=== PATIENT | female | born 1935 | race Caucasian/White ===

== ENCOUNTER 2016-06-10 17:25 | Inpatient (IN) | payer MEDICARE ==
[2016-06-10] MEDS ORDERED: ONDANSETRON 4 MG TAB.RAPDIS PO ONE (17:34)
[2016-06-10] MEDS ORDERED: NORMAL SALINE 1000 ML 1,000 ML IV ONE ×2 (17:34→19:35)
[2016-06-10] MEDS ORDERED: MORPHINE SULFATE 10 MG/ML INJ IM ONE (17:34)
--- NOTE | 2016-06-10 17:34 | ER Document Report ---
ED Medical Screen (RME) - General Stated Complaint: ABDOMINAL PAIN Notes: Patient is an 81-year-old female presents emergency or abdominal pain. Daughter states that her symptoms started about 20 minutes ago. Admits to generalized abdominal pain. Admits to nausea with vomiting with dark emesis x2. Admits to a bowel movement today which was soft but thin. Had a colonoscopy 2 weeks ago with polyps. I have greeted and performed a rapid initial assessment of this patient. A comprehensive ED assessment and evaluation of the patient, analysis of test results and completion of the medical decision making process will be conducted by additional ED providers. TRAVEL OUTSIDE OF THE [place] IN LAST 30 DAYS: No - Related Data Allergies/Adverse Reactions: No Known Allergies Allergy (Verified 03/11/16 11:08) Past Medical History GI Medical History: Reports: Hx Gastroesophageal Reflux Disease Musculoskeltal Medical History: Reports Hx Arthritis Past Surgical History: Reports: Hx Abdominal Surgery - hernia, polyps removed, Hx Herniorrhaphy, Hx Hysterectomy, Hx Orthopedic Surgery - Right Carpal tunnel surgery, Other - Ex lap with lysis of adhesions, July 2015. Colonoscopy about 12 years ago. - Immunizations Hx Diphtheria, Pertussis, Tetanus Vaccination: Yes Physical Exam - Vital signs Vitals: Temp Pulse Resp BP Pulse Ox 97.5 F 85 32 H 83/59 L 99 06/10/16 17:30 06/10/16 17:30 06/10/16 17:30 06/10/16 17:30 06/10/16 17:30 Course - Vital Signs Vital signs: Temp Pulse Resp BP Pulse Ox 97.5 F 85 32 H 83/59 L 99 06/10/16 17:30 06/10/16 17:30 06/10/16 17:30 06/10/16 17:30 06/10/16 17:30
[2016-06-10] MEDS ORDERED: ONDANSETRON HCL INJ/PF 4 MG/2 ML SDV ONE (18:02)
[2016-06-10 18:22] LABS: ABSOLUTE BASOPHILS # (AUTO) 0.1 10^3/uL (0.0-0.2); ABSOLUTE EOSINOPHILS # (AUTO) 0.1 10^3/uL (0.0-0.6); ABSOLUTE LYMPHOCYTES (AUTO) 3.1 10^3/uL (0.5-4.7); ABSOLUTE MONOCYTES (AUTO) 0.6 10^3/uL (0.1-1.4); ABSOLUTE NEUT (AUTO) 9.6 10^3/uL (1.7-8.2); BASOPHILS % (AUTO) 0.6 % (0-2); HEMATOCRIT 43.5 % (36.0-47.0); HEMOGLOBIN 14.2 g/dL (12.0-15.5); HGB HCT DIFFERENCE -0.9; LYMPHOCYTES % (AUTO) 22.8 % (13-45); MEAN CORPUSCULAR HEMOGLOBIN 30.1 pg (27.0-33.4); MEAN CORPUSCULAR HGB CONC 32.5 g/dL (32.0-36.0); MEAN CORPUSCULAR VOLUME 93 fl (80-97); MONOCYTES % (AUTO) 4.8 % (3-13); RED CELL DISTRIBUTION WIDTH 14.4 % (11.5-14.0); SEGMENTED NEUTROPHILS % (AUTO) 70.8 % (42-78); WHITE BLOOD COUNT 13.6 10^3/uL (4.0-10.5)
[2016-06-10 18:41] LABS: ALANINE AMINOTRANSFERASE 28 U/L (9-52); ALBUMIN 4.3 g/dL (3.5-5.0); ALKALINE PHOSPHATASE 121 U/L (38-126); ANION GAP 16 (5-19); ASPARTATE AMINO TRANSFERASE 22 U/L (14-36); BILIRUBIN,TOTAL 0.7 mg/dL (0.2-1.3); BLOOD UREA NITROGEN 20 mg/dL (7-20); CALCIUM 11.4 mg/dL (8.4-10.2); CARBON DIOXIDE 26 mmol/L (22-30); CHLORIDE 100 mmol/L (98-107); CREATINE KINASE 28 U/L (30-135); CREATININE RESULT 0.61 mg/dL (0.52-1.25); GLUCOSE 148 mg/dL (75-110); LIPASE 121.2 U/L (23-300); MAGNESIUM 1.8 mg/dL (1.6-2.3); POTASSIUM 4.6 mmol/L (3.6-5.0); SODIUM 141.9 mmol/L (137-145); TOTAL PROTEIN 7.5 g/dL (6.3-8.2)
[2016-06-10] MEDS ORDERED: MORPHINE SULFATE 10 MG/ML INJ IV ONE ×2 (18:46→20:21)
[2016-06-10 18:52] LABS: CREATINE KINASE MB 0.43 ng/mL (<4.55)
[2016-06-10 18:53] LABS: TROPONIN I < 0.012 ng/mL
--- NOTE | 2016-06-10 18:58 | ER Document Report ---
ED GI/ - General Chief Complaint: Abdominal Pain Stated Complaint: ABDOMINAL PAIN Time seen by provider: 18:00 Mode of Arrival: Ambulatory Information source: Patient, Relative, [facility] Records Notes: This 81-year-old female patient comes in complaining of abdominal pain with nausea and vomiting. She reports the pain started about 4 PM and was quickly proceeded by nausea with vomiting twice. She reports this pain is similar to her prior small bowel obstructions. She was admitted on 08/03/2015 with exploratory laparotomy and lysis of adhesions on 08/04/2015. She was admitted again on 03/11/2016 and treated conservatively with NG suction. She reports she was feeling well until the last several hours. TRAVEL OUTSIDE OF THE [place] IN LAST 30 DAYS: No - Related Data Allergies/Adverse Reactions: No Known Allergies Allergy (Verified 06/10/16 17:31) Past Medical History - General Information source: Patient, [facility] Records - Social History Smoking Status: Former Smoker Cigarette use (# per day): No Chew tobacco use (# tins/day): No Smoking Education Provided: No Frequency of alcohol use: None Drug Abuse: None Occupation: retired Lives with: Alone Family History: CAD, CVA, DM, Malignancy Patient has suicidal ideation: No Patient has homicidal ideation: No - Past Medical History Cardiac Medical History: Reports: None Pulmonary Medical History: Reports: None EENT Medical History: Reports: None Neurological Medical History: Reports: None Endocrine Medical History: Reports: None Renal/ Medical History: Reports: None GI Medical History: Reports: Hx Gastroesophageal Reflux Disease Musculoskeltal Medical History: Reports Hx Arthritis Psychiatric Medical History: Reports: None Past Surgical History: Reports: Hx Abdominal Surgery - Exploratory laparotomy with lysis of adhesions and detorsion of a volvulus., Hx Herniorrhaphy - Inguinal hernia repair, Hx Hysterectomy, Hx Orthopedic Surgery - Right Carpal tunnel surgery, Other - Patient reports having a colonoscopy 2 weeks ago at which time several poly - Immunizations Hx Diphtheria, Pertussis, Tetanus Vaccination: Yes Hx Pneumococcal Vaccination: 01/10/16 Review of Systems - Review of Systems Constitutional: No symptoms reported EENT: No symptoms reported Cardiovascular: No symptoms reported Respiratory: No symptoms reported Gastrointestinal: See HPI Genitourinary: No symptoms reported Female Genitourinary: Post menopausal Musculoskeletal: No symptoms reported Skin: No symptoms reported Hematologic/Lymphatic: No symptoms reported Neurological/Psychological: No symptoms reported Physical Exam - Vital signs Vitals: Temp Pulse Resp BP Pulse Ox 97.5 F 85 32 H 83/59 L 99 06/10/16 17:30 06/10/16 17:30 06/10/16 17:30 06/10/16 17:30 06/10/16 17:30 Interpretation: Hypotensive - General General appearance: Alert, Anxious In distress: Mild - HEENT Head: Normocephalic, Atraumatic Eyes: Normal Pupils: PERRL Neck: Normal - Respiratory Respiratory status: No respiratory distress Breath sounds: Normal - Cardiovascular Rhythm: Regular Heart sounds: Normal auscultation Murmur: No - Abdominal Distension: Distended, Tympanitic Bowel sounds: Hyperactive Tenderness: Tender - Back Back: Normal - Extremities General upper extremity: Normal inspection General lower extremity: Normal inspection - Neurological Neuro grossly intact: Yes - Psychological Associated symptoms: Normal affect, Normal mood - Skin Skin Temperature: Warm Skin Moisture: Dry Skin Color: Normal Course - Vital Signs Vital signs: Temp Pulse Resp BP Pulse Ox 97.5 F 85 32 H 83/59 L 97 06/10/16 17:30 06/10/16 17:30 06/10/16 17:30 06/10/16 17:30 06/10/16 17:45 - Laboratory Result Diagrams: 06/10/16 18:00 06/10/16 18:00 Laboratory results interpreted by me: 06/10/16 06/10/16 18:00 18:00 WBC 13.6 H RDW 14.4 H Absolute Neutrophils 9.6 H Glucose 148 H Calcium 11.4 H Creatine Kinase 28 L - Diagnostic Test Radiology reviewed: Image reviewed, Reports reviewed - Developing small bowel obstruction - EKG Interpretation by Me EKG shows normal: Sinus rhythm, Huffman, Intervals, QRS Complexes, ST-T Waves Rate: Normal - 58 Rhythm: NSR - Consults Dr. Hart Time consulted: 19:30 Consulted provider: will come to ER Discharge - Discharge Clinical Impression: Small bowel obstruction Condition: Stable Disposition: ADMITTED INPATIENT Admitting Provider: Surgicalist Unit Admitted: Telemetry Referrals: CHEN CHOU MD [Primary Care Provider] - Follow up as needed
--- NOTE | 2016-06-10 20:29 | PDOC H&P ---
History of Present Illness Admission Date/PCP: 06/10/16 20:08 CHEN CHOU MD Patient complains of: Abdominal pain nausea and vomiting History of Present Illness: NARENDRA PAPPAS is a 81 year old female presents to the emergency department by ground rescue complaining of acute onset abdominal pain, nausea and vomiting 2 this afternoon. Symptoms were similar to episodes associated with small bowel obstruction last year, is requiring exploratory laparotomy, lysis of adhesions, and in February, requiring nasogastric decompression only. She was seen emerging from reports she is found to have abdominal pain and distention. Acute abdominal series suggested small bowel obstruction. He was consulted she was advised admission. Of note the patient is 2 weeks status post colonoscopy with polypectomy 16 Dr. jay. Patient states she did well after that procedure. Past Medical History Cardiac Medical History: Reports: None Pulmonary Medical History: Reports: None EENT Medical History: Reports: None Neurological Medical History: Reports: None Endocrine Medical History: Reports: None Renal/ Medical History: Reports: None GI Medical History: Reports: Gastroesophageal Reflux Disease Musculoskeltal Medical History: Reports: Arthritis Psychiatric Medical History: Reports: None Past Surgical History Past Surgical History: Reports: Herniorrhaphy - Inguinal hernia repair, Hysterectomy, Orthopedic Surgery - Right Carpal tunnel surgery, Other - Patient reports having a colonoscopy 2 weeks ago with polypectomy 16; Social History Lives with: Alone Smoking Status: Former Smoker Frequency of Alcohol Use: None Hx Recreational Drug Use: No Drugs: None Hx Prescription Drug Abuse: No Family History Family History: CAD, CVA, DM, Malignancy Parental Family History Reviewed: Yes Children Family History Reviewed: Yes Sibling(s) Family History Reviewed.: Yes Medication/Allergy Home Medications: Celecoxib [Celecoxib] 200 mg PO DAILYP PRN 08/03/15 Omeprazole [Omeprazole] 20 mg PO DAILY 08/03/15 Allergies/Adverse Reactions: No Known Allergies Allergy (Verified 06/10/16 17:31) Review of Systems Constitutional: ABSENT: chills, fever(s), headache(s), weight gain, weight loss Eyes: ABSENT: visual disturbances Ears: ABSENT: hearing changes Cardiovascular: ABSENT: chest pain, dyspnea on exertion, edema, orthropnea, palpitations Gastrointestinal: PRESENT: other - Patient is status post post lysis of adhesions, laparotomy, 2016 [facility] Physical Exam Vital Signs: Temp Pulse Resp BP Pulse Ox 97.5 F 85 32 H 83/59 L 97 06/10/16 17:30 06/10/16 17:30 06/10/16 17:30 06/10/16 17:30 06/10/16 17:45 General appearance: PRESENT: mild distress Head exam: PRESENT: normocephalic Eye exam: PRESENT: EOMI Ear exam: PRESENT: normal external ear exam Mouth exam: PRESENT: dry mucosa Neck exam: PRESENT: full ROM Respiratory exam: PRESENT: clear to auscultation tonya Cardiovascular exam: PRESENT: RRR Pulses: PRESENT: normal carotid pulses GI/Abdominal exam: PRESENT: diminished bowel sounds, other - Mildly distended abdomen with diffuse tenderness although no guarding. Rectal exam: PRESENT: deferred Musculoskeletal exam: PRESENT: full ROM Neurological exam: PRESENT: oriented to person, oriented to place, oriented to time, oriented to situation Psychiatric exam: PRESENT: agitated Skin exam: PRESENT: other - Multiple skin lesions consistent with sun damaged skin Results Impressions: Acute Abdomen Series 06/10/16 17:34 IMPRESSION: There is gaseous distention of multiple small bowel loops most consistent with an ileus pattern. The possibility of a developing small bowel obstruction cannot be completely excluded however. Clinical correlation and followup is recommended. Status: Image reviewed by me - Acute abdominal series reviewed; multiple dilated loops of small bowel with air-fluid levels; no free air; some scattered pockets of air in the colon Assessment & Plan - Diagnosis (1) Small bowel obstruction Is this a current diagnosis for this admission?: YesPlan: 1. Admission, IV fluids, nasogastric decompression, peptic ulcer prophylaxis. 2. If patient no better in the morning, we'll obtain contrast study through the nasogastric tube; explained the plan to the patient and her family. I believe they understand and agree to proceed. - Time Time Spent: 50 to 70 Minutes Critical Time spent with patient: 15-24 minutes Anticipated discharge: Home - Inpatient Certification Based on my medical assessment, after consideration of the patient's comorbidities, presenting symptoms, or acuity I expect that the services needed warrant INPATIENT care.: Yes I certify that my determination is in accordance with my understanding of Medicare's requirements for reasonable and necessary INPATIENT services [42 CFR 412.3e].: Yes Medical Necessity: Need For IV Fluids, Need for Pain Control
--- NOTE | 2016-06-10 20:32 | EKG REPORT ---
SEVERITY:- NORMAL ECG - SINUS RHYTHM : Confirmed by: Minerva Montez MD 10-Jun-2016 20:31:53
[2016-06-10] MEDS ORDERED: LIDOCAINE 2% JELLY 5 ML TUBE TOP ONE (20:55)
[2016-06-10] MEDS: RINGERS SOLUTION,LACTATED 1,000 ML IV PRN (21:00)
[2016-06-10] MEDS ORDERED: FAMOTIDINE INJ/PF 20 MG/2 ML SDV IV ONE (22:00)
[2016-06-11] MEDS ORDERED: MORPHINE SULFATE 10 MG/ML INJ IV PRN (00:11)
[2016-06-11] MEDS ORDERED: PROMETHAZINE HCL INJ 25 MG/1 ML VIAL IV PRN (00:20)
[2016-06-11 00:23] LABS: APPEARANCE,URINE SLIGHTLY-CLOUDY; BILIRUBIN,URINE NEGATIVE (NEGATIVE); GLUCOSE, URINE NEGATIVE (NEGATIVE); KETONES,URINE 20 mg/dL (NEGATIVE); LEUKOCYTE ESTERASE,URINE NEGATIVE (NEGATIVE); NITRITE,URINE NEGATIVE (NEGATIVE); PROTEIN,URINE NEGATIVE (NEGATIVE); URINE SPECIFIC GRAVITY 1.016; UROBILINOGEN,URINE NEGATIVE mg/dL (<2.0)
[2016-06-11 09:52] LABS: ABSOLUTE LYMPHOCYTES (AUTO) 0.9 10^3/uL (0.5-4.7); ABSOLUTE NEUT (AUTO) 13.9 10^3/uL (1.7-8.2); BASOPHILS % (AUTO) 0.1 % (0-2); HEMATOCRIT 46.9 % (36.0-47.0); HEMOGLOBIN 15.3 g/dL (12.0-15.5); LYMPHOCYTES % (AUTO) 5.8 % (13-45); MEAN CORPUSCULAR HEMOGLOBIN 30.6 pg (27.0-33.4); MEAN CORPUSCULAR HGB CONC 32.6 g/dL (32.0-36.0); MEAN CORPUSCULAR VOLUME 94 fl (80-97); MONOCYTES % (AUTO) 6.4 % (3-13); RED CELL DISTRIBUTION WIDTH 14.8 % (11.5-14.0); SEGMENTED NEUTROPHILS % (AUTO) 87.7 % (42-78); WHITE BLOOD COUNT 15.9 10^3/uL (4.0-10.5)
--- NOTE | 2016-06-11 09:53 | PDOC PROGRESS REPORT ---
Subjective Progress Note for:: 06/11/16 Subjective:: The patient feels no better; denies flatus Physical Exam Vital Signs: Temp Pulse Resp BP Pulse Ox 97.5 F 114 H 16 119/49 L 90 L 06/11/16 07:22 06/11/16 07:22 06/11/16 07:22 06/11/16 07:22 06/11/16 07:22 Intake & Output 06/10/16 06/11/16 06/12/16 06:59 06:59 06:59 Intake Total 1421 Output Total 900 Balance 521 Weight 50.9 kg General appearance: PRESENT: mild distress GI/Abdominal exam: PRESENT: other - Nasogastric tube draining bilious material, minimal amount in receptacle; Abdomen still slightly distended and diffusely tender Results Laboratory Results: 06/10/16 23:36 Urine Color YELLOW Urine Appearance SLIGHTLY-CLOUDY Urine pH 6.0 Ur Specific [place] 1.016 Urine Protein NEGATIVE Urine Glucose (UA) NEGATIVE Urine Ketones 20 H Urine Blood NEGATIVE Urine Nitrite NEGATIVE Ur Leukocyte Esterase NEGATIVE Urine WBC (Auto) 1 Urine RBC (Auto) 1 Impressions: Chest X-Ray 06/10/16 00:00 IMPRESSION: NG tube with its tip in the left upper quadrant presumably in the stomach. Acute Abdomen Series 06/10/16 17:34 IMPRESSION: There is gaseous distention of multiple small bowel loops most consistent with an ileus pattern. The possibility of a developing small bowel obstruction cannot be completely excluded however. Clinical correlation and followup is recommended. KUB X-Ray 06/11/16 07:00 IMPRESSION: Again there is gaseous distention of multiple small bowel loops which again is most consistent with an ileus. Gas and fecal material is identified throughout the colon. Other findings as noted above Status: Imported from PACS - Morning electrolytes and CBC pending Assessment & Plan - Diagnosis (1) Small bowel obstruction Is this a current diagnosis for this admission?: YesPlan: 1. Patient not improved despite NG tube IV fluids. 2. We'll obtain limited contrast study to confirm mechanical obstruction; patient will likely need exploratory surgery today I have explained this to the patient.
[2016-06-11] MEDS: FAMOTIDINE INJ/PF 20 MG/2 ML SDV IV SCH ×2 (09:58→22:50)
[2016-06-11] MEDS: RINGERS SOLUTION,LACTATED 1,000 ML IV PRN ×2 (09:58→16:20)
[2016-06-11 10:16] LABS: ANION GAP 14 (5-19); BLOOD UREA NITROGEN 20 mg/dL (7-20); CALCIUM 9.7 mg/dL (8.4-10.2); CARBON DIOXIDE 21 mmol/L (22-30); CHLORIDE 106 mmol/L (98-107); CREATININE RESULT 0.61 mg/dL (0.52-1.25); GLUCOSE 189 mg/dL (75-110); POTASSIUM 4.3 mmol/L (3.6-5.0)
[2016-06-11] MEDS ORDERED: SUCCINYLCHOLINE CHLORIDE INJ 200 MG/10 ML VIAL ONE (10:43)
[2016-06-11] MEDS ORDERED: PHENYLEPHRINE HCL INJ/PF 10 MG/1 ML SDV ONE ×2 (10:43→15:08)
[2016-06-11] MEDS ORDERED: LIDOCAINE 2% INJ-PF (20 MG/ML) 10 ML AMPUL ONE (10:43)
[2016-06-11] MEDS ORDERED: ONDANSETRON HCL INJ/PF 4 MG/2 ML SDV ONE (10:43)
[2016-06-11] MEDS ORDERED: DEXAMETHASONE SOD PHOSPHATE INJ 4 MG/1 ML VIAL ONE (10:43)
[2016-06-11] MEDS ORDERED: ROCURONIUM BROMIDE INJ 50 MG/5 ML VIAL IV ONE (10:43)
[2016-06-11] MEDS ORDERED: MIDAZOLAM 2 MG/2 ML INJ ONE (12:37)
[2016-06-11] MEDS ORDERED: FENTANYL CITRATE INJ/PF 250 MCG/5 ML AMPULE ONE (12:37)
[2016-06-11] MEDS ORDERED: FENTANYL CITRATE INJ/PF 100 MCG/2 ML AMPUL ONE (12:37)
[2016-06-11] MEDS ORDERED: DEXMEDETOMIDINE INJ 80 MCG/20 ML VIAL IV ONE (12:38)
[2016-06-11] MEDS ORDERED: PROPOFOL INJ 200 MG/20 ML VIAL IV ONE (12:38)
[2016-06-11] MEDS ORDERED: ACETAMINOPHEN 100 ML IV ONE (12:38)
[2016-06-11] MEDS ORDERED: MORPHINE SULFATE 10 MG/ML INJ ONE (12:38)
[2016-06-11] MEDS ORDERED: BUPIVACAINE HCL 0.25 % INJ/PF (2.5 MG/1 ML) 30 ML VIAL ONE (12:53)
[2016-06-11] MEDS ORDERED: CEFAZOLIN INJ 1 GM VIAL ONE (13:06)
[2016-06-11] MEDS ORDERED: BUPIVACAINE INJ/PF LIPOSOME/PF 266 MG/20 ML SDV ONE (14:56)
[2016-06-11] MEDS ORDERED: PROPOFOL 100 ML IV ONE (15:17)
[2016-06-11] MEDS ORDERED: FUROSEMIDE INJ/PF 40 MG/4 ML SDV ONE ×2 (15:44→15:45)
[2016-06-11] MEDS ORDERED: NORMAL SALINE INJ/PF 0.9% 10 ML SDV IV PRN (15:46)
--- NOTE | 2016-06-11 16:05 | Operative Report ---
Operative Report DATE OF SURGERY: 06/11/16 PREOPERATIVE DIAGNOSIS: 1. Small bowel obstruction. 2. Acute abdomen. 3. Metabolic acidosis. 4. Evolving sepsis POSTOPERATIVE DIAGNOSIS: Same with. 1. Intra-abdominal adhesions. 2. Closed loop obstruction of the distal ileum with full-thickness hemorrhagic necrosis of the small bowel. 3. Extensive duodenal and jejunal diverticulum OPERATION: 1. Placement of left subclavian central venous access catheter. 2. Exploratory laparotomy. 3. Lysis of adhesions. 4. Segmental small bowel resection, distal ileum, 85 cm with ilio ileostomy stapled anastomosis SURGEON: SOLOMON ROJAS ANESTHESIA: GA TISSUE REMOVED OR ALTERED: Segment of distal ileum COMPLICATIONS: None ESTIMATED BLOOD LOSS: 50 mL INTRAOPERATIVE FINDINGS: See below PROCEDURE: The patient was taken from the preoperative holding area to the main operating room and general anesthesia was induced. The abdomen was exposed as was the chest. We placed a central line in the left subclavian position using the standard Seldinger technique under sterile conditions. There Was excellent aspiration of blood flow through all 3 lmumens. Biopatch, sutures and sterile dressing applied. The abdomen was prepped and draped in a sterile fashion. Surgical plan a surgical timeout conducted. The abdomen was opened through a standard midline incision above and below the umbilicus along the previous midline scar. There were adhesions between the greater omentum and anterior abdominal wall which were taken down with electrocautery. Entry into the abdominal cavity revealed a significant amount of serosanguineous fluid; approximately 1500 mL was aspirated. Then eviscerated small bowel and revealed the acute problem which was a large closed-loop obstruction involving the distal ileum. The obstructed small bowel was black consistent with full-thickness ischemic necrosis. At the 2 ends of the obstruction were an adhesive band, and a very narrowed lumen at the opposite end. I could not ascertain which was proximal and which was distal as I was more interested in resecting the bowel immediately. To accomplish this, I lysed the single adhesion and then I used a series of clamps to come across the associated mesentery. The specimen was passed off the table as distal ileum. It measured approximately 85 cm. The mesenteric clamps were tied off with 0 and 2-0 Vicryl suture. We returned the remaining intestines to the abdomen, and completed the aspiration of fluid, which was non-feculent, and irrigation of the peritoneal cavity with several liters of warm saline. We now milked the dilated small bowel from the ileum in a retrograde fashion all the way through the jejunum through the duodenum, and then into the stomach excessively aspirating the succus decompressing the small bowel. Of note there were extensive duodenal and jejunal diverticulum of varying sizes. Photographs of the small intestine were taken. The diverticulum did not appear to be involved in the acute pathologic process nor did the colon. Complete visualization of the undersurface of the liver and stomach revealed no other pathology. The gastric tube was confirmed to be in good position. During this time the patient received approximately 2-1/2-3 L of crystalloid, and low-dose Nigel-Synephrine. We now reinspected the small and distal ileum, and felt the 2 ends were suitable for restoring small bowel continuity. Minimal edema, and viability of the intestine appeared to be excellent based on peristalsis, and pink appearance of the serosa. Of note the patient had atherosclerotic aortic disease however there was good blood flow in the small bowel mesentery by palpation. A [id number], functional end-to-end ileoileostomy was created using the CATIA 55 stapler, blue load, and closing the enterotomies with a single firing of the TA 60 stapler. Of note there was a small of her generally viable bowel wall on the proximal ileum which was taken off with a second firing of the TA 60 stapler. We examined the anastomosis and there was no evidence of ischemia or tension, and the patency was confirmed to be excellent. The small bowel mesenteric rent closed with a 2-0 running Vicryl suture. We returned the peritoneal cavity checked for any mechanical bleeding there was none. Nasogastric tube was again confirmed to be in excellent position, and the small bowel had been successfully decompressed of the stagnant. Sponge counts are correct. Abdomen was closed with 2 double-stranded #1 PDS sutures, skin approximated with chiquis, long acting exparell anesthetic local was deployed in the subcutaneous tissues. Dressing was applied. Patient was taken to the ICU in guarded condition. SHe remained extubated with support lines in position.
[2016-06-11 16:07] LABS: ABSOLUTE MONOCYTES (AUTO) 0.3 10^3/uL (0.1-1.4); ABSOLUTE NEUT (AUTO) 4.1 10^3/uL (1.7-8.2); BASOPHILS % (AUTO) 0.4 % (0-2); EOSINOPHILS % (AUTO) 0.2 % (0-6); HGB HCT DIFFERENCE -0.8; LYMPHOCYTES % (AUTO) 17.5 % (13-45); MEAN CORPUSCULAR HEMOGLOBIN 30.4 pg (27.0-33.4); MEAN CORPUSCULAR HGB CONC 32.7 g/dL (32.0-36.0); MEAN CORPUSCULAR VOLUME 93 fl (80-97); MONOCYTES % (AUTO) 6.3 % (3-13); RED BLOOD COUNT 4.08 10^6/uL (3.72-5.28); RED CELL DISTRIBUTION WIDTH 14.3 % (11.5-14.0); SEGMENTED NEUTROPHILS % (AUTO) 75.6 % (42-78); WHITE BLOOD COUNT 5.5 10^3/uL (4.0-10.5)
[2016-06-11 16:14] LABS: HEMOGLOBIN 12.4 g/dL (12.0-15.5)
[2016-06-11 16:19] LABS: ANION GAP 10 (5-19); BLOOD UREA NITROGEN 22 mg/dL (7-20); CALCIUM 8.4 mg/dL (8.4-10.2); CARBON DIOXIDE 19 mmol/L (22-30); CHLORIDE 110 mmol/L (98-107); CREATININE RESULT 0.62 mg/dL (0.52-1.25); GLUCOSE 131 mg/dL (75-110); POTASSIUM 3.8 mmol/L (3.6-5.0); SODIUM 139.3 mmol/L (137-145)
[2016-06-11] MEDS: DEXTROSE 5%-WATER 250 ML with PHENYLEPHRINE HCL 40 MG IV PRN ×2 (16:22)
--- NOTE | 2016-06-11 16:32 | PDOC CONSULTATION ---
Consultation Consult Date: 06/11/16 Attending physician:: SOLOMON ROJAS Consult reason:: Medical Management - post op History of Present Illness Admission Date/PCP: 06/10/16 20:18 CHEN CHOU MD History of Present Illness: NARENDRA PAPPAS is a 81 year old female with no significant past medical history was admitted to Dr. Rojas service when she presented with small bowel obstruction Underwent laparotomy today and small bowel resection for ischemic bowel ; a medical consultation was called Past Medical History Cardiac Medical History: Reports: None Pulmonary Medical History: Reports: None EENT Medical History: Reports: None Neurological Medical History: Reports: None Endocrine Medical History: Reports: None Renal/ Medical History: Reports: None GI Medical History: Reports: Gastroesophageal Reflux Disease Musculoskeltal Medical History: Reports: Arthritis Psychiatric Medical History: Reports: None Past Surgical History Past Surgical History: Reports: Herniorrhaphy - Inguinal hernia repair, Hysterectomy, Orthopedic Surgery - Right Carpal tunnel surgery, Other - Patient reports having a colonoscopy 2 weeks ago with polypectomy 16; Social History Lives with: Alone Smoking Status: Former Smoker Frequency of Alcohol Use: None Hx Recreational Drug Use: No Drugs: None Hx Prescription Drug Abuse: No - Advance Directive Resuscitation Status: Full Code Family History Family History: CAD, CVA, DM, Malignancy Parental Family History Reviewed: Yes Children Family History Reviewed: Yes Sibling(s) Family History Reviewed.: Yes - He Medication/Allergy Home Medications: Omeprazole [Omeprazole] 20 mg PO DAILY 08/03/15 Allergies/Adverse Reactions: No Known Allergies Allergy (Verified 06/10/16 17:31) Review of Systems ROS unobtainable: Due to endotracheal tube Physical Exam Vital Signs: Temp Pulse Resp BP Pulse Ox 97.4 F 80 10 L 82/50 L 100 06/11/16 15:24 06/11/16 15:39 06/11/16 15:39 06/11/16 15:39 06/11/16 15:40 Intake & Output 06/10/16 06/11/16 06/12/16 00:59 00:59 00:59 Intake Total 5742 Output Total 900 2900 Balance -900 2842 Weight 50.9 kg General appearance: PRESENT: other - Intubated and sedated Head exam: PRESENT: atraumatic, normocephalic Eye exam: PRESENT: conjunctiva pink, EOMI, PERRLA. ABSENT: scleral icterus Neck exam: ABSENT: carotid bruit, JVD, lymphadenopathy, thyromegaly Respiratory exam: PRESENT: clear to auscultation tonya. ABSENT: rales, rhonchi, wheezes Cardiovascular exam: PRESENT: RRR. ABSENT: diastolic murmur, rubs, systolic murmur GI/Abdominal exam: PRESENT: distended Neurological exam: PRESENT: other - Patient is sedated Cannot perform Results Laboratory Results: 06/11/16 15:55 06/11/16 15:55 06/10/16 06/11/16 06/11/16 23:36 09:36 09:36 WBC 15.9 H RBC 5.00 Hgb 15.3 Hct 46.9 MCV 94 MCH 30.6 MCHC 32.6 RDW 14.8 H Plt Count 300 Seg Neutrophils % 87.7 H Lymphocytes % 5.8 L Monocytes % 6.4 Eosinophils % 0.0 Basophils % 0.1 Absolute Neutrophils 13.9 H Absolute Lymphocytes 0.9 Absolute Monocytes 1.0 Absolute Eosinophils 0.0 Absolute Basophils 0.0 Sodium 141.0 Potassium 4.3 Chloride 106 Carbon Dioxide 21 L Anion Gap 14 BUN 20 Creatinine 0.61 Est GFR ( Amer) > 60 Est GFR (Non-Af Amer) > 60 Glucose 189 H Calcium 9.7 Triglycerides Urine Color YELLOW Urine Appearance SLIGHTLY-CLOUDY Urine pH 6.0 Ur Specific [place] 1.016 Urine Protein NEGATIVE Urine Glucose (UA) NEGATIVE Urine Ketones 20 H Urine Blood NEGATIVE Urine Nitrite NEGATIVE Ur Leukocyte Esterase NEGATIVE Urine WBC (Auto) 1 Urine RBC (Auto) 1 06/11/16 06/11/16 06/11/16 09:36 15:55 15:55 WBC 5.5 RBC 4.08 Hgb 12.4 D Hct 38.0 MCV 93 MCH 30.4 MCHC 32.7 RDW 14.3 H Plt Count 196 Seg Neutrophils % 75.6 Lymphocytes % 17.5 Monocytes % 6.3 Eosinophils % 0.2 Basophils % 0.4 Absolute Neutrophils 4.1 Absolute Lymphocytes 1.0 Absolute Monocytes 0.3 Absolute Eosinophils 0.0 Absolute Basophils 0.0 Sodium 139.3 Potassium 3.8 Chloride 110 H Carbon Dioxide 19 L Anion Gap 10 BUN 22 H Creatinine 0.62 Est GFR ( Amer) > 60 Est GFR (Non-Af Amer) > 60 Glucose 131 H Calcium 8.4 Triglycerides 67 Urine Color Urine Appearance Urine pH Ur Specific [place] Urine Protein Urine Glucose (UA) Urine Ketones Urine Blood Urine Nitrite Ur Leukocyte Esterase Urine WBC (Auto) Urine RBC (Auto) EKG Comments: NSR Impressions: Acute Abdomen Series 06/10/16 17:34 IMPRESSION: There is gaseous distention of multiple small bowel loops most consistent with an ileus pattern. The possibility of a developing small bowel obstruction cannot be completely excluded however. Clinical correlation and followup is recommended. Small Bowel X-Ray 06/11/16 00:00 IMPRESSION: Study was terminated before completion. Multiple air distended bowel loops are again identified. KUB X-Ray 06/11/16 07:00 IMPRESSION: Again there is gaseous distention of multiple small bowel loops which again is most consistent with an ileus. Gas and fecal material is identified throughout the colon. Other findings as noted above Chest X-Ray 06/11/16 15:42 IMPRESSION: Support lines and tubes are in satisfactory position. Minimal right basilar atelectasis. Small effusions. Assessment & Plan - Diagnosis (1) Ischemic bowel disease Is this a current diagnosis for this admission?: YesPlan: post SB resection management as per surgery (2) Hypotension Qualifiers: Hypotension type: other hypotension type Qualified Code(s): I95.89 - Other hypotension Is this a current diagnosis for this admission?: YesPlan: CVP low at 3 Patient is volume depleted Fluid bolus 1000 ml now increase IV fluids maintain CVP around 8 (normal 4-12 ) early sepsis - mild metabolic acidosis blood cultures Ertapenem IV - Time Critical Time spent with patient: 15-24 minutes
[2016-06-11] MEDS: PROPOFOL 100 ML IV PRN (17:09)
[2016-06-11] MEDS: MORPHINE SULFATE 10 MG/ML INJ IV PRN (17:09)
[2016-06-11] MEDS ORDERED: ERTAPENEM SODIUM INJ 1 GM VIAL IV PRN (17:45)
[2016-06-11] MEDS ORDERED: ERTAPENEM SODIUM INJ 1 GM VIAL ONE (17:53)
[2016-06-11] MEDS: ERTAPENEM SODIUM 1 GM in NORMAL SALINE 50 ML IV SCH (18:05)
[2016-06-12] MEDS: PROPOFOL 100 ML IV PRN ×2 (00:41→08:05)
[2016-06-12] MEDS: MORPHINE SULFATE 10 MG/ML INJ IV PRN ×4 (00:42→21:07)
[2016-06-12] MEDS: DEXTROSE 5%-WATER 250 ML with PHENYLEPHRINE HCL 40 MG IV PRN ×2 (04:51)
[2016-06-12] MEDS: RINGERS SOLUTION,LACTATED 1,000 ML IV PRN ×2 (04:52→21:06)
[2016-06-12 05:32] LABS: ABSOLUTE LYMPHOCYTES (AUTO) 1.2 10^3/uL (0.5-4.7); ABSOLUTE NEUT (AUTO) 7.7 10^3/uL (1.7-8.2); BASOPHILS % (AUTO) 0.1 % (0-2); HEMATOCRIT 32.8 % (36.0-47.0); HEMOGLOBIN 10.8 g/dL (12.0-15.5); HGB HCT DIFFERENCE -0.4; LYMPHOCYTES % (AUTO) 12.6 % (13-45); MEAN CORPUSCULAR HEMOGLOBIN 30.4 pg (27.0-33.4); MEAN CORPUSCULAR HGB CONC 32.9 g/dL (32.0-36.0); MEAN CORPUSCULAR VOLUME 93 fl (80-97); MONOCYTES % (AUTO) 10.2 % (3-13); RED BLOOD COUNT 3.55 10^6/uL (3.72-5.28); RED CELL DISTRIBUTION WIDTH 14.5 % (11.5-14.0); SEGMENTED NEUTROPHILS % (AUTO) 77.1 % (42-78); WHITE BLOOD COUNT 9.9 10^3/uL (4.0-10.5)
[2016-06-12 05:44] LABS: ALANINE AMINOTRANSFERASE 24 U/L (9-52); ALBUMIN 1.9 g/dL (3.5-5.0); ALKALINE PHOSPHATASE 37 U/L (38-126); ANION GAP 6 (5-19); ASPARTATE AMINO TRANSFERASE 13 U/L (14-36); BILIRUBIN,TOTAL 0.3 mg/dL (0.2-1.3); BLOOD UREA NITROGEN 20 mg/dL (7-20); CALCIUM 8.6 mg/dL (8.4-10.2); CARBON DIOXIDE 25 mmol/L (22-30); CHLORIDE 107 mmol/L (98-107); CREATININE RESULT 0.55 mg/dL (0.52-1.25); GLUCOSE 127 mg/dL (75-110); POTASSIUM 4.2 mmol/L (3.6-5.0); SODIUM 138.4 mmol/L (137-145); TOTAL PROTEIN 3.7 g/dL (6.3-8.2)
[2016-06-12 05:45] LABS: ARTERIAL BLOOD BASE EXCESS 2.1 mmol/L
--- NOTE | 2016-06-12 08:55 | PDOC CONSULTATION ---
Consultation Consult Date: 06/12/16 Attending physician:: SOLOMON ROJAS Consult reason:: resp fail History of Present Illness Admission Date/PCP: 06/10/16 20:18 CHEN CHOU MD History of Present Illness: NARENDRA PAPPAS is a 81 year old female with no significant past medical history was admitted to Dr. Rojas service when she presented with small bowel obstruction Underwent laparotomy today and small bowel resection for ischemic bowel ; a medical consultation was called leading to pulmonary consult to wean and extubate when pissible Past Medical History Cardiac Medical History: Reports: None Pulmonary Medical History: Reports: None EENT Medical History: Reports: None Neurological Medical History: Reports: None Endocrine Medical History: Reports: None Renal/ Medical History: Reports: None GI Medical History: Reports: Gastroesophageal Reflux Disease Musculoskeltal Medical History: Reports: Arthritis Psychiatric Medical History: Reports: None Past Surgical History Past Surgical History: Reports: Herniorrhaphy - Inguinal hernia repair, Hysterectomy, Orthopedic Surgery - Right Carpal tunnel surgery, Other - Patient reports having a colonoscopy 2 weeks ago with polypectomy 16; Social History Information Source: [facility] Records Lives with: Alone Smoking Status: Former Smoker Frequency of Alcohol Use: None Hx Recreational Drug Use: No Drugs: None Hx Prescription Drug Abuse: No - Advance Directive Resuscitation Status: Full Code Family History Family History: CAD, CVA, DM, Malignancy Parental Family History Reviewed: No Children Family History Reviewed: No Sibling(s) Family History Reviewed.: No Medication/Allergy Home Medications: Celecoxib [Celebrex 200 mg Capsule] 200 mg PO DAILY 06/12/16 Omeprazole 20 mg PO DAILY 06/12/16 Polyethylene Glycol 3350 [Miralax Powder 17 gm/Packet] 17 gm PO DAILY 06/12/16 Allergies/Adverse Reactions: No Known Allergies Allergy (Verified 06/10/16 17:31) Review of Systems ROS unobtainable: Due to endotracheal tube Physical Exam Vital Signs: Temp Pulse Resp BP Pulse Ox 97.6 F 79 10 L 118/49 L 99 06/12/16 08:00 06/11/16 15:54 06/12/16 06:35 06/12/16 06:35 06/12/16 06:35 Intake & Output 06/11/16 06/12/16 06/13/16 06:59 06:59 06:59 Intake Total 1421 15582 Output Total 900 4770 Balance 521 2673 Weight 50.9 kg 61.7 kg General appearance: PRESENT: no acute distress, disheveled, thin Head exam: PRESENT: atraumatic, normocephalic Eye exam: PRESENT: conjunctiva pale Mouth exam: PRESENT: neck supple, tongue midline, other - ET tube Neck exam: ABSENT: carotid bruit, JVD, lymphadenopathy, thyromegaly Respiratory exam: PRESENT: clear to auscultation tonya, prolonged expiratory phas Cardiovascular exam: PRESENT: irregular rhythm Pulses: PRESENT: normal radial pulses GI/Abdominal exam: PRESENT: other - post op dressing dry Rectal exam: PRESENT: deferred Gentrourinary exam: PRESENT: indwelling catheter Musculoskeletal exam: PRESENT: normal inspection Skin exam: PRESENT: dry, warm Results Laboratory Results: 06/12/16 05:17 06/12/16 05:17 06/11/16 06/11/16 06/11/16 09:36 09:36 09:36 WBC 15.9 H RBC 5.00 Hgb 15.3 Hct 46.9 MCV 94 MCH 30.6 MCHC 32.6 RDW 14.8 H Plt Count 300 Seg Neutrophils % 87.7 H Lymphocytes % 5.8 L Monocytes % 6.4 Eosinophils % 0.0 Basophils % 0.1 Absolute Neutrophils 13.9 H Absolute Lymphocytes 0.9 Absolute Monocytes 1.0 Absolute Eosinophils 0.0 Absolute Basophils 0.0 Carbonic Acid HCO3/H2CO3 Ratio ABG pH ABG pCO2 ABG pO2 ABG HCO3 ABG O2 Saturation ABG Base Excess FiO2 Sodium 141.0 Potassium 4.3 Chloride 106 Carbon Dioxide 21 L Anion Gap 14 BUN 20 Creatinine 0.61 Est GFR ( Amer) > 60 Est GFR (Non-Af Amer) > 60 Glucose 189 H Calcium 9.7 Total Bilirubin AST ALT Alkaline Phosphatase Total Protein Albumin Triglycerides 67 06/11/16 06/11/16 06/12/16 15:55 15:55 05:17 WBC 5.5 9.9 RBC 4.08 3.55 L Hgb 12.4 D 10.8 L Hct 38.0 32.8 L MCV 93 93 MCH 30.4 30.4 MCHC 32.7 32.9 RDW 14.3 H 14.5 H Plt Count 196 201 Seg Neutrophils % 75.6 77.1 Lymphocytes % 17.5 12.6 L Monocytes % 6.3 10.2 Eosinophils % 0.2 0.0 Basophils % 0.4 0.1 Absolute Neutrophils 4.1 7.7 Absolute Lymphocytes 1.0 1.2 Absolute Monocytes 0.3 1.0 Absolute Eosinophils 0.0 0.0 Absolute Basophils 0.0 0.0 Carbonic Acid HCO3/H2CO3 Ratio ABG pH ABG pCO2 ABG pO2 ABG HCO3 ABG O2 Saturation ABG Base Excess FiO2 Sodium 139.3 Potassium 3.8 Chloride 110 H Carbon Dioxide 19 L Anion Gap 10 BUN 22 H Creatinine 0.62 Est GFR ( Amer) > 60 Est GFR (Non-Af Amer) > 60 Glucose 131 H Calcium 8.4 Total Bilirubin AST ALT Alkaline Phosphatase Total Protein Albumin Triglycerides 06/12/16 06/12/16 05:17 05:32 WBC RBC Hgb Hct MCV MCH MCHC RDW Plt Count Seg Neutrophils % Lymphocytes % Monocytes % Eosinophils % Basophils % Absolute Neutrophils Absolute Lymphocytes Absolute Monocytes Absolute Eosinophils Absolute Basophils Carbonic Acid 1.15 HCO3/H2CO3 Ratio 22:1 ABG pH 7.45 ABG pCO2 38.3 ABG pO2 86.9 ABG HCO3 26.1 H ABG O2 Saturation 97.0 ABG Base Excess 2.1 FiO2 35% Sodium 138.4 Potassium 4.2 Chloride 107 Carbon Dioxide 25 Anion Gap 6 BUN 20 Creatinine 0.55 Est GFR ( Amer) > 60 Est GFR (Non-Af Amer) > 60 Glucose 127 H Calcium 8.6 Total Bilirubin 0.3 AST 13 L ALT 24 Alkaline Phosphatase 37 L Total Protein 3.7 L Albumin 1.9 L Triglycerides Impressions: Acute Abdomen Series 06/10/16 17:34 IMPRESSION: There is gaseous distention of multiple small bowel loops most consistent with an ileus pattern. The possibility of a developing small bowel obstruction cannot be completely excluded however. Clinical correlation and followup is recommended. Small Bowel X-Ray 06/11/16 00:00 IMPRESSION: Study was terminated before completion. Multiple air distended bowel loops are again identified. KUB X-Ray 06/11/16 07:00 IMPRESSION: Again there is gaseous distention of multiple small bowel loops which again is most consistent with an ileus. Gas and fecal material is identified throughout the colon. Other findings as noted above Chest X-Ray 06/12/16 06:00 IMPRESSION: STABLE APPEARANCE OF THE CHEST. SUPPORT DEVICES UNCHANGED. Assessment & Plan - Diagnosis (1) Respiratory failure Qualifiers: Chronicity: acute Is this a current diagnosis for this admission?: YesPlan: ps;cpap min vol;rr;fio2 airway pressures suggest sucessful extubation will extubate (2) Hypotension Qualifiers: Hypotension type: other hypotension type Qualified Code(s): I95.89 - Other hypotension Is this a current diagnosis for this admission?: YesPlan: continue vasopressor (3) Small bowel obstruction Is this a current diagnosis for this admission?: YesPlan: per surgery (4) Malnutrition Is this a current diagnosis for this admission?: YesPlan: enteral or parenteral needs Kcal - Time Critical Time spent with patient: 25-34 minutes - 55 min
--- NOTE | 2016-06-12 09:13 | PDOC PROGRESS REPORT ---
Subjective Progress Note for:: 06/12/16 Subjective:: NARENDRA PAPPAS is a 81 year old female with no significant past medical history was admitted to Dr. Hart service when she presented with small bowel obstruction Underwent laparotomy today and small bowel resection for ischemic bowel ; a medical consultation was called Patient to be was somewhat hypotensive on arrival in the ICU, and the CVP reading was low at 3 She was treated with IV fluids Propofol drip and Nigel-Synephrine drip were initiated. Ertapenem 1 g IV piggyback was ordered This morning patient is extremely stable She is still on Nigel-Synephrine drip and propofol drip Selected Entries 06/12/16 06/12/16 06:35 08:00 Temperature 97.6 F Heart Rate ( 92 Monitors) Respiratory 10 L Rate Blood Pressure 118/49 L O2 Sat by Pulse 99 Oximetry Her vital signs are stable and C she is oxygenating adequately on 35% FiO2 Dr. Juli brandt was called, consult to evaluate her for possible extubation Physical Exam Vital Signs: Temp Pulse Resp BP Pulse Ox 97.6 F 79 10 L 118/49 L 99 06/12/16 08:00 06/11/16 15:54 06/12/16 06:35 06/12/16 06:35 06/12/16 06:35 Intake & Output 06/11/16 06/12/16 06/13/16 00:59 00:59 00:59 Intake Total 20421 3368 Output Total 900 4540 230 Balance -900 7142 3138 Weight 50.9 kg 61.7 kg General appearance: PRESENT: no acute distress, other - Pale Head exam: PRESENT: atraumatic, normocephalic Eye exam: PRESENT: conjunctiva pink, EOMI, PERRLA. ABSENT: scleral icterus Neck exam: ABSENT: carotid bruit, JVD, lymphadenopathy, thyromegaly Respiratory exam: PRESENT: clear to auscultation tonya. ABSENT: rales, rhonchi, wheezes Cardiovascular exam: PRESENT: RRR. ABSENT: diastolic murmur, rubs, systolic murmur GI/Abdominal exam: PRESENT: normal bowel sounds, soft. ABSENT: distended, guarding, mass, organolmegaly, rebound, tenderness Rectal exam: PRESENT: deferred Extremities exam: PRESENT: full ROM. ABSENT: calf tenderness, clubbing, pedal edema Skin exam: PRESENT: dry, intact, warm. ABSENT: cyanosis, rash Results Laboratory Results: 06/12/16 05:17 06/12/16 05:17 06/11/16 06/11/16 06/11/16 09:36 09:36 09:36 WBC 15.9 H RBC 5.00 Hgb 15.3 Hct 46.9 MCV 94 MCH 30.6 MCHC 32.6 RDW 14.8 H Plt Count 300 Seg Neutrophils % 87.7 H Lymphocytes % 5.8 L Monocytes % 6.4 Eosinophils % 0.0 Basophils % 0.1 Absolute Neutrophils 13.9 H Absolute Lymphocytes 0.9 Absolute Monocytes 1.0 Absolute Eosinophils 0.0 Absolute Basophils 0.0 Carbonic Acid HCO3/H2CO3 Ratio ABG pH ABG pCO2 ABG pO2 ABG HCO3 ABG O2 Saturation ABG Base Excess FiO2 Sodium 141.0 Potassium 4.3 Chloride 106 Carbon Dioxide 21 L Anion Gap 14 BUN 20 Creatinine 0.61 Est GFR ( Amer) > 60 Est GFR (Non-Af Amer) > 60 Glucose 189 H Calcium 9.7 Total Bilirubin AST ALT Alkaline Phosphatase Total Protein Albumin Triglycerides 67 06/11/16 06/11/16 06/12/16 15:55 15:55 05:17 WBC 5.5 9.9 RBC 4.08 3.55 L Hgb 12.4 D 10.8 L Hct 38.0 32.8 L MCV 93 93 MCH 30.4 30.4 MCHC 32.7 32.9 RDW 14.3 H 14.5 H Plt Count 196 201 Seg Neutrophils % 75.6 77.1 Lymphocytes % 17.5 12.6 L Monocytes % 6.3 10.2 Eosinophils % 0.2 0.0 Basophils % 0.4 0.1 Absolute Neutrophils 4.1 7.7 Absolute Lymphocytes 1.0 1.2 Absolute Monocytes 0.3 1.0 Absolute Eosinophils 0.0 0.0 Absolute Basophils 0.0 0.0 Carbonic Acid HCO3/H2CO3 Ratio ABG pH ABG pCO2 ABG pO2 ABG HCO3 ABG O2 Saturation ABG Base Excess FiO2 Sodium 139.3 Potassium 3.8 Chloride 110 H Carbon Dioxide 19 L Anion Gap 10 BUN 22 H Creatinine 0.62 Est GFR ( Amer) > 60 Est GFR (Non-Af Amer) > 60 Glucose 131 H Calcium 8.4 Total Bilirubin AST ALT Alkaline Phosphatase Total Protein Albumin Triglycerides 06/12/16 06/12/16 05:17 05:32 WBC RBC Hgb Hct MCV MCH MCHC RDW Plt Count Seg Neutrophils % Lymphocytes % Monocytes % Eosinophils % Basophils % Absolute Neutrophils Absolute Lymphocytes Absolute Monocytes Absolute Eosinophils Absolute Basophils Carbonic Acid 1.15 HCO3/H2CO3 Ratio 22:1 ABG pH 7.45 ABG pCO2 38.3 ABG pO2 86.9 ABG HCO3 26.1 H ABG O2 Saturation 97.0 ABG Base Excess 2.1 FiO2 35% Sodium 138.4 Potassium 4.2 Chloride 107 Carbon Dioxide 25 Anion Gap 6 BUN 20 Creatinine 0.55 Est GFR ( Amer) > 60 Est GFR (Non-Af Amer) > 60 Glucose 127 H Calcium 8.6 Total Bilirubin 0.3 AST 13 L ALT 24 Alkaline Phosphatase 37 L Total Protein 3.7 L Albumin 1.9 L Triglycerides EKG Comments: SINUS RHYTHM Impressions: Acute Abdomen Series 06/10/16 17:34 IMPRESSION: There is gaseous distention of multiple small bowel loops most consistent with an ileus pattern. The possibility of a developing small bowel obstruction cannot be completely excluded however. Clinical correlation and followup is recommended. Small Bowel X-Ray 06/11/16 00:00 IMPRESSION: Study was terminated before completion. Multiple air distended bowel loops are again identified. KUB X-Ray 06/11/16 07:00 IMPRESSION: Again there is gaseous distention of multiple small bowel loops which again is most consistent with an ileus. Gas and fecal material is identified throughout the colon. Other findings as noted above Chest X-Ray 06/12/16 06:00 IMPRESSION: STABLE APPEARANCE OF THE CHEST. SUPPORT DEVICES UNCHANGED. Assessment & Plan - Diagnosis (1) Ischemic bowel disease Is this a current diagnosis for this admission?: YesPlan: status post small bowel resection postoperative course appears uncomplicated continue IV fluids; continue ertapenem (2) Hypotension Qualifiers: Qualified Code(s): I95.89 - Other hypotension Is this a current diagnosis for this admission?: YesPlan: Likely to be secondary to early septic shock and or hypovolemia Continue Nigel-Synephrine as needed Continue IV hydration; maintain CVP at 8
--- NOTE | 2016-06-12 09:25 | PDOC PROGRESS REPORT ---
Subjective Progress Note for:: 06/12/16 Subjective:: Patient sedated and intubated Physical Exam Vital Signs: Temp Pulse Resp BP Pulse Ox 97.6 F 79 10 L 118/49 L 99 06/12/16 08:00 06/11/16 15:54 06/12/16 06:35 06/12/16 06:35 06/12/16 06:35 Intake & Output 06/11/16 06/12/16 06/13/16 06:59 06:59 06:59 Intake Total 1421 91253 Output Total 900 4770 Balance 521 8859 Weight 50.9 kg 61.7 kg General appearance: PRESENT: no acute distress Respiratory exam: PRESENT: clear to auscultation tonya GI/Abdominal exam: PRESENT: other - Midline incision dry and intact dressing dry. Distention. Minimally tender Results Laboratory Results: 06/12/16 05:17 06/12/16 05:17 06/11/16 06/11/16 06/11/16 09:36 09:36 09:36 WBC 15.9 H RBC 5.00 Hgb 15.3 Hct 46.9 MCV 94 MCH 30.6 MCHC 32.6 RDW 14.8 H Plt Count 300 Seg Neutrophils % 87.7 H Lymphocytes % 5.8 L Monocytes % 6.4 Eosinophils % 0.0 Basophils % 0.1 Absolute Neutrophils 13.9 H Absolute Lymphocytes 0.9 Absolute Monocytes 1.0 Absolute Eosinophils 0.0 Absolute Basophils 0.0 Carbonic Acid HCO3/H2CO3 Ratio ABG pH ABG pCO2 ABG pO2 ABG HCO3 ABG O2 Saturation ABG Base Excess FiO2 Sodium 141.0 Potassium 4.3 Chloride 106 Carbon Dioxide 21 L Anion Gap 14 BUN 20 Creatinine 0.61 Est GFR ( Amer) > 60 Est GFR (Non-Af Amer) > 60 Glucose 189 H Calcium 9.7 Total Bilirubin AST ALT Alkaline Phosphatase Total Protein Albumin Triglycerides 67 06/11/16 06/11/16 06/12/16 15:55 15:55 05:17 WBC 5.5 9.9 RBC 4.08 3.55 L Hgb 12.4 D 10.8 L Hct 38.0 32.8 L MCV 93 93 MCH 30.4 30.4 MCHC 32.7 32.9 RDW 14.3 H 14.5 H Plt Count 196 201 Seg Neutrophils % 75.6 77.1 Lymphocytes % 17.5 12.6 L Monocytes % 6.3 10.2 Eosinophils % 0.2 0.0 Basophils % 0.4 0.1 Absolute Neutrophils 4.1 7.7 Absolute Lymphocytes 1.0 1.2 Absolute Monocytes 0.3 1.0 Absolute Eosinophils 0.0 0.0 Absolute Basophils 0.0 0.0 Carbonic Acid HCO3/H2CO3 Ratio ABG pH ABG pCO2 ABG pO2 ABG HCO3 ABG O2 Saturation ABG Base Excess FiO2 Sodium 139.3 Potassium 3.8 Chloride 110 H Carbon Dioxide 19 L Anion Gap 10 BUN 22 H Creatinine 0.62 Est GFR ( Amer) > 60 Est GFR (Non-Af Amer) > 60 Glucose 131 H Calcium 8.4 Total Bilirubin AST ALT Alkaline Phosphatase Total Protein Albumin Triglycerides 06/12/16 06/12/16 05:17 05:32 WBC RBC Hgb Hct MCV MCH MCHC RDW Plt Count Seg Neutrophils % Lymphocytes % Monocytes % Eosinophils % Basophils % Absolute Neutrophils Absolute Lymphocytes Absolute Monocytes Absolute Eosinophils Absolute Basophils Carbonic Acid 1.15 HCO3/H2CO3 Ratio 22:1 ABG pH 7.45 ABG pCO2 38.3 ABG pO2 86.9 ABG HCO3 26.1 H ABG O2 Saturation 97.0 ABG Base Excess 2.1 FiO2 35% Sodium 138.4 Potassium 4.2 Chloride 107 Carbon Dioxide 25 Anion Gap 6 BUN 20 Creatinine 0.55 Est GFR ( Amer) > 60 Est GFR (Non-Af Amer) > 60 Glucose 127 H Calcium 8.6 Total Bilirubin 0.3 AST 13 L ALT 24 Alkaline Phosphatase 37 L Total Protein 3.7 L Albumin 1.9 L Triglycerides Impressions: Acute Abdomen Series 06/10/16 17:34 IMPRESSION: There is gaseous distention of multiple small bowel loops most consistent with an ileus pattern. The possibility of a developing small bowel obstruction cannot be completely excluded however. Clinical correlation and followup is recommended. Small Bowel X-Ray 06/11/16 00:00 IMPRESSION: Study was terminated before completion. Multiple air distended bowel loops are again identified. KUB X-Ray 06/11/16 07:00 IMPRESSION: Again there is gaseous distention of multiple small bowel loops which again is most consistent with an ileus. Gas and fecal material is identified throughout the colon. Other findings as noted above Chest X-Ray 06/12/16 06:00 IMPRESSION: STABLE APPEARANCE OF THE CHEST. SUPPORT DEVICES UNCHANGED. Assessment & Plan - Diagnosis (1) Small bowel obstruction Is this a current diagnosis for this admission?: Yes (2) Ischemic bowel disease Is this a current diagnosis for this admission?: YesPlan: 1. Patient is one day status post motor laparotomy, resection is 85 cm of ileum due to infarcted bowel secondary to closed loop obstruction, doing well, hemodynamically stable, on low dose Nigel-Synephrine to direct to diprivan drip. Urine output adequate. Labs have normalized. Hemoglobin diminished due to hemodilution 2. Plan to get weaning parameters and anticipate extubation today
[2016-06-12] MEDS: FAMOTIDINE INJ/PF 20 MG/2 ML SDV IV SCH ×2 (09:45→21:04)
[2016-06-12] MEDS ORDERED: MORPHINE SULFATE 10 MG/ML INJ IV ONE (13:00)
[2016-06-12] MEDS ORDERED: ENOXAPARIN SODIUM INJ 40 MG/0.4 ML DISP.SYRIN SUBCUT ONE (14:00)
[2016-06-12 15:17] LABS: APPEARANCE,URINE CLEAR; BILIRUBIN,URINE NEGATIVE (NEGATIVE); GLUCOSE, URINE NEGATIVE (NEGATIVE); KETONES,URINE NEGATIVE (NEGATIVE); LEUKOCYTE ESTERASE,URINE NEGATIVE (NEGATIVE); NITRITE,URINE NEGATIVE (NEGATIVE); PROTEIN,URINE NEGATIVE (NEGATIVE); URINE SPECIFIC GRAVITY 1.015; UROBILINOGEN,URINE NEGATIVE mg/dL (<2.0)
[2016-06-12] MEDS: ERTAPENEM SODIUM 1 GM in NORMAL SALINE 50 ML IV SCH (17:33)
[2016-06-13] MEDS: MORPHINE SULFATE 10 MG/ML INJ IV PRN ×2 (01:32→06:56)
[2016-06-13] MEDS: RINGERS SOLUTION,LACTATED 1,000 ML IV PRN ×2 (05:09→11:58)
[2016-06-13 07:04] LABS: ARTERIAL BLOOD O2 SATURATION 91.2 % (94-98)
[2016-06-13 07:06] LABS: ABSOLUTE LYMPHOCYTES (AUTO) 1.5 10^3/uL (0.5-4.7); ABSOLUTE MONOCYTES (AUTO) 0.7 10^3/uL (0.1-1.4); ABSOLUTE NEUT (AUTO) 4.8 10^3/uL (1.7-8.2); BASOPHILS % (AUTO) 0.2 % (0-2); EOSINOPHILS % (AUTO) 0.7 % (0-6); HEMOGLOBIN 8.8 g/dL (12.0-15.5); HGB HCT DIFFERENCE 0.4; LYMPHOCYTES % (AUTO) 21.1 % (13-45); MEAN CORPUSCULAR HEMOGLOBIN 31.4 pg (27.0-33.4); MEAN CORPUSCULAR VOLUME 92 fl (80-97); MONOCYTES % (AUTO) 9.8 % (3-13); RED BLOOD COUNT 2.81 10^6/uL (3.72-5.28); RED CELL DISTRIBUTION WIDTH 14.6 % (11.5-14.0); SEGMENTED NEUTROPHILS % (AUTO) 68.2 % (42-78)
[2016-06-13] MEDS: ENOXAPARIN SODIUM INJ 40 MG/0.4 ML DISP.SYRIN SUBCUT SCH (07:30)
[2016-06-13 07:35] LABS: ALANINE AMINOTRANSFERASE 30 U/L (9-52); ALBUMIN 1.9 g/dL (3.5-5.0); ALKALINE PHOSPHATASE 44 U/L (38-126); ANION GAP 5 (5-19); ASPARTATE AMINO TRANSFERASE 16 U/L (14-36); BILIRUBIN,DIRECT 0.2 mg/dL (0.0-0.4); BILIRUBIN,TOTAL 0.5 mg/dL (0.2-1.3); BLOOD UREA NITROGEN 13 mg/dL (7-20); CALCIUM 8.8 mg/dL (8.4-10.2); CARBON DIOXIDE 29 mmol/L (22-30); CHLORIDE 104 mmol/L (98-107); CREATININE RESULT 0.48 mg/dL (0.52-1.25); GLUCOSE 77 mg/dL (75-110); MAGNESIUM 1.9 mg/dL (1.6-2.3); PHOSPHORUS 1.4 mg/dL (2.5-4.5); POTASSIUM 3.6 mmol/L (3.6-5.0); SODIUM 138.1 mmol/L (137-145); TOTAL PROTEIN 3.8 g/dL (6.3-8.2)
[2016-06-13] MEDS ORDERED: MORPHINE SULFATE 10 MG/ML INJ IV PRN ×2 (09:18→09:20)
[2016-06-13] MEDS: FAMOTIDINE INJ/PF 20 MG/2 ML SDV IV SCH ×2 (10:19→22:13)
--- NOTE | 2016-06-13 11:43 | PDOC PROGRESS REPORT ---
Subjective Progress Note for:: 06/13/16 Subjective:: Reason for visit: Follow-up ischemic bowel, septic shock Hospital course: Per consult note "NARENDRA PAPPAS is a 81 year old female with no significant past medical history was admitted to Dr. Hart service when she presented with small bowel obstruction Underwent laparotomy today and small bowel resection for ischemic bowel ; a medical consultation was called Patient to be was somewhat hypotensive on arrival in the ICU, and the CVP reading was low at 3 She was treated with IV fluids Propofol drip and Nigel-Synephrine drip were initiated. Ertapenem 1 g IV piggyback was ordered This morning patient is extremely stable She is still on Nigel-Synephrine drip and propofol drip" Later in the day yesterday she was successfully extubated and weaned off of both the Nigel-Synephrine and propofol drips. Subjective: I find her resting comfortably in bed with only mild epigastric pain she describes as sharp, stabbing and worsened with deep inspiration or cough, alleviated with mild compression during cough, position and pain medicine and without associated symptoms of nausea, vomiting, diarrhea. Otherwise she feels well all things considered. She denies chest pain, palpitations, fever, chills. ROS: per HPI plus a total of 10 systems reviewed, pertinent positives and negatives noted above, remaining systems negative. Physical Exam Vital Signs: Temp Pulse Resp BP Pulse Ox 98.1 F 78 13 113/47 L 100 06/13/16 08:00 06/13/16 08:00 06/13/16 10:20 06/13/16 10:20 06/13/16 10:20 Intake & Output 06/12/16 06/13/16 06/14/16 06:59 06:59 06:59 Intake Total 32086 3158 Output Total 4770 1900 75 Balance 8859 1258 -75 Weight 61.7 kg 66 kg EXAM GENERAL: NAD; well developed, well nourished; no obese; alert and oriented to person, place, time, situation HEENT: normocephalic, atraumatic; no conjunctival injection, no scleral icterus ; oral mucosa moist; NG tube in place and clamped RESPIRATORY: no accessory muscle use, no increased WOB, good air entry bilaterally; no wheezes, rales, rhonchi; bibasilar inspiratory crackles CARDIO: no JVD; RRR; no systolic murmur; no tachycardia GI: soft; nondistended; diminished, high-pitched tinkling bowel sounds left lower quadrant; abdominal binder in place; no rebound, rigidity, guarding; appropriately tender to palpation, wound clean dry and intact VASCULAR: no pallor; 2+ radial, DP pulse; normal capillary refill EXTREMITIES: no calf tender; no palpable cords in calf; no clubbing, cyanosis , pedal edema PSYCH: normal affect, normal mood SKIN: warm; moist; no petechiae; no telengectasias; no jaundice; no rash Results Laboratory Results: 06/13/16 06:50 06/13/16 06:50 06/12/16 06/13/16 06/13/16 15:00 06:50 06:50 WBC 7.0 RBC 2.81 L Hgb 8.8 L Hct 26.0 L MCV 92 MCH 31.4 MCHC 34.0 RDW 14.6 H Plt Count 148 L Seg Neutrophils % 68.2 Lymphocytes % 21.1 Monocytes % 9.8 Eosinophils % 0.7 Basophils % 0.2 Absolute Neutrophils 4.8 Absolute Lymphocytes 1.5 Absolute Monocytes 0.7 Absolute Eosinophils 0.0 Absolute Basophils 0.0 Carbonic Acid 1.49 H HCO3/H2CO3 Ratio 20:1 ABG pH 7.41 ABG pCO2 49.4 H ABG pO2 60.8 L ABG HCO3 30.5 H ABG O2 Saturation 91.2 L ABG Base Excess 5.0 FiO2 2L Sodium Potassium Chloride Carbon Dioxide Anion Gap BUN Creatinine Est GFR ( Amer) Est GFR (Non-Af Amer) Glucose Calcium Phosphorus Magnesium Total Bilirubin AST ALT Alkaline Phosphatase Total Protein Albumin Urine Color YELLOW Urine Appearance CLEAR Urine pH 5.0 Ur Specific [place] 1.015 Urine Protein NEGATIVE Urine Glucose (UA) NEGATIVE Urine Ketones NEGATIVE Urine Blood NEGATIVE Urine Nitrite NEGATIVE Ur Leukocyte Esterase NEGATIVE Urine WBC (Auto) 1 Urine RBC (Auto) 0 06/13/16 06:50 WBC RBC Hgb Hct MCV MCH MCHC RDW Plt Count Seg Neutrophils % Lymphocytes % Monocytes % Eosinophils % Basophils % Absolute Neutrophils Absolute Lymphocytes Absolute Monocytes Absolute Eosinophils Absolute Basophils Carbonic Acid HCO3/H2CO3 Ratio ABG pH ABG pCO2 ABG pO2 ABG HCO3 ABG O2 Saturation ABG Base Excess FiO2 Sodium 138.1 Potassium 3.6 Chloride 104 Carbon Dioxide 29 Anion Gap 5 BUN 13 Creatinine 0.48 L Est GFR ( Amer) > 60 Est GFR (Non-Af Amer) > 60 Glucose 77 Calcium 8.8 Phosphorus 1.4 L Magnesium 1.9 Total Bilirubin 0.5 AST 16 ALT 30 Alkaline Phosphatase 44 Total Protein 3.8 L Albumin 1.9 L Urine Color Urine Appearance Urine pH Ur Specific [place] Urine Protein Urine Glucose (UA) Urine Ketones Urine Blood Urine Nitrite Ur Leukocyte Esterase Urine WBC (Auto) Urine RBC (Auto) 06/10/16 23:36 Clean Catch Midstream Urine Culture - Final Escherichia Coli Impressions: Acute Abdomen Series 06/10/16 17:34 IMPRESSION: There is gaseous distention of multiple small bowel loops most consistent with an ileus pattern. The possibility of a developing small bowel obstruction cannot be completely excluded however. Clinical correlation and followup is recommended. Small Bowel X-Ray 06/11/16 00:00 IMPRESSION: Study was terminated before completion. Multiple air distended bowel loops are again identified. KUB X-Ray 06/11/16 07:00 IMPRESSION: Again there is gaseous distention of multiple small bowel loops which again is most consistent with an ileus. Gas and fecal material is identified throughout the colon. Other findings as noted above Chest X-Ray 06/13/16 06:00 IMPRESSION: New consolidation in the superior segment right lower lobe worrisome for pneumonia. Stable bibasilar atelectasis NG tube, left subclavian central line in good positioning Status: Imported from PACS Assessment & Plan - Diagnosis (1) Ischemic bowel disease Is this a current diagnosis for this admission?: YesPlan: Status post exploratory laparotomy with resection. Awaiting return of bowel function. Further recommendations per surgery. Further surgery regarding diet. (2) Respiratory failure Qualifiers: Chronicity: acute Is this a current diagnosis for this admission?: YesPlan: Successfully extubated. Continue to wean supplemental O2. Continue incentive spirometer. (3) Small bowel obstruction Is this a current diagnosis for this admission?: YesPlan: Secondary to ischemic bowel. Management as above. (4) Septic shock Is this a current diagnosis for this admission?: YesPlan: As evidenced by leukocytosis, tachycardia and a source of ischemic bowel. Resolved. Continue antibiotics. (5) Normocytic normochromic anemia Is this a current diagnosis for this admission?: YesPlan: Likely related to acute blood loss from the ischemic bowel. Continue to monitor H&H. - Time Time Spent with patient: 25-34 minutes Medications reviewed and adjusted accordingly: Yes Anticipated discharge: Home Within: within 72 hours - Plan Summary Plan Summary: Stable for transfer to the floor.
--- NOTE | 2016-06-13 18:28 | PROGRESS NOTE E ---
Progress Note NAME: NARENDRA PAPPAS : 1935 AGE: 81Y DATE: 06/13/2016 ROOM: 403 SUBJECTIVE: Patient is sitting out of bed in the chair and is without complaints. OBJECTIVE: VITAL SIGNS: Blood pressure 110/39. Temperature 98.1. Pulse 86. Respirations 11. Saturation 92% on room air. LUNGS: Clear anteriorly bilaterally. CARDIOVASCULAR: *------* pulse regular. ABDOMEN: Soft. Bowel sounds are present, but minimally diminished. Patient has not had any flatus or BM at this time. ASSESSMENT: STATUS POST POSTOP DAY #2, STATUS POST LYSIS OF ADHESIONS AND SEGMENTAL SMALL BOWEL RESECTION FOR SMALL BOWEL OBSTRUCTION WITH ISCHEMIC BOWEL. PLAN: Will consider transferring the patient out of the unit in the a.m. and will start clear liquid diet once the bowel function has returned. DICTATING PHYSICIAN: DAREN DOUGLAS M.D. [id number] PHY#: [id number] ID: [id number] JOB#: [id number] ACCT: [id number] cc: >
[2016-06-13] MEDS: ERTAPENEM SODIUM 1 GM in NORMAL SALINE 50 ML IV SCH (18:38)
[2016-06-14] MEDS: RINGERS SOLUTION,LACTATED 1,000 ML IV PRN ×2 (00:37→20:11)
[2016-06-14 05:43] LABS: HEMATOCRIT 23.5 % (36.0-47.0); HGB HCT DIFFERENCE -0.1; MEAN CORPUSCULAR HEMOGLOBIN 30.5 pg (27.0-33.4); MEAN CORPUSCULAR HGB CONC 33.2 g/dL (32.0-36.0); MEAN CORPUSCULAR VOLUME 92 fl (80-97); RED BLOOD COUNT 2.56 10^6/uL (3.72-5.28); RED CELL DISTRIBUTION WIDTH 13.7 % (11.5-14.0); WHITE BLOOD COUNT 5.9 10^3/uL (4.0-10.5)
[2016-06-14 05:48] LABS: HEMOGLOBIN 7.8 g/dL (12.0-15.5)
[2016-06-14] MEDS ORDERED: NORMAL SALINE 250 ML IV PRN ×2 (07:38)
[2016-06-14] MEDS ORDERED: OXYCODONE-ACETAMINOPHEN 5-325 MG TABLET PO PRN (08:58)
[2016-06-14] MEDS: ENOXAPARIN SODIUM INJ 40 MG/0.4 ML DISP.SYRIN SUBCUT SCH (10:38)
[2016-06-14] MEDS: FAMOTIDINE INJ/PF 20 MG/2 ML SDV IV SCH ×2 (10:38→22:51)
--- NOTE | 2016-06-14 17:10 | PDOC PROGRESS REPORT ---
Subjective Progress Note for:: 06/14/16 Subjective:: Reason for visit: Follow-up ischemic bowel, septic shock Hospital course: Per consult note "NARENDRA PAPPAS is a 81 year old female with no significant past medical history was admitted to Dr. Hart service when she presented with small bowel obstruction Underwent laparotomy today and small bowel resection for ischemic bowel ; a medical consultation was called Patient to be was somewhat hypotensive on arrival in the ICU, and the CVP reading was low at 3 She was treated with IV fluids Propofol drip and Nigel-Synephrine drip were initiated. Ertapenem 1 g IV piggyback was ordered This morning patient is extremely stable She is still on Nigel-Synephrine drip and propofol drip" Later in the day 06/12/16 she was successfully extubated and weaned off of both the Nigel-Synephrine and propofol drips. Subjective: She denies chest pain, palpitations, fever, chills. Still no bowel movement but she is having bowel sounds and may have passed some gas. ROS: per HPI plus a total of 10 systems reviewed, pertinent positives and negatives noted above, remaining systems negative. Physical Exam Vital Signs: Temp Pulse Resp BP Pulse Ox 99.0 F 80 17 135/49 H 93 06/14/16 16:07 06/14/16 16:07 06/14/16 16:07 06/14/16 16:07 06/14/16 16:07 Intake & Output 06/13/16 06/14/16 06/15/16 06:59 06:59 06:59 Intake Total 3158 1710 1270 Output Total 1900 1975 1000 Balance 1258 -265 270 Weight 66 kg 59.4 kg EXAM GENERAL: NAD; well developed, well nourished; no obese; alert and oriented to person, place, time, situation HEENT: normocephalic, atraumatic; no conjunctival injection, no scleral icterus ; oral mucosa moist; NG tube in place and clamped RESPIRATORY: no accessory muscle use, no increased WOB, good air entry bilaterally; no wheezes, rales, rhonchi; bibasilar inspiratory crackles CARDIO: no JVD; RRR; no systolic murmur; no tachycardia GI: soft; nondistended; diminished, lower rumbling bowel sounds; abdominal binder in place; no rebound, rigidity, guarding; appropriately tender to palpation, wound clean dry and intact VASCULAR: no pallor; 2+ radial, DP pulse; normal capillary refill EXTREMITIES: no calf tender; no palpable cords in calf; no clubbing, cyanosis , pedal edema PSYCH: normal affect, normal mood SKIN: warm; moist; no petechiae; no telengectasias; no jaundice; no rash Results Laboratory Results: 06/14/16 04:55 06/13/16 06:50 06/14/16 06/14/16 04:55 08:12 WBC 5.9 RBC 2.56 L Hgb 7.8 L Hct 23.5 L MCV 92 MCH 30.5 MCHC 33.2 RDW 13.7 Plt Count 180 Blood Type O POSITIVE Antibody Screen NEGATIVE Hemoglobin continues to trend down Impressions: Acute Abdomen Series 06/10/16 17:34 IMPRESSION: There is gaseous distention of multiple small bowel loops most consistent with an ileus pattern. The possibility of a developing small bowel obstruction cannot be completely excluded however. Clinical correlation and followup is recommended. Small Bowel X-Ray 06/11/16 00:00 IMPRESSION: Study was terminated before completion. Multiple air distended bowel loops are again identified. KUB X-Ray 06/11/16 07:00 IMPRESSION: Again there is gaseous distention of multiple small bowel loops which again is most consistent with an ileus. Gas and fecal material is identified throughout the colon. Other findings as noted above Chest X-Ray 06/13/16 06:00 IMPRESSION: New consolidation in the superior segment right lower lobe worrisome for pneumonia. Stable bibasilar atelectasis NG tube, left subclavian central line in good positioning Assessment & Plan - Diagnosis (1) Ischemic bowel disease Is this a current diagnosis for this admission?: YesPlan: Status post exploratory laparotomy with resection. Awaiting return of bowel function. Further recommendations per surgery. Further surgery regarding diet. (2) Respiratory failure Qualifiers: Chronicity: acute Is this a current diagnosis for this admission?: YesPlan: Successfully extubated. weaned off supplemental O2. Continue incentive spirometer. (3) Normocytic normochromic anemia Is this a current diagnosis for this admission?: YesPlan: Likely related to acute blood loss from the ischemic bowel. Understanding the ischemia was likely mechanical in nature, I still feel compelled to transfuse with a hemoglobin dropping below 8 in an effort to avoid perfusion ischemia in an 81-year-old whose bone marrow is unlikely to rapidly replete lost red blood cells. Risk and benefits of transfusion were described to the patient and she is agreeable to transfusion at this time. We'll transfuse 2 units of packed red blood cells. Discussed with general surgery. Continue to monitor H&H. (4) Small bowel obstruction Is this a current diagnosis for this admission?: Yes (5) Septic shock Is this a current diagnosis for this admission?: Yes - Time Time Spent with patient: 25-34 minutes
[2016-06-14] MEDS: ERTAPENEM SODIUM 1 GM in NORMAL SALINE 50 ML IV SCH (20:06)
[2016-06-14 23:09] LABS: HEMATOCRIT 28.7 % (36.0-47.0); HEMOGLOBIN 9.7 g/dL (12.0-15.5); HGB HCT DIFFERENCE 0.4; MEAN CORPUSCULAR HEMOGLOBIN 30.3 pg (27.0-33.4); MEAN CORPUSCULAR HGB CONC 33.8 g/dL (32.0-36.0); MEAN CORPUSCULAR VOLUME 90 fl (80-97); RED CELL DISTRIBUTION WIDTH 14.1 % (11.5-14.0); WHITE BLOOD COUNT 5.9 10^3/uL (4.0-10.5)
--- NOTE | 2016-06-15 00:23 | CONSULTATION REPORT E ---
Consultation Report NAME: NARENDRA PAPPAS : 1935 AGE: 81Y DATE: 06/14/2016 403 A TO: DAREN DOUGLAS M.D. FROM: LIAM FERNÁNDEZ M.D. Requesting Physician SUBJECTIVE: The patient is lying in bed comfortably without complaints. He is tolerating clear liquids well. OBJECTIVE: VITAL SIGNS: Blood pressure 152/49, temperature 98.1, pulse 81, respirations 18, saturation 95%. LUNGS: Clear bilaterally with good entry. ABDOMEN: Soft, bowel sounds are present, but still mildly hypoactive, nontender. The incision is clean, dry and intact. ASSESSMENT: POSTOPERATIVE DAY 3, STATUS POST LYSIS OF ADHESIONS AND SEGMENTAL SMALL BOWEL RESECTION FOR ISCHEMIA/SMALL BOWEL OBSTRUCTION. PLAN: We will resume the patient's diet in the a.m. provided she has more bowel function. DICTATING PHYSICIAN: DAREN DOUGLAS M.D. [id number] PHY#: [id number] ID: [id number] JOB#: [id number] ACCT: [id number] cc:DAREN DOUGLAS M.D. >
[2016-06-15] MEDS: RINGERS SOLUTION,LACTATED 1,000 ML IV PRN (03:21)
[2016-06-15 04:28] LABS: APPEARANCE,URINE CLEAR; BILIRUBIN,URINE NEGATIVE (NEGATIVE); GLUCOSE, URINE NEGATIVE (NEGATIVE); KETONES,URINE TRACE mg/dL (NEGATIVE); LEUKOCYTE ESTERASE,URINE NEGATIVE (NEGATIVE); NITRITE,URINE NEGATIVE (NEGATIVE); PROTEIN,URINE NEGATIVE (NEGATIVE); URINE SPECIFIC GRAVITY 1.008; UROBILINOGEN,URINE NEGATIVE mg/dL (<2.0)
[2016-06-15 06:17] LABS: ABSOLUTE EOSINOPHILS # (AUTO) 0.3 10^3/uL (0.0-0.6); ABSOLUTE LYMPHOCYTES (AUTO) 1.2 10^3/uL (0.5-4.7); ABSOLUTE MONOCYTES (AUTO) 0.7 10^3/uL (0.1-1.4); ABSOLUTE NEUT (AUTO) 2.9 10^3/uL (1.7-8.2); BASOPHILS % (AUTO) 0.6 % (0-2); EOSINOPHILS % (AUTO) 6.2 % (0-6); HEMATOCRIT 28.8 % (36.0-47.0); HEMOGLOBIN 9.9 g/dL (12.0-15.5); HGB HCT DIFFERENCE 0.9; LYMPHOCYTES % (AUTO) 23.4 % (13-45); MEAN CORPUSCULAR HEMOGLOBIN 30.8 pg (27.0-33.4); MEAN CORPUSCULAR HGB CONC 34.2 g/dL (32.0-36.0); MEAN CORPUSCULAR VOLUME 90 fl (80-97); MONOCYTES % (AUTO) 13.2 % (3-13); RED CELL DISTRIBUTION WIDTH 14.1 % (11.5-14.0); SEGMENTED NEUTROPHILS % (AUTO) 56.6 % (42-78); WHITE BLOOD COUNT 5.1 10^3/uL (4.0-10.5)
--- NOTE | 2016-06-15 09:05 | PDOC PROGRESS REPORT ---
Subjective Progress Note for:: 06/15/16 Subjective:: Feels well. Tolerating clear liquids. Hungry. Passing gas. Physical Exam Vital Signs: Temp Pulse Resp BP Pulse Ox 98.4 F 62 15 109/49 L 95 06/15/16 00:06 06/15/16 00:06 06/15/16 00:06 06/15/16 00:06 06/15/16 00:06 Intake & Output 06/14/16 06/15/16 06/16/16 06:59 06:59 06:59 Intake Total 1810 3424 Output Total 2675 1500 Balance -865 1924 Weight 59 kg 59 kg General appearance: PRESENT: no acute distress, cooperative Respiratory exam: PRESENT: clear to auscultation tonya Cardiovascular exam: PRESENT: RRR GI/Abdominal exam: PRESENT: other - Soft, nondistended, minimal tenderness. Wound clean dry and intact. Active bowel sounds. Results Laboratory Results: 06/15/16 05:45 06/13/16 06:50 06/14/16 06/14/16 06/15/16 08:12 22:55 04:00 WBC 5.9 RBC 3.20 L Hgb 9.7 L Hct 28.7 L MCV 90 MCH 30.3 MCHC 33.8 RDW 14.1 H Plt Count 180 Seg Neutrophils % Lymphocytes % Monocytes % Eosinophils % Basophils % Absolute Neutrophils Absolute Lymphocytes Absolute Monocytes Absolute Eosinophils Absolute Basophils Urine Color YELLOW Urine Appearance CLEAR Urine pH 6.0 Ur Specific [place] 1.008 Urine Protein NEGATIVE Urine Glucose (UA) NEGATIVE Urine Ketones TRACE H Urine Blood SMALL H Urine Nitrite NEGATIVE Ur Leukocyte Esterase NEGATIVE Urine WBC (Auto) 3 Urine RBC (Auto) 10 Blood Type O POSITIVE Antibody Screen NEGATIVE 06/15/16 05:45 WBC 5.1 RBC 3.20 L Hgb 9.9 L Hct 28.8 L MCV 90 MCH 30.8 MCHC 34.2 RDW 14.1 H Plt Count 184 Seg Neutrophils % 56.6 Lymphocytes % 23.4 Monocytes % 13.2 H Eosinophils % 6.2 H Basophils % 0.6 Absolute Neutrophils 2.9 Absolute Lymphocytes 1.2 Absolute Monocytes 0.7 Absolute Eosinophils 0.3 Absolute Basophils 0.0 Urine Color Urine Appearance Urine pH Ur Specific [place] Urine Protein Urine Glucose (UA) Urine Ketones Urine Blood Urine Nitrite Ur Leukocyte Esterase Urine WBC (Auto) Urine RBC (Auto) Blood Type Antibody Screen Impressions: Acute Abdomen Series 06/10/16 17:34 IMPRESSION: There is gaseous distention of multiple small bowel loops most consistent with an ileus pattern. The possibility of a developing small bowel obstruction cannot be completely excluded however. Clinical correlation and followup is recommended. Small Bowel X-Ray 06/11/16 00:00 IMPRESSION: Study was terminated before completion. Multiple air distended bowel loops are again identified. KUB X-Ray 06/11/16 07:00 IMPRESSION: Again there is gaseous distention of multiple small bowel loops which again is most consistent with an ileus. Gas and fecal material is identified throughout the colon. Other findings as noted above Chest X-Ray 06/13/16 06:00 IMPRESSION: New consolidation in the superior segment right lower lobe worrisome for pneumonia. Stable bibasilar atelectasis NG tube, left subclavian central line in good positioning Assessment & Plan - Diagnosis (1) Small bowel obstruction Is this a current diagnosis for this admission?: YesPlan: Status post exporter laparotomy with small bowel resection. Patient looks very good. Tolerating clears. Will advance her diet. Possibly discharge the patient home in the next couple of days.
[2016-06-15] MEDS ORDERED: POTASSIUM PHOS,M-BASIC-D-BASIC 30 MMOL in NORMAL SALINE 500 ML IV ONE (10:00)
[2016-06-15] MEDS: ENOXAPARIN SODIUM INJ 40 MG/0.4 ML DISP.SYRIN SUBCUT SCH (10:15)
[2016-06-15] MEDS: FAMOTIDINE INJ/PF 20 MG/2 ML SDV IV SCH ×2 (10:16→21:24)
--- NOTE | 2016-06-15 14:50 | PDOC PROGRESS REPORT ---
Subjective Progress Note for:: 06/15/16 Subjective:: Reason for visit: Follow-up ischemic bowel, septic shock Hospital course: Per consult note "NARENDRA PAPPAS is a 81 year old female with no significant past medical history was admitted to Dr. Hart service when she presented with small bowel obstruction Underwent laparotomy today and small bowel resection for ischemic bowel ; a medical consultation was called Patient to be was somewhat hypotensive on arrival in the ICU, and the CVP reading was low at 3 She was treated with IV fluids Propofol drip and Nigel-Synephrine drip were initiated. Ertapenem 1 g IV piggyback was ordered This morning patient is extremely stable She is still on Nigel-Synephrine drip and propofol drip" Later in the day 06/12/16 she was successfully extubated and weaned off of both the Nigel-Synephrine and propofol drips. Subjective: She denies chest pain, palpitations, fever, chills. Now passing gas and has bowel sounds but no bowel movement as yet. She is tolerating her clear liquid diet without difficulty. ROS: per HPI plus a total of 10 systems reviewed, pertinent positives and negatives noted above, remaining systems negative. Physical Exam Vital Signs: Temp Pulse Resp BP Pulse Ox 97.5 F 65 14 166/49 H 95 06/15/16 12:32 06/15/16 12:32 06/15/16 12:32 06/15/16 12:32 06/15/16 12:32 Intake & Output 06/14/16 06/15/16 06/16/16 06:59 06:59 06:59 Intake Total 1810 3424 Output Total 2675 1500 Balance -865 1924 Weight 59 kg 59 kg EXAM GENERAL: NAD; well developed, well nourished; no obese; alert and oriented to person, place, time, situation HEENT: normocephalic, atraumatic; no conjunctival injection, no scleral icterus ; oral mucosa moist; RESPIRATORY: no accessory muscle use, no increased WOB, good air entry bilaterally; no wheezes, rales, rhonchi; bibasilar inspiratory crackles CARDIO: no JVD; RRR; no systolic murmur; no tachycardia GI: soft; nondistended; diminished, lower rumbling bowel sounds; abdominal binder in place; no rebound, rigidity, guarding; appropriately tender to palpation, wound clean dry and intact VASCULAR: no pallor; 2+ radial, DP pulse; normal capillary refill EXTREMITIES: no calf tender; no palpable cords in calf; no clubbing, cyanosis , pedal edema PSYCH: normal affect, normal mood SKIN: warm; moist; no petechiae; no telengectasias; no jaundice; no rash Results Laboratory Results: 06/15/16 05:45 06/13/16 06:50 06/14/16 06/14/16 06/15/16 08:12 22:55 04:00 WBC 5.9 RBC 3.20 L Hgb 9.7 L Hct 28.7 L MCV 90 MCH 30.3 MCHC 33.8 RDW 14.1 H Plt Count 180 Seg Neutrophils % Lymphocytes % Monocytes % Eosinophils % Basophils % Absolute Neutrophils Absolute Lymphocytes Absolute Monocytes Absolute Eosinophils Absolute Basophils Urine Color YELLOW Urine Appearance CLEAR Urine pH 6.0 Ur Specific [place] 1.008 Urine Protein NEGATIVE Urine Glucose (UA) NEGATIVE Urine Ketones TRACE H Urine Blood SMALL H Urine Nitrite NEGATIVE Ur Leukocyte Esterase NEGATIVE Urine WBC (Auto) 3 Urine RBC (Auto) 10 Blood Type O POSITIVE Antibody Screen NEGATIVE 06/15/16 05:45 WBC 5.1 RBC 3.20 L Hgb 9.9 L Hct 28.8 L MCV 90 MCH 30.8 MCHC 34.2 RDW 14.1 H Plt Count 184 Seg Neutrophils % 56.6 Lymphocytes % 23.4 Monocytes % 13.2 H Eosinophils % 6.2 H Basophils % 0.6 Absolute Neutrophils 2.9 Absolute Lymphocytes 1.2 Absolute Monocytes 0.7 Absolute Eosinophils 0.3 Absolute Basophils 0.0 Urine Color Urine Appearance Urine pH Ur Specific [place] Urine Protein Urine Glucose (UA) Urine Ketones Urine Blood Urine Nitrite Ur Leukocyte Esterase Urine WBC (Auto) Urine RBC (Auto) Blood Type Antibody Screen Impressions: Acute Abdomen Series 06/10/16 17:34 IMPRESSION: There is gaseous distention of multiple small bowel loops most consistent with an ileus pattern. The possibility of a developing small bowel obstruction cannot be completely excluded however. Clinical correlation and followup is recommended. Small Bowel X-Ray 06/11/16 00:00 IMPRESSION: Study was terminated before completion. Multiple air distended bowel loops are again identified. KUB X-Ray 06/11/16 07:00 IMPRESSION: Again there is gaseous distention of multiple small bowel loops which again is most consistent with an ileus. Gas and fecal material is identified throughout the colon. Other findings as noted above Chest X-Ray 06/13/16 06:00 IMPRESSION: New consolidation in the superior segment right lower lobe worrisome for pneumonia. Stable bibasilar atelectasis NG tube, left subclavian central line in good positioning Assessment & Plan - Diagnosis (1) Ischemic bowel disease Is this a current diagnosis for this admission?: YesPlan: Status post exploratory laparotomy with resection. Awaiting return of bowel function. Further recommendations per surgery. Defer surgery regarding diet. (2) Respiratory failure Qualifiers: Chronicity: acute Is this a current diagnosis for this admission?: YesPlan: Resolved. Successfully extubated. weaned off supplemental O2. Continue incentive spirometer. (3) Normocytic normochromic anemia Is this a current diagnosis for this admission?: YesPlan: Likely related to acute blood loss from the ischemic bowel. Understanding the ischemia was likely mechanical in nature, I still feel compelled to transfuse with a hemoglobin dropping below 8 in an effort to avoid perfusion ischemia in an 81-year-old whose bone marrow is unlikely to rapidly replete lost red blood cells. Risk and benefits of transfusion were described to the patient and she is agreeable to transfusion at this time. We'll transfuse 2 units of packed red blood cells. Discussed with general surgery. Tolerated transfusion without difficulty and appropriate response in her hemoglobin. Continue to monitor H&H. (4) Small bowel obstruction Is this a current diagnosis for this admission?: Yes (5) Septic shock Is this a current diagnosis for this admission?: Yes - Time Time Spent with patient: 15-24 minutes - Plan Summary Plan Summary: Sounds like surgery is going to advance her diet today and can possibly discharge home in the morning.
[2016-06-16 07:25] LABS: HEMATOCRIT 30.9 % (36.0-47.0); HEMOGLOBIN 10.6 g/dL (12.0-15.5); HGB HCT DIFFERENCE 0.9; MEAN CORPUSCULAR HEMOGLOBIN 30.7 pg (27.0-33.4); MEAN CORPUSCULAR HGB CONC 34.4 g/dL (32.0-36.0); MEAN CORPUSCULAR VOLUME 89 fl (80-97); RED BLOOD COUNT 3.46 10^6/uL (3.72-5.28); RED CELL DISTRIBUTION WIDTH 14.3 % (11.5-14.0); WHITE BLOOD COUNT 5.8 10^3/uL (4.0-10.5)
[2016-06-16] MEDS: ENOXAPARIN SODIUM INJ 40 MG/0.4 ML DISP.SYRIN SUBCUT SCH (10:55)
[2016-06-16] MEDS: FAMOTIDINE INJ/PF 20 MG/2 ML SDV IV SCH (10:55)
--- NOTE | 2016-06-16 14:19 | PDOC PROGRESS REPORT ---
Subjective Progress Note for:: 06/16/16 Subjective:: Reason for visit: Follow-up ischemic bowel, septic shock Hospital course: Per consult note "NARENDRA PAPPAS is a 81 year old female with no significant past medical history was admitted to Dr. Hart service when she presented with small bowel obstruction Underwent laparotomy today and small bowel resection for ischemic bowel ; a medical consultation was called Patient to be was somewhat hypotensive on arrival in the ICU, and the CVP reading was low at 3 She was treated with IV fluids Propofol drip and Nigel-Synephrine drip were initiated. Ertapenem 1 g IV piggyback was ordered This morning patient is extremely stable She is still on Nigel-Synephrine drip and propofol drip" Later in the day 06/12/16 she was successfully extubated and weaned off of both the Nigel-Synephrine and propofol drips. She is tolerating advancement to solid food, and reports 2 bowel movements the last 12 hours without worsening of her pain. She is having no nausea vomiting and denies abdominal pain. Her wound remains clean dry and intact and well approximated. Subjective: She denies chest pain, palpitations, fever, chills. Now passing gas and has bowel sounds but no bowel movement as yet. She is tolerating her clear liquid diet without difficulty. ROS: per HPI plus a total of 10 systems reviewed, pertinent positives and negatives noted above, remaining systems negative. Physical Exam Vital Signs: Temp Pulse Resp BP Pulse Ox 97.7 F 73 18 137/50 H 95 06/16/16 12:04 06/16/16 12:04 06/16/16 12:04 06/16/16 12:04 06/16/16 12:04 Intake & Output 06/15/16 06/16/16 06/17/16 06:59 06:59 06:59 Intake Total 3424 1170 Output Total 1500 1400 300 Balance 1924 -230 -300 Weight 59 kg 59.5 kg EXAM GENERAL: NAD; well developed, well nourished; no obese; alert and oriented to person, place, time, situation HEENT: normocephalic, atraumatic; no conjunctival injection, no scleral icterus ; oral mucosa moist; RESPIRATORY: no accessory muscle use, no increased WOB, good air entry bilaterally; no wheezes, rales, rhonchi; bibasilar inspiratory crackles CARDIO: no JVD; RRR; no systolic murmur; no tachycardia GI: soft; nondistended; diminished, lower rumbling bowel sounds; abdominal binder in place; no rebound, rigidity, guarding; appropriately tender to palpation, wound clean dry and intact VASCULAR: no pallor; 2+ radial, DP pulse; normal capillary refill EXTREMITIES: no calf tender; no palpable cords in calf; no clubbing, cyanosis , pedal edema PSYCH: normal affect, normal mood SKIN: warm; moist; no petechiae; no telengectasias; no jaundice; no rash Results Laboratory Results: 06/16/16 06:22 06/13/16 06:50 06/16/16 06:22 WBC 5.8 RBC 3.46 L Hgb 10.6 L Hct 30.9 L MCV 89 MCH 30.7 MCHC 34.4 RDW 14.3 H Plt Count 217 Impressions: Acute Abdomen Series 06/10/16 17:34 IMPRESSION: There is gaseous distention of multiple small bowel loops most consistent with an ileus pattern. The possibility of a developing small bowel obstruction cannot be completely excluded however. Clinical correlation and followup is recommended. Small Bowel X-Ray 06/11/16 00:00 IMPRESSION: Study was terminated before completion. Multiple air distended bowel loops are again identified. KUB X-Ray 06/11/16 07:00 IMPRESSION: Again there is gaseous distention of multiple small bowel loops which again is most consistent with an ileus. Gas and fecal material is identified throughout the colon. Other findings as noted above Chest X-Ray 06/13/16 06:00 IMPRESSION: New consolidation in the superior segment right lower lobe worrisome for pneumonia. Stable bibasilar atelectasis NG tube, left subclavian central line in good positioning Assessment & Plan - Diagnosis (1) Ischemic bowel disease Is this a current diagnosis for this admission?: YesPlan: Status post exploratory laparotomy with resection. She has achieved return of bowel function. Further recommendations per surgery. Defer surgery regarding diet and timing of her discharge. (2) Respiratory failure Qualifiers: Chronicity: acute Is this a current diagnosis for this admission?: YesPlan: Resolved. Successfully extubated. weaned off supplemental O2. Continue incentive spirometer. (3) Normocytic normochromic anemia Is this a current diagnosis for this admission?: YesPlan: Likely related to acute blood loss from the ischemic bowel. Understanding the ischemia was likely mechanical in nature, I still feel compelled to transfuse with a hemoglobin dropping below 8 in an effort to avoid perfusion ischemia in an 81-year-old whose bone marrow is unlikely to rapidly replete lost red blood cells. Risk and benefits of transfusion were described to the patient and she is agreeable to transfusion at this time. We'll transfuse 2 units of packed red blood cells. Discussed with general surgery. Tolerated transfusion without difficulty and appropriate response in her hemoglobin. Continue to monitor H&H. (4) Small bowel obstruction Is this a current diagnosis for this admission?: YesPlan: Secondary to ischemic bowel. Management as above. (5) Septic shock Is this a current diagnosis for this admission?: YesPlan: As evidenced by leukocytosis, tachycardia and a source of ischemic bowel. Resolved. - Time Time Spent with patient: 15-24 minutes Anticipated discharge: Home Within: within 24 hours - Plan Summary Plan Summary: Based respiratory difficulties have resolved and she has no active medical problems at this time. Will sign off, thank you for the consultation, please call with questions. Gen. surgery is the attending physician and will need to make disposition and discharge arrangements.
--- NOTE | 2016-06-16 15:53 | DISCHARGE SUMMARY E ---
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 PROCEDURES PERFORMED: Placement of left subclavian vein central venous catheter, exploratory laparotomy, lysis of adhesions, segmental small-bowel resection of the distal ileum with ileoileostomy stapled anastomosis. HOSPITAL COURSE: The patient presented to the emergency room complaining of acute onset of abdominal pain, nausea and vomiting. The patient had small bowel obstruction a year ago requiring exploratory laparotomy and lysis of adhesions, and in February she was admitted and required nasogastric tube decompression only which she recovered from. The patient presented to the ER and was having abdominal pain and distention, and acute small bowel series showed small bowel obstruction. The patient was taken to the operating room and underwent the aforementioned procedure. The patient's postop course was fairly smooth. She was taken to the ICU postop and intubated and was extubated the following morning. The patient was transferred out of the ICU on the third postop day, after which she was started on a clear liquid diet and then advanced to a regular diet, which she is tolerating well. The patient is doing quite well at this time. Her abdomen is soft with a clean, dry incision which is intact, and she is doing quite well with adequate bowel function. The patient is discharged home at this time and will follow up with Dr. Hart in 1 week. DICTATING PHYSICIAN: DAREN DOUGLAS M.D. [id number] PHY#: [id number] ID: [id number] JOB#: [id number] ACCT: [id number] cc:Yemi BENAVIDES M.D. >
[2016-06-16 16:13] VITALS: BP 122/46
--- NOTE | 2016-06-17 16:25 | PDOC PROGRESS REPORT ---
Subjective Progress Note for:: 06/13/16 Subjective:: improving Physical Exam Vital Signs: Temp Pulse Resp BP Pulse Ox 98.1 F 78 10 L 100/38 L 97 06/13/16 08:00 06/13/16 08:00 06/13/16 08:00 06/13/16 08:00 06/13/16 08:00 Intake & Output 06/12/16 06/13/16 06/14/16 06:59 06:59 06:59 Intake Total 05649 3158 Output Total 4770 1900 75 Balance 8859 1258 -75 Weight 61.7 kg 66 kg General appearance: PRESENT: no acute distress, disheveled Head exam: PRESENT: atraumatic, normocephalic Eye exam: PRESENT: conjunctiva pale Mouth exam: PRESENT: moist, neck supple Neck exam: ABSENT: carotid bruit, JVD, lymphadenopathy, thyromegaly Respiratory exam: PRESENT: decreased breath sounds, prolonged expiratory phas, rales, stridor, symmetrical, unlabored Cardiovascular exam: PRESENT: irregular rhythm Pulses: PRESENT: normal radial pulses GI/Abdominal exam: PRESENT: normal bowel sounds, soft. ABSENT: distended, guarding, mass, organolmegaly, rebound, tenderness Rectal exam: PRESENT: deferred Gentrourinary exam: PRESENT: indwelling catheter Musculoskeletal exam: PRESENT: normal inspection Neurological exam: PRESENT: awake Skin exam: PRESENT: dry, warm Results Laboratory Results: 06/13/16 06:50 06/13/16 06:50 06/12/16 06/13/16 06/13/16 15:00 06:50 06:50 WBC 7.0 RBC 2.81 L Hgb 8.8 L Hct 26.0 L MCV 92 MCH 31.4 MCHC 34.0 RDW 14.6 H Plt Count 148 L Seg Neutrophils % 68.2 Lymphocytes % 21.1 Monocytes % 9.8 Eosinophils % 0.7 Basophils % 0.2 Absolute Neutrophils 4.8 Absolute Lymphocytes 1.5 Absolute Monocytes 0.7 Absolute Eosinophils 0.0 Absolute Basophils 0.0 Carbonic Acid 1.49 H HCO3/H2CO3 Ratio 20:1 ABG pH 7.41 ABG pCO2 49.4 H ABG pO2 60.8 L ABG HCO3 30.5 H ABG O2 Saturation 91.2 L ABG Base Excess 5.0 FiO2 2L Sodium Potassium Chloride Carbon Dioxide Anion Gap BUN Creatinine Est GFR ( Amer) Est GFR (Non-Af Amer) Glucose Calcium Phosphorus Magnesium Total Bilirubin AST ALT Alkaline Phosphatase Total Protein Albumin Urine Color YELLOW Urine Appearance CLEAR Urine pH 5.0 Ur Specific Parker 1.015 Urine Protein NEGATIVE Urine Glucose (UA) NEGATIVE Urine Ketones NEGATIVE Urine Blood NEGATIVE Urine Nitrite NEGATIVE Ur Leukocyte Esterase NEGATIVE Urine WBC (Auto) 1 Urine RBC (Auto) 0 06/13/16 06:50 WBC RBC Hgb Hct MCV MCH MCHC RDW Plt Count Seg Neutrophils % Lymphocytes % Monocytes % Eosinophils % Basophils % Absolute Neutrophils Absolute Lymphocytes Absolute Monocytes Absolute Eosinophils Absolute Basophils Carbonic Acid HCO3/H2CO3 Ratio ABG pH ABG pCO2 ABG pO2 ABG HCO3 ABG O2 Saturation ABG Base Excess FiO2 Sodium 138.1 Potassium 3.6 Chloride 104 Carbon Dioxide 29 Anion Gap 5 BUN 13 Creatinine 0.48 L Est GFR ( Amer) > 60 Est GFR (Non-Af Amer) > 60 Glucose 77 Calcium 8.8 Phosphorus 1.4 L Magnesium 1.9 Total Bilirubin 0.5 AST 16 ALT 30 Alkaline Phosphatase 44 Total Protein 3.8 L Albumin 1.9 L Urine Color Urine Appearance Urine pH Ur Specific Parker Urine Protein Urine Glucose (UA) Urine Ketones Urine Blood Urine Nitrite Ur Leukocyte Esterase Urine WBC (Auto) Urine RBC (Auto) 06/10/16 23:36 Clean Catch Midstream Urine Culture - Final Escherichia Coli Impressions: Acute Abdomen Series 06/10/16 17:34 IMPRESSION: There is gaseous distention of multiple small bowel loops most consistent with an ileus pattern. The possibility of a developing small bowel obstruction cannot be completely excluded however. Clinical correlation and followup is recommended. Small Bowel X-Ray 06/11/16 00:00 IMPRESSION: Study was terminated before completion. Multiple air distended bowel loops are again identified. KUB X-Ray 06/11/16 07:00 IMPRESSION: Again there is gaseous distention of multiple small bowel loops which again is most consistent with an ileus. Gas and fecal material is identified throughout the colon. Other findings as noted above Chest X-Ray 06/13/16 06:00 IMPRESSION: New consolidation in the superior segment right lower lobe worrisome for pneumonia. Stable bibasilar atelectasis NG tube, left subclavian central line in good positioning Assessment & Plan - Diagnosis (1) Respiratory failure Qualifiers: Chronicity: acute Is this a current diagnosis for this admission?: YesPlan: s/p extubation doing well (2) Hypotension Qualifiers: Hypotension type: other hypotension type Qualified Code(s): I95.89 - Other hypotension Is this a current diagnosis for this admission?: No (3) Small bowel obstruction Is this a current diagnosis for this admission?: YesPlan: per surgery (4) Malnutrition Is this a current diagnosis for this admission?: YesPlan: enteral Kcal - Time Critical Time spent with patient: 35 or more minutes
== END 2016-06-16 17:16 | disposition home or self-care (01) | DRG 329 ==
LOC: ER 17:25 → UNDOADMIN 20:08 → EH 20:08 → 5 06-11 00:19 → ICU 06-11 15:05 → 4N 06-13 14:43
PROVIDERS: ADMIT Surgery; ATTEND Surgery
PROC: 0D9670Z Drainage of Stomach with Drainage Device, Via Natural or Artificial Opening (ICD-10-PCS; 2016-06-10)
PROC: 0D1B0Z4 Bypass Ileum to Cutaneous, Open Approach (ICD-10-PCS; 2016-06-11)
PROC: 0DNS0ZZ (ICD-10-PCS; 2016-06-11)
PROC: 5A1935Z Respiratory Ventilation, Less than 24 Consecutive Hours (ICD-10-PCS; 2016-06-11)
PROC: 0BH17EZ Insertion of Endotracheal Airway into Trachea, Via Natural or Artificial Opening (ICD-10-PCS; 2016-06-11)
PROC: 02HV33Z Insertion of Infusion Device into Superior Vena Cava, Percutaneous Approach (ICD-10-PCS; 2016-06-11)
PROC: 0DBB0ZZ Excision of Ileum, Open Approach (ICD-10-PCS; principal; 2016-06-11 13:15)
PROC: 30233N1 Transfusion of Nonautologous Red Blood Cells into Peripheral Vein, Percutaneous Approach (ICD-10-PCS; 2016-06-14)
DX: K56.60 Unspecified intestinal obstruction (principal); J96.00 Acute respiratory failure, unspecified whether with hypoxia or hypercapnia; A41.9 Sepsis, unspecified organism; R65.21 Severe sepsis with septic shock; K55.9 Vascular disorder of intestine, unspecified; E87.2 Acidosis; E46 Unspecified protein-calorie malnutrition; D62 Acute posthemorrhagic anemia; K66.0 Peritoneal adhesions (postprocedural) (postinfection); K21.9 Gastro-esophageal reflux disease without esophagitis; M19.90 Unspecified osteoarthritis, unspecified site; I95.89 Other hypotension; B96.20 Unspecified Escherichia coli [E. coli] as the cause of diseases classified elsewhere; Z68.24 Body mass index [BMI] 24.0-24.9, adult; Z78.1 Physical restraint status; Z90.710 Acquired absence of both cervix and uterus; Z87.891 Personal history of nicotine dependence; Z79.899 Other long term (current) drug therapy; Z86.010 Personal history of colon polyps; Z83.3 Family history of diabetes mellitus; Z82.3 Family history of stroke; Z80.9 Family history of malignant neoplasm, unspecified; Z82.49 Family history of ischemic heart disease and other diseases of the circulatory system
CPT/HCPCS: 36415; 36430; 71010; 74000; 74022; 74250; 80048; 80053; 81001; 82550; 82553; 82803; 83690; 83735; 840; 84100; 84478; 84484; 85025; 85027; 86850; 86900; 86901; 86920; 87040; 87086; 87088; 87186; 88307; 93005; 93010; 94002; 94003; 94799; 96361; 96372; 96374; 96375; 99285; C1751; C9290; J0131; J0330; J0690; J1100; J1335; J1642; J1650; J1940; J2250; J2270; J2370; J2405; J2550; J2704; J3010; J3490; J7030; J7040; J7060; J7120; P9016; S0028; S0119

== ENCOUNTER 2017-02-16 11:33 | Emergency (ER) | payer MEDICARE ==
--- NOTE | 2017-02-16 12:19 | ER Document Report ---
ED Medical Screen (RME) - General Chief Complaint: Hand Swelling Stated Complaint: SWELLING HAND,KNEES,ELBOW Time Seen by Provider: 02/16/17 12:18 Notes: Patient has had swelling of her knees, elbows, and some pain in these joints as well as the shoulders for several months. She was seen at a local urgent care about 5 - 6 weeks ago. And given prednisone for 7 days and an antibiotic for 7 days and had some slight improvement but it has returned and no better. Denies fevers. Patient has not had any lab testing for arthritis. Only takes over-the -counter Aleve. On no other prescription medications except for medication for acid reflux. Does not have a local primary care provider. TRAVEL OUTSIDE OF THE [place] IN LAST 30 DAYS: No - Related Data Allergies/Adverse Reactions: No Known Allergies Allergy (Verified 02/16/17 11:41) Home Medications: Current Home Medications Naproxen Sodium [Aleve] 220 mg PO DAILY 02/16/17 [History] Past Medical History - Social History Chew tobacco use (# tins/day): No Frequency of alcohol use: None Drug Abuse: None Renal/ Medical History: Denies: Hx Peritoneal Dialysis GI Medical History: Reports: Hx Gastroesophageal Reflux Disease Musculoskeltal Medical History: Reports Hx Arthritis Past Surgical History: Reports: Hx Abdominal Surgery - Exploratory laparotomy with lysis of adhesions and detorsion of a volvulus., Hx Herniorrhaphy - Inguinal hernia repair, Hx Hysterectomy, Hx Orthopedic Surgery - Right Carpal tunnel surgery, Other - Patient reports having a colonoscopy 2 weeks ago with polypectomy 16; - Immunizations Hx Diphtheria, Pertussis, Tetanus Vaccination: Yes Physical Exam - Vital signs Vitals: Temp Pulse Resp BP Pulse Ox 98.4 F 93 20 141/63 H 97 02/16/17 11:42 02/16/17 11:42 02/16/17 11:42 02/16/17 11:42 02/16/17 11:42 Course - Vital Signs Vital signs: Temp Pulse Resp BP Pulse Ox 98.4 F 93 20 141/63 H 97 02/16/17 11:42 02/16/17 11:42 02/16/17 11:42 02/16/17 11:42 02/16/17 11:42
[2017-02-16 12:58] LABS: ABSOLUTE LYMPHOCYTES (AUTO) 1.2 10^3/uL (0.5-4.7); ABSOLUTE MONOCYTES (AUTO) 0.7 10^3/uL (0.1-1.4); ABSOLUTE NEUT (AUTO) 5.5 10^3/uL (1.7-8.2); BASOPHILS % (AUTO) 0.2 % (0-2); EOSINOPHILS % (AUTO) 0.3 % (0-6); HEMATOCRIT 35.8 % (36.0-47.0); HGB HCT DIFFERENCE 0.2; LYMPHOCYTES % (AUTO) 16.7 % (13-45); MEAN CORPUSCULAR HEMOGLOBIN 30.8 pg (27.0-33.4); MEAN CORPUSCULAR HGB CONC 33.7 g/dL (32.0-36.0); MEAN CORPUSCULAR VOLUME 92 fl (80-97); MONOCYTES % (AUTO) 9.3 % (3-13); RED BLOOD COUNT 3.91 10^6/uL (3.72-5.28); SEGMENTED NEUTROPHILS % (AUTO) 73.5 % (42-78); WHITE BLOOD COUNT 7.5 10^3/uL (4.0-10.5)
[2017-02-16 13:17] LABS: ALANINE AMINOTRANSFERASE 22 U/L (9-52); ALBUMIN 3.2 g/dL (3.5-5.0); ALKALINE PHOSPHATASE 68 U/L (38-126); ANION GAP 12 (5-19); ASPARTATE AMINO TRANSFERASE 11 U/L (14-36); BILIRUBIN,DIRECT 0.4 mg/dL (0.0-0.4); BILIRUBIN,TOTAL 0.7 mg/dL (0.2-1.3); BLOOD UREA NITROGEN 15 mg/dL (7-20); C-REACTIVE PROTEIN 16.8 mg/L (<10.0); CALCIUM 9.7 mg/dL (8.4-10.2); CARBON DIOXIDE 26 mmol/L (22-30); CHLORIDE 105 mmol/L (98-107); CREATININE RESULT 0.45 mg/dL (0.52-1.25); GLUCOSE 98 mg/dL (75-110); POTASSIUM 3.2 mmol/L (3.6-5.0); SODIUM 142.9 mmol/L (137-145); TOTAL PROTEIN 6.1 g/dL (6.3-8.2); URIC ACID 2.5 mg/dL (2.5-7.5)
[2017-02-16 13:20] LABS: CREATINE KINASE < 20 U/L (30-135)
[2017-02-16 13:36] LABS: ERYTHROCYTE SEDIMENTATION RATE 59 mm/hr (0-30)
--- NOTE | 2017-02-16 14:15 | ER Document Report ---
ED General - General Chief Complaint: Hand Swelling Stated Complaint: SWELLING HAND,KNEES,ELBOW Time Seen by Provider: 02/16/17 12:18 Notes: Patient has been having swelling of her hands, knees, ankles. Has been seen once before for this. No fever. Had complications of surgery over the last 18 months. No problems with her abdomen at this time. Continues to have inflammation of her joints. No fever. Feels chills. TRAVEL OUTSIDE OF THE [place] IN LAST 30 DAYS: No - HPI Onset/Duration: Gradual, Waxing and waning Quality of pain: Achy Associated symptoms: None Exacerbated by: Denies Relieved by: Denies Similar symptoms previously: Yes Recently seen / treated by doctor: Yes - Related Data Allergies/Adverse Reactions: No Known Allergies Allergy (Verified 02/16/17 11:41) Home Medications: Current Home Medications Naproxen Sodium [Aleve] 220 mg PO DAILY 02/16/17 [History] Past Medical History - General Information source: Patient - Social History Smoking Status: Unknown if Ever Smoked Chew tobacco use (# tins/day): No Frequency of alcohol use: None Drug Abuse: None Lives with: Alone Family History: CAD, CVA, DM, Malignancy Patient has suicidal ideation: No Patient has homicidal ideation: No Renal/ Medical History: Denies: Hx Peritoneal Dialysis GI Medical History: Reports: Hx Gastroesophageal Reflux Disease Musculoskeltal Medical History: Reports Hx Arthritis Past Surgical History: Reports: Hx Abdominal Surgery - Exploratory laparotomy with lysis of adhesions and detorsion of a volvulus., Hx Herniorrhaphy - Inguinal hernia repair, Hx Hysterectomy, Hx Orthopedic Surgery - Right Carpal tunnel surgery, Other - Patient reports having a colonoscopy 2 weeks ago with polypectomy 16; - Immunizations Hx Diphtheria, Pertussis, Tetanus Vaccination: Yes Hx Pneumococcal Vaccination: 01/10/16 Review of Systems - Review of Systems Constitutional: No symptoms reported EENT: No symptoms reported Cardiovascular: No symptoms reported Respiratory: No symptoms reported Gastrointestinal: No symptoms reported Genitourinary: No symptoms reported Female Genitourinary: No symptoms reported Musculoskeletal: Joint pain, Joint swelling Skin: No symptoms reported Hematologic/Lymphatic: No symptoms reported Neurological/Psychological: No symptoms reported Physical Exam - Vital signs Vitals: Temp Pulse Resp BP Pulse Ox 98.4 F 93 20 141/63 H 97 02/16/17 11:42 02/16/17 11:42 02/16/17 11:42 02/16/17 11:42 02/16/17 11:42 Interpretation: Normal - General General appearance: Appears well, Alert - HEENT Head: Normocephalic, Atraumatic Eyes: Normal Pupils: PERRL - Respiratory Respiratory status: No respiratory distress Chest status: Nontender Breath sounds: Normal Chest palpation: Normal - Cardiovascular Rhythm: Regular Heart sounds: Normal auscultation Murmur: No - Abdominal Inspection: Normal Distension: No distension Bowel sounds: Normal Tenderness: Nontender Organomegaly: No organomegaly - Back Back: Normal, Nontender - Extremities General upper extremity: Other - Patient has swollen right wrist with warmth to the touch. Tender to the touch. Mild swelling noted to the left wrist. There is mild swelling noted to bilateral elbows but no surrounding erythema. No signs of cellulitis. There is some tenderness to palpation of the ankles bilaterally but no significant swelling. General lower extremity: Normal inspection. No: Adore's sign - Neurological Neuro grossly intact: Yes Cognition: Normal Orientation: AAOx4 [place] Coma Scale Eye Opening: Spontaneous [place] Coma Scale Verbal: Oriented [place] Coma Scale Motor: Obeys Commands [place] Coma Scale Total: 15 Speech: Normal Motor strength normal: LUE, RUE, LLE, RLE Sensory: Normal - Psychological Associated symptoms: Normal affect, Normal mood - Skin Skin Temperature: Warm Skin Moisture: Dry Skin Color: Normal Course - Re-evaluation Re-evalutation: 02/16/17 15:05 She has obvious rheumatological/inflammatory condition. Will start on some Toradol and prednisone. Advised the patient needs to be followed up by a internal medicine versus gravity prospecting operator. Will provide her with that information. We will keep her on some steroids. Advised her to continue with anti-inflammatory medication as well. Is currently already on GI prophylaxis. - Vital Signs Vital signs: Temp Pulse Resp BP Pulse Ox 98.4 F 93 20 141/63 H 99 02/16/17 13:30 02/16/17 11:42 02/16/17 13:30 02/16/17 13:30 02/16/17 13:30 - Laboratory Result Diagrams: 02/16/17 12:46 02/16/17 12:46 Laboratory results interpreted by me: 02/16/17 02/16/17 12:46 12:46 Hct 35.8 L ESR 59 H Potassium 3.2 L Creatinine 0.45 L AST 11 L Creatine Kinase < 20 L C-Reactive Protein 16.8 H Total Protein 6.1 L Albumin 3.2 L Discharge - Discharge Clinical Impression: Inflammatory arthritis Disposition: HOME, SELF-CARE Instructions: Rheumatoid Arthritis ([facility]), Family Physicians / Practices Additional Instructions: If you develop fever, worsening symptoms, abnormal rash, chest pain or other concerns please return immediately. It is very important that you follow-up with a internal medicine doctor specifically someone that specializes in rheumatology. Prescriptions: Naproxen [Naprosyn] 500 mg PO BID 10 Days #20 tablet Prednisone [Deltasone 20 mg Tablet] 3 tab PO DAILY 5 Days #30 tablet Referrals: WILBERT LEONE MD [ACTIVE STAFF] - Follow up as needed
[2017-02-16] MEDS ORDERED: PREDNISONE 20 MG TABLET PO ONE (15:00)
[2017-02-16] MEDS ORDERED: KETOROLAC TROMETHAMINE 60 MG/2 ML SDV IM ONE (15:00)
[2017-02-16 15:34] VITALS: BP 135/53
== END 2017-02-16 15:34 | disposition home or self-care (01) ==
LOC: ER 11:33
DX: M13.80 Other specified arthritis, unspecified site (principal); M79.89 Other specified soft tissue disorders; Z79.899 Other long term (current) drug therapy
CPT/HCPCS: 99283; 96372; 36415; 82550; 84550; 85025; 85652; 86140; 86430; 80053; J1885; A9270; J7512

== ENCOUNTER 2017-02-25 07:48 | Inpatient (IN) | payer MEDICARE ==
[2017-02-25] MEDS ORDERED: ONDANSETRON HCL INJ/PF 4 MG/2 ML SDV IV ONE ×2 (08:05→10:58)
--- NOTE | 2017-02-25 08:17 | ER Document Report ---
ED General - General Chief Complaint: Abdominal Pain Stated Complaint: ABDOMINAL PAIN Time Seen by Provider: 02/25/17 08:01 Mode of Arrival: Ambulatory Information source: Patient, Relative Notes: 81-year-old female history of 3 previous abdominal obstructions presents with complaints of vomiting for 2 days. Patient notes she has not been able to hold anything down states it is cramping in her abdomen feels similar to previous obstructions TRAVEL OUTSIDE OF THE [place] IN LAST 30 DAYS: No - HPI Onset: Other - 2 day duration Onset/Duration: Persistent Quality of pain: Cramping Severity: Mild Pain Level: 1 Associated symptoms: Nausea, Vomiting, Other Exacerbated by: Denies Relieved by: Denies Similar symptoms previously: Yes Recently seen / treated by doctor: Yes - Related Data Allergies/Adverse Reactions: No Known Allergies Allergy (Verified 02/16/17 11:41) Past Medical History - Social History Smoking Status: Never Smoker Cigarette use (# per day): No Chew tobacco use (# tins/day): No Smoking Education Provided: No Family History: CAD, CVA, DM, Malignancy Patient has suicidal ideation: No Patient has homicidal ideation: No Renal/ Medical History: Denies: Hx Peritoneal Dialysis GI Medical History: Reports: Hx Gastroesophageal Reflux Disease Musculoskeltal Medical History: Reports Hx Arthritis Past Surgical History: Reports: Hx Abdominal Surgery - Exploratory laparotomy with lysis of adhesions and detorsion of a volvulus., Hx Herniorrhaphy - Inguinal hernia repair, Hx Hysterectomy, Hx Orthopedic Surgery - Right Carpal tunnel surgery, Other - Patient reports having a colonoscopy 2 weeks ago with polypectomy 16; - Immunizations Hx Diphtheria, Pertussis, Tetanus Vaccination: Yes Hx Pneumococcal Vaccination: 01/10/16 Review of Systems - Review of Systems Notes: REVIEW OF SYSTEMS: CONSTITUTIONAL : Denies fever, chills, or sweats. Denies recent illness. EENT: Denies eye, ear, throat, or mouth pain or symptoms. Denies nasal or sinus congestion or discharge. Denies throat, tongue, or mouth swelling or difficulty swallowing. CARDIOVASCULAR: Denies chest pain. Denies palpitations or racing or irregular heart beat. Denies ankle edema. RESPIRATORY: Denies cough, cold, or chest congestion. Denies shortness of breath, difficulty breathing, or wheezing. GASTROINTESTINAL: Admits to abdominal pain GENITOURINARY: Denies difficulty urinating, painful urination, burning, frequency, blood in urine, or discharge. FEMALE GENITOURINARY: Denies vaginal bleeding, heavy or abnormal periods, irregular periods. Denies vaginal discharge or odor. MUSCULOSKELETAL: Denies back or neck pain or stiffness. Denies joint pain or swelling. SKIN: Denies rash, lesions or sores. HEMATOLOGIC : Denies easy bruising or bleeding. LYMPHATIC: Denies swollen, enlarged glands. NEUROLOGICAL: Denies confusion or altered mental status. Denies passing out or loss of consciousness. Denies dizziness or lightheadedness. Denies headache. Denies weakness or paralysis or loss of use of either side. Denies problems with gait or speech. Denies sensory loss, numbness, or tingling. Denies seizures. PSYCHIATRIC: Denies anxiety or stress. Denies depression, suicidal ideation, or homicidal ideation. ALL OTHER SYSTEMS REVIEWED AND NEGATIVE. PHYSICAL EXAMINATION: GENERAL: Well-appearing, well-nourished and in no acute distress. HEAD: Atraumatic, normocephalic. EYES: Pupils equal round and reactive to light, extraocular movements intact, conjunctiva are normal. ENT: Nares patent, oropharynx clear without exudates. Moist mucous membranes. NECK: Normal range of motion, supple without lymphadenopathy LUNGS: Breath sounds clear to auscultation bilaterally and equal. No wheezes rales or rhonchi. HEART: Regular rate and rhythm without murmurs ABDOMEN: Soft, tender in the suprapubic region Female : deferred Musculoskeletal: Normal range of motion, no pitting or edema. No cyanosis. NEUROLOGICAL: Cranial nerves grossly intact. Normal speech, normal gait. Normal sensory, motor exams PSYCH: Normal mood, normal affect. SKIN: Warm, Dry, normal turgor, no rashes or lesions noted. Dictation was performed using [employer] voice recognition software Physical Exam - Vital signs Vitals: Temp Pulse Resp BP Pulse Ox 97.9 F 106 H 16 97/55 L 96 02/25/17 07:56 02/25/17 07:56 02/25/17 07:56 02/25/17 07:56 02/25/17 07:56 Course - Re-evaluation Re-evalutation: 02/25/17 08:17 Concern for obstruction is noted by patient lab work imaging pending 02/25/17 10:47 Small bowel obstruction is noted on CT, Dr.yusuf will admit , ng tube ordered - Vital Signs Vital signs: Temp Pulse Resp BP Pulse Ox 97.9 F 67 15 143/55 H 95 02/25/17 07:56 02/25/17 10:29 02/25/17 10:29 02/25/17 10:29 02/25/17 10:29 - Laboratory Result Diagrams: 02/25/17 08:35 02/25/17 08:35 Laboratory results interpreted by me: 02/25/17 02/25/17 02/25/17 08:35 08:35 08:45 RDW 14.7 H Seg Neutrophils % 83.4 H Lymphocytes % 10.0 L Potassium 3.5 L Chloride 93 L Carbon Dioxide 38 H BUN 28 H Glucose 129 H Direct Bilirubin 0.6 H Total Protein 6.1 L Albumin 3.4 L Urine Protein 100 H Urine Glucose (UA) 50 H Urine Ketones 80 H Urine Urobilinogen 2.0 H - Diagnostic Test Radiology reviewed: Image reviewed, Reports reviewed Discharge - Discharge Clinical Impression: Small bowel obstruction Condition: Stable Disposition: ADMITTED INPATIENT Admitting Provider: Surgicalist Unit Admitted: Surgical Floor Referrals: CHEN CHOU MD [Primary Care Provider] - Follow up as needed
[2017-02-25 09:03] LABS: ABSOLUTE MONOCYTES (AUTO) 0.6 10^3/uL (0.1-1.4); ABSOLUTE NEUT (AUTO) 8.2 10^3/uL (1.7-8.2); BASOPHILS % (AUTO) 0.1 % (0-2); HEMATOCRIT 38.9 % (36.0-47.0); HEMOGLOBIN 13.5 g/dL (12.0-15.5); HGB HCT DIFFERENCE 1.6; MEAN CORPUSCULAR HEMOGLOBIN 31.7 pg (27.0-33.4); MEAN CORPUSCULAR HGB CONC 34.6 g/dL (32.0-36.0); MEAN CORPUSCULAR VOLUME 92 fl (80-97); MONOCYTES % (AUTO) 6.5 % (3-13); RED BLOOD COUNT 4.26 10^6/uL (3.72-5.28); RED CELL DISTRIBUTION WIDTH 14.7 % (11.5-14.0); SEGMENTED NEUTROPHILS % (AUTO) 83.4 % (42-78); WHITE BLOOD COUNT 9.9 10^3/uL (4.0-10.5)
[2017-02-25 09:23] LABS: ALANINE AMINOTRANSFERASE 27 U/L (9-52); ALBUMIN 3.4 g/dL (3.5-5.0); ALKALINE PHOSPHATASE 57 U/L (38-126); ANION GAP 13 (5-19); ASPARTATE AMINO TRANSFERASE 16 U/L (14-36); BILIRUBIN,DIRECT 0.6 mg/dL (0.0-0.4); BLOOD UREA NITROGEN 28 mg/dL (7-20); CALCIUM 10.2 mg/dL (8.4-10.2); CARBON DIOXIDE 38 mmol/L (22-30); CHLORIDE 93 mmol/L (98-107); CREATININE RESULT 0.66 mg/dL (0.52-1.25); GLUCOSE 129 mg/dL (75-110); LIPASE 25.3 U/L (23-300); POTASSIUM 3.5 mmol/L (3.6-5.0); SODIUM 143.5 mmol/L (137-145); TOTAL PROTEIN 6.1 g/dL (6.3-8.2)
[2017-02-25 09:56] LABS: APPEARANCE,URINE SLIGHTLY-CLOUDY; BILIRUBIN,URINE NEGATIVE (NEGATIVE); GLUCOSE, URINE 50 mg/dL (NEGATIVE); KETONES,URINE 80 mg/dL (NEGATIVE); LEUKOCYTE ESTERASE,URINE NEGATIVE (NEGATIVE); NITRITE,URINE NEGATIVE (NEGATIVE); PROTEIN,URINE 100 mg/dL (NEGATIVE); URINE SPECIFIC GRAVITY 1.026
[2017-02-25 09:58] LABS: WBC,URINE RARE /HPF
--- NOTE | 2017-02-25 10:44 | RADIOLOGY REPORT (SQ) ---
EXAM DESCRIPTION: CT ABD/PELVIS WITH IV ONLY COMPLETED DATE/TIME: 02/25/2017 10:23 am REASON FOR STUDY: abd pain, hx obstructions COMPARISON: 03/11/2016 TECHNIQUE: CT scan of the abdomen and pelvis performed using helical scanning technique with dynamic intravenous contrast injection. No oral contrast. Images reviewed with lung, soft tissue, and bone windows. Reconstructed coronal and sagittal MPR images reviewed. Delayed images for evaluation of the urinary system also acquired. All images stored on PACS. All CT scanners at this facility use dose modulation, iterative reconstruction, and/or weight based d osing when appropriate to reduce radiation dose to as low as reasonably achievable (ALARA). [facility]: Dose Right [facility]: CareDose [facility]: Dose Right [facility]: Teradose 4D [facility]: MobileGlobe CONTRAST TYPE AND DOSE: 100 cc Isovue 370- low osmolar. RENAL FUNCTION: GFR > 60. RADIATION DOSE: . LIMITATIONS: None. FINDINGS: LOWER CHEST: No significant findings. No nodules or infiltrates. LIVER: Normal size. No masses. No dilated ducts. SPLEEN: Normal size. No focal lesions. PANCREAS: No masses. No significant calcifications. No adjacent inflammation or peripancreatic fluid collections. Pancreatic duct not dilated. GALLBLADDER: No identified stones by CT criteria. No inflammatory changes to suggest cholecystitis. ADRENAL GLANDS: No significant masses or asymmetry. RIGHT KIDNEY AND URETER: No solid masses. No significant calcifications. No hydronephrosis or hyd roureter. LEFT KIDNEY AND URETER: Large cyst upper pole. No solid masses. No significant calcifications. N o hydronephrosis or hydroureter. AORTA AND VESSELS: No aneurysm. No dissection. Renal arteries, SMA, celiac without stenosis. RETROPERITONEUM: No retroperitoneal adenopathy, hemorrhage or masses. BOWEL AND PERITONEAL CAVITY: Gastric distention. Dilated loops of small bowel without clear transiti on. Possible closed loop obstruction right upper quadrant. More distal small bowel is normal in woody iber. Gas and fecal material in the colon. Diverticulosis. No ascites or free air. APPENDIX: Normal. PELVIS: No mass. No free fluid. Normal bladder. ABDOMINAL WALL: No masses. No hernias. BONES: No significant or acute findings. OTHER: No other significant finding. IMPRESSION: Small bowel obstruction possibly due to internal hernia right upper quadrant. Surgical consultation is recommended. TECHNICAL DOCUMENTATION: JOB ID: [id number] Quality ID # [id number]: Final reports with documentation of one or more dose reduction techniques (e.g., Au tomated exposure control, adjustment of the mA and/or kV according to patient size, use of iterative reconstruction technique) 2010 [employer]- All Rights Reserved
[2017-02-25] MEDS ORDERED: LIDOCAINE 2% JELLY 5 ML TUBE ONE (10:50)
--- NOTE | 2017-02-25 11:08 | PDOC H&P ---
History of Present Illness Admission Date/PCP: CHEN CHOU MD 02/25/2017 Patient complains of: 81-year-old female history of 3 previous abdominal obstructions presents with complaints of vomiting for 2 days. Patient notes she has not been able to hold anything down states it is cramping in her abdomen feels similar to previous obstructions. Pt had DOLLY for SBO 05/[address] Hart, where 3 feet of ischemic bowel was removed. History of Present Illness: NARENDRA PAPPAS is a 81 year old female Past Medical History GI Medical History: Reports: Gastroesophageal Reflux Disease Musculoskeltal Medical History: Reports: Arthritis Past Surgical History Past Surgical History: Reports: Herniorrhaphy - Inguinal hernia repair, Hysterectomy, Orthopedic Surgery - Right Carpal tunnel surgery, Other - Patient reports having a colonoscopy 2 weeks ago with polypectomy 16; Social History Smoking Status: Never Smoker Frequency of Alcohol Use: None Hx Recreational Drug Use: No Drugs: None Hx Prescription Drug Abuse: No Family History Family History: CAD, CVA, DM, Malignancy Parental Family History Reviewed: No Children Family History Reviewed: No Sibling(s) Family History Reviewed.: No Medication/Allergy Home Medications: Omeprazole 20 mg PO DAILY 06/12/16 Naproxen Sodium [Aleve] 220 mg PO DAILY 02/16/17 Naproxen [Naprosyn] 500 mg PO BID 10 Days #20 tablet 02/16/17 Prednisone [Deltasone 20 mg Tablet] 3 tab PO DAILY 5 Days #30 tablet 02/16/17 Allergies/Adverse Reactions: No Known Allergies Allergy (Verified 02/16/17 11:41) Physical Exam Vital Signs: Temp Pulse Resp BP Pulse Ox 97.9 F 67 15 143/55 H 95 02/25/17 07:56 02/25/17 10:29 02/25/17 10:29 02/25/17 10:29 02/25/17 10:29 Intake & Output 02/24/17 02/25/17 02/26/17 06:59 06:59 06:59 Weight 50.2 kg General appearance: PRESENT: no acute distress Head exam: PRESENT: atraumatic, normocephalic Mouth exam: PRESENT: dry mucosa, neck supple, tongue midline Neck exam: PRESENT: full ROM. ABSENT: JVD, lymphadenopathy, tenderness, thyromegaly, tracheal deviation Respiratory exam: PRESENT: clear to auscultation tonya Cardiovascular exam: PRESENT: RRR GI/Abdominal exam: PRESENT: distended - Mild, hypoactive bowel sounds, soft. ABSENT: guarding, hernia, tenderness Rectal exam: PRESENT: deferred Results Laboratory Results: 02/25/17 08:35 02/25/17 08:35 02/25/17 02/25/17 02/25/17 08:35 08:35 08:45 WBC 9.9 RBC 4.26 Hgb 13.5 Hct 38.9 MCV 92 MCH 31.7 MCHC 34.6 RDW 14.7 H Plt Count 397 Seg Neutrophils % 83.4 H Lymphocytes % 10.0 L Monocytes % 6.5 Eosinophils % 0.0 Basophils % 0.1 Absolute Neutrophils 8.2 Absolute Lymphocytes 1.0 Absolute Monocytes 0.6 Absolute Eosinophils 0.0 Absolute Basophils 0.0 Sodium 143.5 Potassium 3.5 L Chloride 93 L Carbon Dioxide 38 H Anion Gap 13 BUN 28 H Creatinine 0.66 Est GFR ( Amer) > 60 Est GFR (Non-Af Amer) > 60 Glucose 129 H Calcium 10.2 Total Bilirubin 1.0 AST 16 ALT 27 Alkaline Phosphatase 57 Total Protein 6.1 L Albumin 3.4 L Lipase 25.3 Urine Color YELLOW Urine Appearance SLIGHTLY-CLOUDY Urine pH 5.0 Ur Specific [place] 1.026 Urine Protein 100 H Urine Glucose (UA) 50 H Urine Ketones 80 H Urine Blood NEGATIVE Urine Nitrite NEGATIVE Ur Leukocyte Esterase NEGATIVE Ur Squamous Epith Cells FEW Impressions: Abdomen/Pelvis CT 02/25/17 08:05 IMPRESSION: Small bowel obstruction possibly due to internal hernia right upper quadrant. Surgical consultation is recommended. Assessment & Plan - Plan Summary Plan Summary: NGT decompresssion, IVF's, NPO, and ambulation will be done in hope of avoiding another repeat operaton fpr SBO.
[2017-02-25] MEDS ORDERED: PHARMACY COMMUNICATION ORDER MC NR (11:15)
[2017-02-25] MEDS ORDERED: FAMOTIDINE INJ/PF 20 MG/2 ML SDV IV ONE (12:23)
[2017-02-25] MEDS ORDERED: ENOXAPARIN SODIUM INJ 40 MG/0.4 ML DISP.SYRIN SUBCUT ONE (12:45)
--- NOTE | 2017-02-25 12:53 | RADIOLOGY REPORT (SQ) ---
EXAM DESCRIPTION: KUB/ABDOMEN (SINGLE VIEW) COMPLETED DATE/TIME: 02/25/2017 12:13 pm REASON FOR STUDY: Check Placement of NG Tube COMPARISON: None. NUMBER OF VIEWS: One view. TECHNIQUE: Upright portable view of the chest and upper abdomen. LIMITATIONS: None. FINDINGS: Nasogastric tube tip overlies distal esophagus. Recommend advancing 8-9 cm. IMPRESSION: NG tube distal esophagus.
--- NOTE | 2017-02-25 18:18 | PDOC CONSULTATION ---
Consultation Consult Date: 02/25/17 Attending physician:: DAREN DOUGLAS Consult reason:: Medical management History of Present Illness Admission Date/PCP: 02/25/17 11:04 CHEN CHOU MD History of Present Illness: NARENDRA PAPPAS is a 81 year old white female with a past medical history significant for rheumatoid arthritis, GERD and history of 2 small bowel obstruction status post small bowel resection in the past. The patient presents to the service with nausea and vomiting over the last several days. Unfortunately she has another small bowel obstruction and has been admitted to the surgical service for management. The internal medicine service is consulted for general medical management. At this point in time the patient has no complaints. She says her abdominal pain has subsided. Her vomiting of course has subsided since placement of the NG tube. The patient's feels that she is stronger and is fit to undergo another surgery if need be. Her last resection was in May of this year. The patient states that she was recently on prednisone and naproxen for a flare of her rheumatoid arthritis. Her flare started the first Sunday in December and persisted until a few days ago. Past Medical History GI Medical History: Reports: Gastroesophageal Reflux Disease, Other - Multiple small bowel obstructions Musculoskeltal Medical History: Reports: Arthritis - Rheumatoid arthritis Past Surgical History Past Surgical History: Reports: Herniorrhaphy - Inguinal hernia repair, Hysterectomy, Orthopedic Surgery - Right Carpal tunnel surgery, Other - Patient reports having a colonoscopy 2 weeks ago with polypectomy 16; Social History Smoking Status: Former Smoker Cigarettes Packs Per Day: 1 Cigars Per Day: 0 Pipes Per Day: 0 Number of Years Smokin Last Time Smoked: 01/03/1960 Frequency of Alcohol Use: None Hx Recreational Drug Use: No Drugs: None Hx Prescription Drug Abuse: No - Advance Directive Resuscitation Status: Full Code Family History Family History: CAD, CVA, DM, Malignancy Parental Family History Reviewed: Yes Children Family History Reviewed: Yes Sibling(s) Family History Reviewed.: Yes Medication/Allergy Home Medications: Cholecalciferol (Vitamin D3) [Vitamin D3 1000 Unit Tablet] 1,000 unit PO DAILY 02/25/17 Naproxen [Naprosyn] 500 mg PO BID 02/25/17 [place]-3 Fatty Acids/Fish Oil [Fish Oil 1,000 mg Capsule] 1 cap PO DAILY Omeprazole 20 mg PO DAILY 02/25/17 Polyethylene Glycol 3350 [Miralax Powder 17 gm/Packet] 17 gm PO DAILY 02/25/17 Prednisone [Deltasone 20 mg Tablet] 20 mg PO DAILY 02/25/17 Allergies/Adverse Reactions: No Known Allergies Allergy (Verified 02/25/17 14:50) Review of Systems Review of Systems: The patient denies any chest pain, shortness of breath, further abdominal pain, further vomiting or nausea. She denies blood in stool, blood in the urine, coughing up blood or throwing up blood. She denies fevers but states that she felt as though she had a low-grade fever. She had chills associated with it. Physical Exam Vital Signs: Temp Pulse Resp BP Pulse Ox 98.9 F 85 14 151/44 H 90 L 02/25/17 13:27 02/25/17 13:27 02/25/17 13:27 02/25/17 13:27 02/25/17 13:27 Intake & Output 02/24/17 02/25/17 02/26/17 06:59 06:59 06:59 Weight 48.2 kg GENERAL: This is a well-developed and thin, frail-appearing elderly white female resting in bed currently in no acute distress. HEENT: Normocephalic atraumatic. Trachea is midline. NG tube is in and currently to intermittent wall suction. The patient has gastric contents emptying into her suction container. It appears to be nonbloody. Sclera are anicteric. HEART: Regular rate and rhythm. No murmurs, rubs or gallops. LUNGS: Clear to auscultation bilaterally with equal rise and fall of the chest. ABDOMEN: Soft, nontender, nondistended with hypoactive bowel sounds EXTREMETIES: No clubbing, cyanosis or edema. 2+ peripheral pulses bilaterally. Strength is 5 out of 5 in the upper and lower extremities bilaterally NEURO: Awake, alert and oriented 3. Cranial nerves II through XII are specifically intact. Results Impressions: Abdomen/Pelvis CT 02/25/17 08:05 IMPRESSION: Small bowel obstruction possibly due to internal hernia right upper quadrant. Surgical consultation is recommended. KUB X-Ray 02/25/17 11:13 IMPRESSION: NG tube distal esophagus. Assessment & Plan - Diagnosis (1) Small bowel obstruction Is this a current diagnosis for this admission?: Yes Plan: NG tube is in place. Management as per primary team. Hopefully the patient can avoid surgery again. (2) Hypokalemia Is this a current diagnosis for this admission?: Yes Plan: We will replace IV. Hypokalemia secondary to current use of NG tube and suction for bowel decompression. (3) Rheumatoid arthritis Is this a current diagnosis for this admission?: Yes Plan: Patient is status post prednisone and NSAID use. She states that her flare has settled down tremendously. No further interventions continue supportive care. (4) GERD (gastroesophageal reflux disease) Plan: Will add IV Protonix. (5) Malnutrition Plan: This is something we will need to address once her small bowel obstruction is relieved. For now she is n.p.o. - Time Time Spent: 30 to 50 Minutes
[2017-02-25] MEDS ORDERED: PANTOPRAZOLE SODIUM 40 MG VIAL IV ONE (18:45)
[2017-02-25] MEDS ORDERED: POTASSI CL 20 MEQ/50 ML RIDER 20 MEQ/50 ML RTUPB IV ONE (18:45)
--- NOTE | 2017-02-25 19:03 | EKG REPORT ---
SEVERITY:- ABNORMAL ECG - SINUS RHYTHM MULTIPLE ATRIAL PREMATURE COMPLEXES ABNORMAL T, CONSIDER ISCHEMIA, DIFFUSE LEADS BORDERLINE PROLONGED QT INTERVAL : Confirmed by: Everett Nix MD 25-Feb-2017 19:02:42
[2017-02-25] MEDS: FAMOTIDINE INJ/PF 20 MG/2 ML SDV IV SCH (21:18)
[2017-02-26] MEDS ORDERED: ENOXAPARIN SODIUM INJ 40 MG/0.4 ML DISP.SYRIN SUBCUT SCH (10:00)
[2017-02-26] MEDS ORDERED: PANTOPRAZOLE SODIUM 40 MG VIAL IV SCH (10:00)
[2017-02-26] MEDS: PREDNISONE 20 MG TABLET NG SCH (11:53)
[2017-02-26] MEDS: ENOXAPARIN SODIUM INJ 40 MG/0.4 ML DISP.SYRIN SUBCUT SCH (11:54)
[2017-02-26] MEDS: FAMOTIDINE INJ/PF 20 MG/2 ML SDV IV SCH ×2 (11:54→21:34)
--- NOTE | 2017-02-26 13:32 | PDOC PROGRESS REPORT ---
Subjective Progress Note for:: 02/26/17 Reason For Visit: SMALL BOWEL OBSTRUCTION Patient this morning states she feels better; she did have some flatus. Drainage from nasogastric tube clear. Physical Exam Vital Signs: Temp Pulse Resp BP Pulse Ox 98.3 F 44 L 16 148/48 H 93 02/26/17 07:23 02/26/17 07:23 02/26/17 07:23 02/26/17 07:23 02/26/17 07:23 Intake & Output 02/25/17 02/26/17 02/27/17 06:59 06:59 06:59 Intake Total 1550 Output Total 550 Balance 1000 Weight 52.5 kg General appearance: PRESENT: no acute distress GI/Abdominal exam: PRESENT: other - Soft, nontender no peritoneal signs no rigidity. Results Impressions: Abdomen/Pelvis CT 02/25/17 08:05 IMPRESSION: Small bowel obstruction possibly due to internal hernia right upper quadrant. Surgical consultation is recommended. KUB X-Ray 02/25/17 11:13 IMPRESSION: NG tube distal esophagus. Assessment & Plan - Diagnosis (1) Small bowel obstruction Is this a current diagnosis for this admission?: Yes Plan: Impression: Clinically the patient appears to be opening up with nonoperative management. Recommendations: 1. We will clamp NG tube and if tolerates discontinue 2. Resume home medications. 2. We will check electrolytes today, particularly potassium level.
[2017-02-26 14:33] LABS: ANION GAP 15 (5-19); BLOOD UREA NITROGEN 26 mg/dL (7-20); CALCIUM 8.8 mg/dL (8.4-10.2); CARBON DIOXIDE 25 mmol/L (22-30); CHLORIDE 103 mmol/L (98-107); CREATININE RESULT 0.55 mg/dL (0.52-1.25); GLUCOSE 57 mg/dL (75-110); SODIUM 143.2 mmol/L (137-145)
[2017-02-26] MEDS ORDERED: POTASSIUM CHLORIDE 20 MEQ/15 ML UDCUP PO ONE (15:21)
--- NOTE | 2017-02-26 15:26 | PDOC PROGRESS REPORT ---
Subjective Progress Note for:: 02/26/17 Subjective:: This is a follow-up visit for medical management. The patient states she wants to walk. She also wants a [place] of water to get cleaned up. She currently has no complaints of abdominal pain, chest pain or shortness of breath. Reason For Visit: SMALL BOWEL OBSTRUCTION Physical Exam Vital Signs: Temp Pulse Resp BP Pulse Ox 98.3 F 44 L 16 148/48 H 93 02/26/17 07:23 02/26/17 07:23 02/26/17 07:23 02/26/17 07:23 02/26/17 07:23 Intake & Output 02/25/17 02/26/17 02/27/17 06:59 06:59 06:59 Intake Total 1550 Output Total 550 Balance 1000 Weight 52.5 kg GENERAL: This is a well-developed and thin, frail-appearing elderly white female resting in her recliner currently in no acute distress. HEENT: NG tube is currently clamped. HEART: Regular rate and rhythm. No murmurs, rubs or gallops. LUNGS: Clear to auscultation bilaterally with equal rise and fall of the chest. ABDOMEN: Soft, nontender, nondistended with hypoactive bowel sounds EXTREMETIES: No clubbing, cyanosis or edema. 2+ peripheral pulses bilaterally. NEURO: Awake, alert and oriented 3. Cranial nerves II through XII are specifically intact. Results Laboratory Results: 02/26/17 14:08 02/26/17 14:08 Sodium 143.2 Potassium 3.0 L* Chloride 103 Carbon Dioxide 25 Anion Gap 15 BUN 26 H Creatinine 0.55 Est GFR ( Amer) > 60 Est GFR (Non-Af Amer) > 60 Glucose 57 L Calcium 8.8 Impressions: Abdomen/Pelvis CT 02/25/17 08:05 IMPRESSION: Small bowel obstruction possibly due to internal hernia right upper quadrant. Surgical consultation is recommended. KUB X-Ray 02/25/17 11:13 IMPRESSION: NG tube distal esophagus. Assessment & Plan - Diagnosis (1) Small bowel obstruction Is this a current diagnosis for this admission?: Yes Plan: NG tube is in place. Management as per primary team. Hopefully the patient can avoid surgery again. (2) Hypokalemia Is this a current diagnosis for this admission?: Yes Plan: Hypokalemia secondary to current use of NG tube and suction for bowel decompression. Chem-7 pending (3) Rheumatoid arthritis Is this a current diagnosis for this admission?: Yes Plan: Patient is status post prednisone and NSAID use. She states that her flare has settled down tremendously. No further interventions continue supportive care. (4) GERD (gastroesophageal reflux disease) Plan: Will add IV Protonix. (5) Malnutrition Plan: This is something we will need to address once her small bowel obstruction is relieved. For now she is n.p.o. - Time Time Spent with patient: 15-24 minutes
[2017-02-27] MEDS: PREDNISONE 20 MG TABLET NG SCH (12:02)
[2017-02-27] MEDS: FAMOTIDINE INJ/PF 20 MG/2 ML SDV IV SCH ×2 (12:02→21:41)
[2017-02-27] MEDS: POTASSI CL 20 MEQ/50 ML RIDER 20 MEQ/50 ML RTUPB IV SCH ×2 (12:03→15:18)
[2017-02-27] MEDS: ENOXAPARIN SODIUM INJ 40 MG/0.4 ML DISP.SYRIN SUBCUT SCH (12:04)
--- NOTE | 2017-02-27 15:38 | PDOC PROGRESS REPORT ---
Subjective Progress Note for:: 02/27/17 Subjective:: Patient has been having flatus since yesterday evening. Reason For Visit: SMALL BOWEL OBSTRUCTION Physical Exam Vital Signs: Temp Pulse Resp BP Pulse Ox 98.1 F 61 20 152/49 H 98 02/27/17 12:00 02/27/17 12:00 02/27/17 12:00 02/27/17 12:00 02/27/17 12:00 Intake & Output 02/26/17 02/27/17 02/28/17 06:59 06:59 06:59 Intake Total 1550 900 Output Total 550 Balance 1000 900 Weight 52.5 kg 54.2 kg General appearance: PRESENT: no acute distress. ABSENT: cooperative GI/Abdominal exam: PRESENT: normal bowel sounds, soft. ABSENT: distended, guarding, organolmegaly, tenderness Results Laboratory Results: 02/26/17 14:08 Impressions: Abdomen/Pelvis CT 02/25/17 08:05 IMPRESSION: Small bowel obstruction possibly due to internal hernia right upper quadrant. Surgical consultation is recommended. KUB X-Ray 02/25/17 11:13 IMPRESSION: NG tube distal esophagus. Assessment & Plan - Diagnosis (1) Small bowel obstruction Is this a current diagnosis for this admission?: Yes - Plan Summary Plan Summary: Resolved small bowel obstruction... Will start clear liquid diet, and will discontinue the clamped NG tube, if well tolerated
--- NOTE | 2017-02-27 16:25 | PDOC PROGRESS REPORT ---
Subjective Progress Note for:: 02/27/17 Subjective:: Patient reports having flatus last night. Reason For Visit: SMALL BOWEL OBSTRUCTION Physical Exam Vital Signs: Temp Pulse Resp BP Pulse Ox 98.1 F 61 20 152/49 H 98 02/27/17 12:00 02/27/17 12:00 02/27/17 12:00 02/27/17 12:00 02/27/17 12:00 Intake & Output 02/26/17 02/27/17 02/28/17 06:59 06:59 06:59 Intake Total 1550 900 Output Total 550 Balance 1000 900 Weight 52.5 kg 54.2 kg General appearance: PRESENT: no acute distress Eye exam: PRESENT: conjunctiva pink. ABSENT: scleral icterus Mouth exam: PRESENT: moist, tongue midline Neck exam: ABSENT: JVD Respiratory exam: PRESENT: clear to auscultation tonya. ABSENT: rales, rhonchi, wheezes Cardiovascular exam: PRESENT: RRR. ABSENT: diastolic murmur, rubs, systolic murmur GI/Abdominal exam: PRESENT: normal bowel sounds, soft. ABSENT: distended, guarding, mass, organolmegaly, rebound, tenderness Extremities exam: ABSENT: calf tenderness, clubbing, pedal edema Neurological exam: PRESENT: alert, awake, oriented to person, oriented to place , oriented to time, oriented to situation, CN II-XII grossly intact. ABSENT: motor sensory deficit Psychiatric exam: PRESENT: appropriate affect Skin exam: PRESENT: dry, intact, warm. ABSENT: cyanosis, rash Results Laboratory Results: 02/26/17 14:08 Impressions: Abdomen/Pelvis CT 02/25/17 08:05 IMPRESSION: Small bowel obstruction possibly due to internal hernia right upper quadrant. Surgical consultation is recommended. KUB X-Ray 02/25/17 11:13 IMPRESSION: NG tube distal esophagus. Assessment & Plan - Diagnosis (1) Small bowel obstruction Is this a current diagnosis for this admission?: Yes Plan: The patient's obstruction appears to be improving. She is passing flatus. Surgery has advanced the diet. (2) GERD (gastroesophageal reflux disease) Is this a current diagnosis for this admission?: Yes (3) Rheumatoid arthritis Is this a current diagnosis for this admission?: Yes Plan: No evidence for any flare at this time. (4) Malnutrition Is this a current diagnosis for this admission?: Yes Plan: Patient is to advance her diet per surgery's recommendations. - Time Time Spent with patient: 15-24 minutes - Inpatient Certification Medical Necessity: Need Close Monitoring Due to Risk of Patient Decompensation
[2017-02-28 08:28] LABS: ABSOLUTE EOSINOPHILS # (AUTO) 0.2 10^3/uL (0.0-0.6); ABSOLUTE LYMPHOCYTES (AUTO) 1.2 10^3/uL (0.5-4.7); ABSOLUTE MONOCYTES (AUTO) 0.5 10^3/uL (0.1-1.4); ABSOLUTE NEUT (AUTO) 5.2 10^3/uL (1.7-8.2); BASOPHILS % (AUTO) 0.5 % (0-2); EOSINOPHILS % (AUTO) 2.7 % (0-6); HEMATOCRIT 32.2 % (36.0-47.0); HGB HCT DIFFERENCE 0.5; MEAN CORPUSCULAR HEMOGLOBIN 30.8 pg (27.0-33.4); MEAN CORPUSCULAR HGB CONC 33.8 g/dL (32.0-36.0); MEAN CORPUSCULAR VOLUME 91 fl (80-97); MONOCYTES % (AUTO) 7.2 % (3-13); RED BLOOD COUNT 3.53 10^6/uL (3.72-5.28); RED CELL DISTRIBUTION WIDTH 14.9 % (11.5-14.0); SEGMENTED NEUTROPHILS % (AUTO) 72.6 % (42-78); WHITE BLOOD COUNT 7.2 10^3/uL (4.0-10.5)
[2017-02-28 08:32] LABS: HEMOGLOBIN 10.9 g/dL (12.0-15.5)
[2017-02-28] MEDS: ENOXAPARIN SODIUM INJ 40 MG/0.4 ML DISP.SYRIN SUBCUT SCH (10:09)
[2017-02-28] MEDS: PREDNISONE 20 MG TABLET NG SCH (10:09)
[2017-02-28] MEDS: FAMOTIDINE INJ/PF 20 MG/2 ML SDV IV SCH ×2 (10:10→21:38)
[2017-02-28] MEDS: NORMAL SALINE 1000 ML 1,000 ML IV PRN (10:13)
[2017-02-28 11:06] LABS: ANION GAP 12 (5-19); BLOOD UREA NITROGEN 9 mg/dL (7-20); CALCIUM 8.6 mg/dL (8.4-10.2); CARBON DIOXIDE 26 mmol/L (22-30); CHLORIDE 102 mmol/L (98-107); CREATININE RESULT 0.41 mg/dL (0.52-1.25); GLUCOSE 123 mg/dL (75-110); POTASSIUM 3.4 mmol/L (3.6-5.0); SODIUM 140.2 mmol/L (137-145)
--- NOTE | 2017-02-28 12:03 | PDOC PROGRESS REPORT ---
Subjective Progress Note for:: 02/28/17 Subjective:: She reports that she had a small bowel movement early this morning. Reason For Visit: SMALL BOWEL OBSTRUCTION Physical Exam Vital Signs: Temp Pulse Resp BP Pulse Ox 98.4 F 60 18 150/59 H 94 02/28/17 08:00 02/28/17 08:00 02/28/17 08:00 02/28/17 08:00 02/28/17 09:13 Intake & Output 02/27/17 02/28/17 03/01/17 06:59 06:59 06:59 Intake Total 900 2228 Balance 900 2228 Weight 54.2 kg 54.3 kg General appearance: PRESENT: no acute distress Eye exam: PRESENT: conjunctiva pink. ABSENT: scleral icterus Mouth exam: PRESENT: moist, tongue midline Neck exam: ABSENT: JVD Respiratory exam: PRESENT: clear to auscultation tonya. ABSENT: rales, rhonchi, wheezes Cardiovascular exam: PRESENT: RRR. ABSENT: diastolic murmur, rubs, systolic murmur GI/Abdominal exam: PRESENT: normal bowel sounds, soft. ABSENT: distended, guarding, mass, organolmegaly, rebound, tenderness Extremities exam: ABSENT: calf tenderness, clubbing, pedal edema Neurological exam: PRESENT: alert, awake, oriented to person, oriented to place , oriented to time, oriented to situation, CN II-XII grossly intact. ABSENT: motor sensory deficit Psychiatric exam: PRESENT: appropriate affect Skin exam: PRESENT: dry, intact, warm. ABSENT: cyanosis, rash Results Laboratory Results: 02/28/17 07:50 02/28/17 10:30 02/28/17 02/28/17 02/28/17 07:50 07:50 09:33 WBC 7.2 RBC 3.53 L Hgb 10.9 L D Hct 32.2 L MCV 91 MCH 30.8 MCHC 33.8 RDW 14.9 H Plt Count 333 Seg Neutrophils % 72.6 Lymphocytes % 17.0 Monocytes % 7.2 Eosinophils % 2.7 Basophils % 0.5 Absolute Neutrophils 5.2 Absolute Lymphocytes 1.2 Absolute Monocytes 0.5 Absolute Eosinophils 0.2 Absolute Basophils 0.0 Sodium Cancelled Cancelled Potassium Cancelled Cancelled Chloride Cancelled Cancelled Carbon Dioxide Cancelled Cancelled Anion Gap Cancelled Cancelled BUN Cancelled Cancelled Creatinine Cancelled Cancelled Est GFR ( Amer) Cancelled Cancelled Est GFR (Non-Af Amer) Cancelled Cancelled Glucose Cancelled Cancelled Calcium Cancelled Cancelled 02/28/17 10:30 WBC RBC Hgb Hct MCV MCH MCHC RDW Plt Count Seg Neutrophils % Lymphocytes % Monocytes % Eosinophils % Basophils % Absolute Neutrophils Absolute Lymphocytes Absolute Monocytes Absolute Eosinophils Absolute Basophils Sodium 140.2 Potassium 3.4 L Chloride 102 Carbon Dioxide 26 Anion Gap 12 BUN 9 Creatinine 0.41 L Est GFR ( Amer) > 60 Est GFR (Non-Af Amer) > 60 Glucose 123 H Calcium 8.6 Impressions: Abdomen/Pelvis CT 02/25/17 08:05 IMPRESSION: Small bowel obstruction possibly due to internal hernia right upper quadrant. Surgical consultation is recommended. KUB X-Ray 02/25/17 11:13 IMPRESSION: NG tube distal esophagus. Assessment & Plan - Diagnosis (1) Small bowel obstruction Is this a current diagnosis for this admission?: Yes Plan: The patient's obstruction appears to be improving. Management per surgery (2) GERD (gastroesophageal reflux disease) Is this a current diagnosis for this admission?: Yes (3) Rheumatoid arthritis Is this a current diagnosis for this admission?: Yes Plan: Patient has some swelling in her bilateral wrist. Will increase her prednisone dose to 40 mg daily for the next several days. (4) Malnutrition Is this a current diagnosis for this admission?: Yes Plan: Patient is to advance her diet per surgery's recommendations. - Time Time Spent with patient: 15-24 minutes - Inpatient Certification Medical Necessity: Need Close Monitoring Due to Risk of Patient Decompensation
[2017-02-28] MEDS ORDERED: MAGNESIUM HYDROXIDE SUSP 30 ML UDCUP PO ONE (20:00)
--- NOTE | 2017-02-28 20:15 | PDOC PROGRESS REPORT ---
Subjective Progress Note for:: 02/28/17 Subjective:: Patient complains of mild abdominal discomfort. Has passed gas, and a small amount of feces. Reason For Visit: SMALL BOWEL OBSTRUCTION Physical Exam Vital Signs: Temp Pulse Resp BP Pulse Ox 98.5 F 69 18 148/56 H 95 02/28/17 16:44 02/28/17 16:44 02/28/17 16:44 02/28/17 16:44 02/28/17 17:54 Intake & Output 02/27/17 02/28/17 03/01/17 06:59 06:59 06:59 Intake Total 900 2228 1350 Balance 900 2228 1350 Weight 54.2 kg 54.3 kg GI/Abdominal exam: PRESENT: normal bowel sounds, soft. ABSENT: distended, guarding, tenderness Results Laboratory Results: 02/28/17 07:50 02/28/17 10:30 02/28/17 02/28/17 02/28/17 07:50 07:50 09:33 WBC 7.2 RBC 3.53 L Hgb 10.9 L D Hct 32.2 L MCV 91 MCH 30.8 MCHC 33.8 RDW 14.9 H Plt Count 333 Seg Neutrophils % 72.6 Lymphocytes % 17.0 Monocytes % 7.2 Eosinophils % 2.7 Basophils % 0.5 Absolute Neutrophils 5.2 Absolute Lymphocytes 1.2 Absolute Monocytes 0.5 Absolute Eosinophils 0.2 Absolute Basophils 0.0 Sodium Cancelled Cancelled Potassium Cancelled Cancelled Chloride Cancelled Cancelled Carbon Dioxide Cancelled Cancelled Anion Gap Cancelled Cancelled BUN Cancelled Cancelled Creatinine Cancelled Cancelled Est GFR ( Amer) Cancelled Cancelled Est GFR (Non-Af Amer) Cancelled Cancelled Glucose Cancelled Cancelled Calcium Cancelled Cancelled 02/28/17 10:30 WBC RBC Hgb Hct MCV MCH MCHC RDW Plt Count Seg Neutrophils % Lymphocytes % Monocytes % Eosinophils % Basophils % Absolute Neutrophils Absolute Lymphocytes Absolute Monocytes Absolute Eosinophils Absolute Basophils Sodium 140.2 Potassium 3.4 L Chloride 102 Carbon Dioxide 26 Anion Gap 12 BUN 9 Creatinine 0.41 L Est GFR ( Amer) > 60 Est GFR (Non-Af Amer) > 60 Glucose 123 H Calcium 8.6 Impressions: Abdomen/Pelvis CT 02/25/17 08:05 IMPRESSION: Small bowel obstruction possibly due to internal hernia right upper quadrant. Surgical consultation is recommended. KUB X-Ray 02/25/17 11:13 IMPRESSION: NG tube distal esophagus. Assessment & Plan - Diagnosis (1) Small bowel obstruction Is this a current diagnosis for this admission?: Yes - Plan Summary Plan Summary: Resolved small bowel obstruction... will advance diet
[2017-03-01 06:36] LABS: ABSOLUTE BASOPHILS # (AUTO) 0.1 10^3/uL (0.0-0.2); ABSOLUTE EOSINOPHILS # (AUTO) 0.2 10^3/uL (0.0-0.6); ABSOLUTE MONOCYTES (AUTO) 0.7 10^3/uL (0.1-1.4); ABSOLUTE NEUT (AUTO) 4.2 10^3/uL (1.7-8.2); EOSINOPHILS % (AUTO) 2.6 % (0-6); HEMATOCRIT 35.2 % (36.0-47.0); HEMOGLOBIN 11.8 g/dL (12.0-15.5); HGB HCT DIFFERENCE 0.2; LYMPHOCYTES % (AUTO) 27.8 % (13-45); MEAN CORPUSCULAR HEMOGLOBIN 30.5 pg (27.0-33.4); MEAN CORPUSCULAR HGB CONC 33.6 g/dL (32.0-36.0); MEAN CORPUSCULAR VOLUME 91 fl (80-97); MONOCYTES % (AUTO) 9.3 % (3-13); RED BLOOD COUNT 3.88 10^6/uL (3.72-5.28); SEGMENTED NEUTROPHILS % (AUTO) 59.3 % (42-78); WHITE BLOOD COUNT 7.1 10^3/uL (4.0-10.5)
[2017-03-01 06:52] LABS: ANION GAP 6 (5-19); BLOOD UREA NITROGEN 6 mg/dL (7-20); CALCIUM 9.3 mg/dL (8.4-10.2); CARBON DIOXIDE 33 mmol/L (22-30); CHLORIDE 103 mmol/L (98-107); CREATININE RESULT 0.43 mg/dL (0.52-1.25); GLUCOSE 75 mg/dL (75-110); SODIUM 142.1 mmol/L (137-145)
[2017-03-01] MEDS: POTASSI CL 20 MEQ/50 ML RIDER 20 MEQ/50 ML RTUPB IV SCH ×2 (08:06→12:45)
--- NOTE | 2017-03-01 08:26 | PDOC PROGRESS REPORT ---
Subjective Progress Note for:: 03/01/17 Subjective:: Mild residual abdominal discomfort but no nausea or vomiting. Had bowel movements last night. About the start of solid diet today. Reason For Visit: SMALL BOWEL OBSTRUCTION Physical Exam Vital Signs: Temp Pulse Resp BP Pulse Ox 97.6 F 66 16 145/69 H 98 02/28/17 23:46 02/28/17 23:46 02/28/17 23:46 02/28/17 23:46 02/28/17 23:46 Intake & Output 02/28/17 03/01/17 03/02/17 06:59 06:59 06:59 Intake Total 2228 3551 Balance 2228 3551 Weight 54.3 kg 55.9 kg General appearance: PRESENT: no acute distress, cooperative Respiratory exam: PRESENT: clear to auscultation tonya Cardiovascular exam: PRESENT: RRR GI/Abdominal exam: PRESENT: other - Soft, nondistended, no significant tenderness to palpation. Results Laboratory Results: 03/01/17 06:04 03/01/17 06:04 02/28/17 02/28/17 02/28/17 07:50 07:50 09:33 WBC 7.2 RBC 3.53 L Hgb 10.9 L D Hct 32.2 L MCV 91 MCH 30.8 MCHC 33.8 RDW 14.9 H Plt Count 333 Seg Neutrophils % 72.6 Lymphocytes % 17.0 Monocytes % 7.2 Eosinophils % 2.7 Basophils % 0.5 Absolute Neutrophils 5.2 Absolute Lymphocytes 1.2 Absolute Monocytes 0.5 Absolute Eosinophils 0.2 Absolute Basophils 0.0 Sodium Cancelled Cancelled Potassium Cancelled Cancelled Chloride Cancelled Cancelled Carbon Dioxide Cancelled Cancelled Anion Gap Cancelled Cancelled BUN Cancelled Cancelled Creatinine Cancelled Cancelled Est GFR ( Amer) Cancelled Cancelled Est GFR (Non-Af Amer) Cancelled Cancelled Glucose Cancelled Cancelled Calcium Cancelled Cancelled 02/28/17 03/01/17 03/01/17 10:30 06:04 06:04 WBC 7.1 RBC 3.88 Hgb 11.8 L Hct 35.2 L MCV 91 MCH 30.5 MCHC 33.6 RDW 15.0 H Plt Count 312 Seg Neutrophils % 59.3 Lymphocytes % 27.8 Monocytes % 9.3 Eosinophils % 2.6 Basophils % 1.0 Absolute Neutrophils 4.2 Absolute Lymphocytes 2.0 Absolute Monocytes 0.7 Absolute Eosinophils 0.2 Absolute Basophils 0.1 Sodium 140.2 142.1 Potassium 3.4 L 3.0 L* Chloride 102 103 Carbon Dioxide 26 33 H Anion Gap 12 6 BUN 9 6 L Creatinine 0.41 L 0.43 L Est GFR ( Amer) > 60 > 60 Est GFR (Non-Af Amer) > 60 > 60 Glucose 123 H 75 Calcium 8.6 9.3 Impressions: Abdomen/Pelvis CT 02/25/17 08:05 IMPRESSION: Small bowel obstruction possibly due to internal hernia right upper quadrant. Surgical consultation is recommended. KUB X-Ray 02/25/17 11:13 IMPRESSION: NG tube distal esophagus. Assessment & Plan - Diagnosis (1) Small bowel obstruction Is this a current diagnosis for this admission?: Yes Plan: Appears to have resolved. Patient with severe hypokalemia getting replacement. Will start on a solid diet. If patient continues to do well will likely discharge patient home tomorrow.
[2017-03-01] MEDS: POTASSIUM CHLORIDE 10 MEQ TABLET.SA PO SCH ×2 (11:08→21:39)
[2017-03-01] MEDS: ENOXAPARIN SODIUM INJ 40 MG/0.4 ML DISP.SYRIN SUBCUT SCH (11:09)
[2017-03-01] MEDS: PREDNISONE 20 MG TABLET NG SCH (11:09)
[2017-03-01] MEDS: FAMOTIDINE INJ/PF 20 MG/2 ML SDV IV SCH ×2 (12:05→21:39)
[2017-03-01] MEDS: NORMAL SALINE 1000 ML 1,000 ML IV PRN (12:44)
--- NOTE | 2017-03-01 15:55 | PDOC PROGRESS REPORT ---
Subjective Progress Note for:: 03/01/17 Subjective:: Patient is tolerating a diet. Reason For Visit: SMALL BOWEL OBSTRUCTION Physical Exam Vital Signs: Temp Pulse Resp BP Pulse Ox 98.1 F 77 20 162/82 H 97 03/01/17 12:00 03/01/17 12:00 03/01/17 12:00 03/01/17 12:00 03/01/17 12:00 Intake & Output 02/28/17 03/01/17 03/02/17 06:59 06:59 06:59 Intake Total 2228 3551 Balance 2228 3551 Weight 54.3 kg 55.9 kg General appearance: PRESENT: no acute distress Eye exam: PRESENT: conjunctiva pink. ABSENT: scleral icterus Mouth exam: PRESENT: moist, tongue midline Neck exam: ABSENT: JVD Respiratory exam: PRESENT: clear to auscultation tonya. ABSENT: rales, rhonchi, wheezes Cardiovascular exam: PRESENT: RRR. ABSENT: diastolic murmur, rubs, systolic murmur GI/Abdominal exam: PRESENT: normal bowel sounds, soft. ABSENT: distended, guarding, mass, organolmegaly, rebound, tenderness Extremities exam: ABSENT: calf tenderness, clubbing, pedal edema Neurological exam: PRESENT: alert, awake, oriented to person, oriented to place , oriented to time, oriented to situation, CN II-XII grossly intact. ABSENT: motor sensory deficit Psychiatric exam: PRESENT: appropriate affect Skin exam: PRESENT: dry, intact, warm. ABSENT: cyanosis, rash Results Laboratory Results: 03/01/17 06:04 03/01/17 06:04 03/01/17 03/01/17 06:04 06:04 WBC 7.1 RBC 3.88 Hgb 11.8 L Hct 35.2 L MCV 91 MCH 30.5 MCHC 33.6 RDW 15.0 H Plt Count 312 Seg Neutrophils % 59.3 Lymphocytes % 27.8 Monocytes % 9.3 Eosinophils % 2.6 Basophils % 1.0 Absolute Neutrophils 4.2 Absolute Lymphocytes 2.0 Absolute Monocytes 0.7 Absolute Eosinophils 0.2 Absolute Basophils 0.1 Sodium 142.1 Potassium 3.0 L* Chloride 103 Carbon Dioxide 33 H Anion Gap 6 BUN 6 L Creatinine 0.43 L Est GFR ( Amer) > 60 Est GFR (Non-Af Amer) > 60 Glucose 75 Calcium 9.3 Impressions: Abdomen/Pelvis CT 02/25/17 08:05 IMPRESSION: Small bowel obstruction possibly due to internal hernia right upper quadrant. Surgical consultation is recommended. KUB X-Ray 02/25/17 11:13 IMPRESSION: NG tube distal esophagus. Assessment & Plan - Diagnosis (1) Small bowel obstruction Is this a current diagnosis for this admission?: Yes Plan: The patient's obstruction appears to be improving. Management per surgery (2) GERD (gastroesophageal reflux disease) Is this a current diagnosis for this admission?: Yes (3) Rheumatoid arthritis Is this a current diagnosis for this admission?: Yes Plan: Patient has some swelling in her bilateral wrist. Will continue her prednisone dose at 40 mg daily for the next several days. (4) Malnutrition Is this a current diagnosis for this admission?: Yes Plan: Patient is to advance her diet per surgery's recommendations. - Time Time Spent with patient: 25-34 minutes - Inpatient Certification Medical Necessity: Need Close Monitoring Due to Risk of Patient Decompensation
[2017-03-02 06:11] LABS: ABSOLUTE BASOPHILS # (AUTO) 0.1 10^3/uL (0.0-0.2); ABSOLUTE EOSINOPHILS # (AUTO) 0.1 10^3/uL (0.0-0.6); ABSOLUTE MONOCYTES (AUTO) 0.5 10^3/uL (0.1-1.4); ABSOLUTE NEUT (AUTO) 4.9 10^3/uL (1.7-8.2); BASOPHILS % (AUTO) 1.5 % (0-2); EOSINOPHILS % (AUTO) 1.5 % (0-6); HEMATOCRIT 28.7 % (36.0-47.0); HGB HCT DIFFERENCE 0.1; LYMPHOCYTES % (AUTO) 26.2 % (13-45); MEAN CORPUSCULAR HEMOGLOBIN 30.7 pg (27.0-33.4); MEAN CORPUSCULAR HGB CONC 33.6 g/dL (32.0-36.0); MEAN CORPUSCULAR VOLUME 92 fl (80-97); MONOCYTES % (AUTO) 6.8 % (3-13); RED BLOOD COUNT 3.14 10^6/uL (3.72-5.28); RED CELL DISTRIBUTION WIDTH 14.9 % (11.5-14.0); WHITE BLOOD COUNT 7.6 10^3/uL (4.0-10.5)
[2017-03-02 06:15] LABS: HEMOGLOBIN 9.6 g/dL (12.0-15.5)
[2017-03-02 06:26] LABS: BLOOD UREA NITROGEN 10 mg/dL (7-20); CALCIUM 9.1 mg/dL (8.4-10.2); CARBON DIOXIDE 27 mmol/L (22-30); CREATININE RESULT 0.43 mg/dL (0.52-1.25); GLUCOSE 103 mg/dL (75-110)
[2017-03-02 06:38] LABS: ANION GAP 7 (5-19); CHLORIDE 108 mmol/L (98-107); POTASSIUM 3.8 mmol/L (3.6-5.0); SODIUM 141.5 mmol/L (137-145)
[2017-03-02] MEDS: PREDNISONE 20 MG TABLET NG SCH (10:17)
[2017-03-02] MEDS: FAMOTIDINE INJ/PF 20 MG/2 ML SDV IV SCH (10:17)
[2017-03-02] MEDS: POTASSIUM CHLORIDE 10 MEQ TABLET.SA PO SCH (10:17)
[2017-03-02] MEDS: ENOXAPARIN SODIUM INJ 40 MG/0.4 ML DISP.SYRIN SUBCUT SCH (10:19)
--- NOTE | 2017-03-02 13:38 | PDOC PROGRESS REPORT ---
Subjective Progress Note for:: 03/02/17 Subjective:: Patient is tolerating a diet. Reason For Visit: SMALL BOWEL OBSTRUCTION Physical Exam Vital Signs: Temp Pulse Resp BP Pulse Ox 98.1 F 66 15 113/51 L 95 03/02/17 00:00 03/02/17 00:00 03/02/17 00:00 03/02/17 00:00 03/02/17 00:00 Intake & Output 03/01/17 03/02/17 03/03/17 06:59 06:59 06:59 Intake Total 3551 1900 Balance 3551 1900 Weight 55.9 kg 56.8 kg General appearance: PRESENT: no acute distress Eye exam: PRESENT: conjunctiva pink. ABSENT: scleral icterus Mouth exam: PRESENT: moist, tongue midline Neck exam: ABSENT: JVD Respiratory exam: PRESENT: clear to auscultation tonya. ABSENT: rales, rhonchi, wheezes Cardiovascular exam: PRESENT: RRR. ABSENT: diastolic murmur, rubs, systolic murmur GI/Abdominal exam: PRESENT: normal bowel sounds, soft. ABSENT: distended, guarding, mass, organolmegaly, rebound, tenderness Extremities exam: ABSENT: calf tenderness, clubbing, pedal edema Neurological exam: PRESENT: alert, awake, oriented to person, oriented to place , oriented to time, oriented to situation, CN II-XII grossly intact. ABSENT: motor sensory deficit Psychiatric exam: PRESENT: appropriate affect Skin exam: PRESENT: dry, intact, warm. ABSENT: cyanosis, rash Results Laboratory Results: 03/02/17 05:42 03/02/17 05:42 03/02/17 03/02/17 05:42 05:42 WBC 7.6 RBC 3.14 L Hgb 9.6 L D Hct 28.7 L MCV 92 MCH 30.7 MCHC 33.6 RDW 14.9 H Plt Count 253 Seg Neutrophils % 64.0 Lymphocytes % 26.2 Monocytes % 6.8 Eosinophils % 1.5 Basophils % 1.5 Absolute Neutrophils 4.9 Absolute Lymphocytes 2.0 Absolute Monocytes 0.5 Absolute Eosinophils 0.1 Absolute Basophils 0.1 Sodium 141.5 Potassium 3.8 Chloride 108 H Carbon Dioxide 27 Anion Gap 7 BUN 10 Creatinine 0.43 L Est GFR ( Amer) > 60 Est GFR (Non-Af Amer) > 60 Glucose 103 Calcium 9.1 Impressions: Abdomen/Pelvis CT 02/25/17 08:05 IMPRESSION: Small bowel obstruction possibly due to internal hernia right upper quadrant. Surgical consultation is recommended. KUB X-Ray 02/25/17 11:13 IMPRESSION: NG tube distal esophagus. Assessment & Plan - Diagnosis (1) Small bowel obstruction Is this a current diagnosis for this admission?: Yes Plan: The patient's obstruction appears to be improving. Management per surgery (2) GERD (gastroesophageal reflux disease) Is this a current diagnosis for this admission?: Yes (3) Rheumatoid arthritis Is this a current diagnosis for this admission?: Yes Plan: Patient has some swelling in her bilateral wrist. continue her prednisone dose at 40 mg daily for the next 5 days. (4) Malnutrition Is this a current diagnosis for this admission?: Yes Plan: Patient is to advance her diet per surgery's recommendations. - Time Time Spent with patient: 15-24 minutes
--- NOTE | 2017-03-02 17:17 | PDOC PROGRESS REPORT ---
Subjective Progress Note for:: 03/02/17 Subjective:: no pains. Tolerating diet well. Had BM last night Reason For Visit: SMALL BOWEL OBSTRUCTION Physical Exam Vital Signs: Temp Pulse Resp BP Pulse Ox 98.1 F 66 15 113/51 L 95 03/02/17 00:00 03/02/17 00:00 03/02/17 00:00 03/02/17 00:00 03/02/17 00:00 Intake & Output 03/01/17 03/02/17 03/03/17 06:59 06:59 06:59 Intake Total 3551 1900 Balance 3551 1900 Weight 55.9 kg 56.8 kg Exam: abdomen soft and nontender Results Laboratory Results: 03/02/17 05:42 03/02/17 05:42 03/02/17 03/02/17 05:42 05:42 WBC 7.6 RBC 3.14 L Hgb 9.6 L D Hct 28.7 L MCV 92 MCH 30.7 MCHC 33.6 RDW 14.9 H Plt Count 253 Seg Neutrophils % 64.0 Lymphocytes % 26.2 Monocytes % 6.8 Eosinophils % 1.5 Basophils % 1.5 Absolute Neutrophils 4.9 Absolute Lymphocytes 2.0 Absolute Monocytes 0.5 Absolute Eosinophils 0.1 Absolute Basophils 0.1 Sodium 141.5 Potassium 3.8 Chloride 108 H Carbon Dioxide 27 Anion Gap 7 BUN 10 Creatinine 0.43 L Est GFR ( Amer) > 60 Est GFR (Non-Af Amer) > 60 Glucose 103 Calcium 9.1 Impressions: Abdomen/Pelvis CT 02/25/17 08:05 IMPRESSION: Small bowel obstruction possibly due to internal hernia right upper quadrant. Surgical consultation is recommended. KUB X-Ray 02/25/17 11:13 IMPRESSION: NG tube distal esophagus. Assessment & Plan - Plan Summary Plan Summary: SBO resolved. OK to discharge from surgical standpoint
[2017-03-02 18:36] VITALS: BP 113/51
== END 2017-03-02 18:57 | disposition home or self-care (01) | DRG 394 ==
LOC: ER 07:48 → EH 11:04 → 4S 13:26
PROVIDERS: ADMIT Surgery; ATTEND Surgery
DX: K46.0 Unspecified abdominal hernia with obstruction, without gangrene (principal); E46 Unspecified protein-calorie malnutrition; E87.6 Hypokalemia; K21.9 Gastro-esophageal reflux disease without esophagitis; M06.9 Rheumatoid arthritis, unspecified; Z90.49 Acquired absence of other specified parts of digestive tract; Z87.891 Personal history of nicotine dependence; Z79.52 Long term (current) use of systemic steroids; Z79.899 Other long term (current) drug therapy; Z68.22 Body mass index [BMI] 22.0-22.9, adult
CPT/HCPCS: 36415; 74000; 74177; 80048; 80053; 81001; 83690; 83735; 85025; 93005; 93010; 96374; 96376; 99285; J1650; J2405; J3480; J3490; J7030; J7512; S0028; S0164

== ENCOUNTER 2017-11-16 15:57 | Emergency (ER) | payer MEDICARE ==
[2017-11-16] MEDS ORDERED: FENTANYL CITRATE INJ/PF 100 MCG/2 ML AMPUL IV ONE (16:32)
--- NOTE | 2017-11-16 17:39 | ER Document Report ---
ED Medical Screen (RME) - General Chief Complaint: Leg Pain Stated Complaint: KNEE/FOOT SWOLLEN, RIB/BACK PAIN Time Seen by Provider: 11/16/17 16:29 TRAVEL OUTSIDE OF THE [place] IN LAST 30 DAYS: No - HPI Patient complains to provider of: Right foot swelling - Related Data Allergies/Adverse Reactions: No Known Allergies Allergy (Verified 02/25/17 14:50) Past Medical History - Social History Frequency of alcohol use: None Drug Abuse: None Renal/ Medical History: Denies: Hx Peritoneal Dialysis GI Medical History: Reports: Hx Gastroesophageal Reflux Disease Musculoskeltal Medical History: Reports Hx Arthritis - Rheumatoid arthritis Past Surgical History: Reports: Hx Abdominal Surgery - 3 feet of small intestine removed, impacted bowel, Hx Herniorrhaphy - Inguinal hernia repair, Hx Hysterectomy, Hx Orthopedic Surgery - Right Carpal tunnel surgery, Other - Patient reports having a colonoscopy 2 weeks ago with polypectomy 16; - Immunizations Hx Diphtheria, Pertussis, Tetanus Vaccination: Yes History of Influenza Vaccine for 12/2016 - 05/2017 Season: Yes Influenza Administration Date for 12/2016 - 05/2017 Season: 11/24/16 Physical Exam - Vital signs Vitals: Temp Pulse Resp BP Pulse Ox 97.9 F 83 20 149/50 H 99 11/16/17 16:04 11/16/17 16:04 11/16/17 16:04 11/16/17 16:04 11/16/17 16:04 Course - Re-evaluation Re-evalutation: 11/16/17 17:40 82-year-old female presents for unilateral foot swelling has a history of rheumatoid arthritis in the past which responded to steroids. She denies any fevers or chills. On examination the foot does not look overtly cellulitic, as such believe this is likely in line with a reactive arthritis. We will obtain PVL to ensure there is not a clot, will obtain ESR CRP CBC. Patient to be evaluated through the main emergency department given her chronic illness and state. - Vital Signs Vital signs: Temp Pulse Resp BP Pulse Ox 97.9 F 83 20 149/50 H 99 11/16/17 16:04 11/16/17 16:04 11/16/17 16:04 11/16/17 16:04 11/16/17 16:04 - Laboratory Result Diagrams: 11/16/17 17:15 11/16/17 17:15 Doctor's Discharge - Discharge Referrals: CHEN CHOU MD [Primary Care Provider] - Follow up as needed
--- NOTE | 2017-11-16 17:46 | ER Document Report ---
ED General - General Chief Complaint: Leg Pain Stated Complaint: KNEE/FOOT SWOLLEN, RIB/BACK PAIN Time Seen by Provider: 11/16/17 16:29 TRAVEL OUTSIDE OF THE [place] IN LAST 30 DAYS: No - HPI Notes: Patient is an 82-year-old female with a history of rheumatological disease who presents to the ED complaining of swelling to her right foot over the last week that has made it difficult for her to ambulate and walk her dogs at home. Patient has not noticed any redness or red streaks associated. She has been eating and drinking without any difficulties. She is urinating normally and having normal bowel movements. She denies any injury. Patient has not had any other recent illness or trauma. Patient states that she had something similar this past January when she had swelling to her hands, ankles, and received steroids which improved her symptoms. She has no other concerns or complaints. She is not on any blood thinners. Denies any drug allergies. Denies any headache, fever, URI, sore throat, chest pain, palpitations, syncope, cough, shortness of breath, wheeze, dyspnea, abdominal pain, nausea/vomiting/diarrhea, urinary retention, dysuria, hematuria, loss of control of bowel or bladder, numbness/tingling, muscle paralysis/weakness, or rash. - Related Data Allergies/Adverse Reactions: No Known Allergies Allergy (Verified 02/25/17 14:50) Past Medical History - Social History Smoking Status: Former Smoker Frequency of alcohol use: None Drug Abuse: None Family History: CAD, CVA, DM, Malignancy Patient has suicidal ideation: No Patient has homicidal ideation: No Renal/ Medical History: Denies: Hx Peritoneal Dialysis GI Medical History: Reports: Hx Gastroesophageal Reflux Disease Musculoskeletal Medical History: Reports Hx Arthritis - Rheumatoid arthritis Past Surgical History: Reports: Hx Abdominal Surgery - 3 feet of small intestine removed, impacted bowel, Hx Herniorrhaphy - Inguinal hernia repair, Hx Hysterectomy, Hx Orthopedic Surgery - Right Carpal tunnel surgery, Other - Patient reports having a colonoscopy 2 weeks ago with polypectomy 16; - Immunizations Hx Diphtheria, Pertussis, Tetanus Vaccination: Yes Hx Pneumococcal Vaccination: 01/10/16 Review of Systems - Review of Systems -: Yes All other systems reviewed and negative Physical Exam - Vital signs Vitals: Temp Pulse Resp BP Pulse Ox 97.9 F 83 20 149/50 H 99 11/16/17 16:04 08/24/18 16:04 11/16/17 16:04 11/16/17 16:04 11/16/17 16:04 - Notes Notes: PHYSICAL EXAMINATION: GENERAL: Well-appearing, well-nourished and in no acute distress. A&ox4. Answers questions appropriately. LUNGS: Breath sounds clear to auscultation bilaterally and equal. No wheezes rales or rhonchi. HEART: Regular rate and rhythm without murmurs, rubs, gallops. Musculoskeletal: Rt foot/ankle: LROM to passive/active dorsiflexoin due to swelling. Strength 5+/5. N/V intact distal. No bony tenderness of the foot. Achilles intact. No erythema, ecchymosis, opening in the skin, streaks, excessive warmth, or discharge noted. No foot drop. Extremities: 1-2+ pitting edema b/l feet. Peripheral pulses 2+. Capillary refill less than 3 seconds. NEUROLOGICAL: Normal speech, limping gait. Normal sensory, motor exams PSYCH: Normal mood, normal affect. SKIN: see above. Warm, Dry, normal turgor, no rashes or lesions noted. Course - Re-evaluation Re-evalutation: 11/16/17 18:[address] Schwartz: Patient is an afebrile, well-hydrated, 82-year-old female who presents to the ED with what appears to be a rheumatological inflammatory condition based on her H&P today as well as asymptomatic hypokalemia. Vitals are acceptable without significant tachycardia, tachypnea, or hypoxia. PE is otherwise unremarkable for any neurovascular compromise, obvious tendon/ligament rupture, obvious fracture/dislocation, septic joint. Venous Doppler bilaterally were unremarkable for acute pathology. CBC and CMP were unremarkable for any acute pathology aside from the hypokalemia at 3.0 (pt given 60meq KCl PO). ESR and CRP were elevated, but they have been elevated in the past for the same condition. Patient is tolerating p.o. without difficulties and is nontoxic- appearing. She does not appear ill. Patient is able to ambulate and weight- bear, but does have a limp on the right side. Solu-Medrol given IM today as well as Toradol. I will be sending her home with a prescription for a steroid taper. No other labs or imaging warranted at this time based on H&P. I did review with the patient why Dr. Mart and myself do not believe this to be cellulitis at this time w. no fever, erythema, warmth, or elevated WBC. I did review that she will need to monitor closely for any development of fever, streaks, erythema, excessive warmth, or other evidence of infection and she needs to return to the ED if noticing any of the signs/symptoms. Low suspicion for any other sepsis, meningitis, severe dehydration, DVT. I will be sending her home with KCl to take once daily for 3 days with an outpatient lab for her K + to get rechecked as she is in between PCM's. Conservative measures for symptoms. Recheck/Establish with a PCM in 3-5 days. Return to the ED with any other worsening/concerning symptoms otherwise as reviewed in discharge. Patient is in agreement. - Vital Signs Vital signs: Temp Pulse Resp BP Pulse Ox 97.9 F 83 20 149/50 H 99 11/16/17 16:04 11/16/17 16:04 11/16/17 16:04 11/16/17 16:04 11/16/17 16:04 - Laboratory Result Diagrams: 11/16/17 17:15 11/16/17 17:15 Laboratory results interpreted by me: 11/16/17 11/16/17 17:15 17:15 RBC 3.71 L Hgb 11.9 L Hct 34.1 L ESR 75 H Potassium 3.0 L* Carbon Dioxide 34 H Creatinine 0.44 L C-Reactive Protein 31.7 H Albumin 3.2 L Discharge - Discharge Clinical Impression: Hypokalemia, Swelling of lower extremity Condition: Stable Disposition: HOME, SELF-CARE Instructions: Hypokalemia ([facility]) Additional Instructions: Rest, Ice, Compression, Elevation Tylenol/ibuprofen as needed Light stretches daily Strength exercises as able Moist heat and massage may help Establish with a PCP in 3-5 days for a recheck Have your potassium rechecked on Sunday. take potassium as directed. Consider consult(s) with Orthopedics/physical therapy for ongoing/worsening symptoms Return to the ED with any worsening symptoms and/or development of fever, headache, chest pain, palpitations, syncope, shortness of breath, trouble breathing, abdominal pain, n/v/d, muscle weakness/paralysis, numbness/tingling, swelling, redness, or other worsening symptoms that are concerning to you. Prescriptions: Potassium Chloride 10 meq PO DAILY #5 capsule.er Prednisone 20 mg PO ASDIR #18 tablet Forms: Elevated Blood Pressure, Follow-Up Laboratory Testing Referrals: [facility] [Provider Group] - Follow up as needed [facility] [Provider Group] - Follow up as needed
[2017-11-16 17:50] LABS: ABSOLUTE EOSINOPHILS # (AUTO) 0.1 10^3/uL (0.0-0.6); ABSOLUTE LYMPHOCYTES (AUTO) 1.5 10^3/uL (0.5-4.7); ABSOLUTE MONOCYTES (AUTO) 0.7 10^3/uL (0.1-1.4); ABSOLUTE NEUT (AUTO) 6.9 10^3/uL (1.7-8.2); BASOPHILS % (AUTO) 0.2 % (0-2); EOSINOPHILS % (AUTO) 0.9 % (0-6); HEMATOCRIT 34.1 % (36.0-47.0); HEMOGLOBIN 11.9 g/dL (12.0-15.5); LYMPHOCYTES % (AUTO) 16.6 % (13-45); MEAN CORPUSCULAR HEMOGLOBIN 32.1 pg (27.0-33.4); MEAN CORPUSCULAR HGB CONC 34.9 g/dL (32.0-36.0); MEAN CORPUSCULAR VOLUME 92 fl (80-97); MONOCYTES % (AUTO) 7.9 % (3-13); PLATELET COUNT 438 10^3/uL (150-450); RED BLOOD COUNT 3.71 10^6/uL (3.72-5.28); RED CELL DISTRIBUTION WIDTH 13.5 % (11.5-14.0); SEGMENTED NEUTROPHILS % (AUTO) 74.4 % (42-78); TOTAL CELLS COUNTED % (AUTO) 100 %; WHITE BLOOD COUNT 9.2 10^3/uL (4.0-10.5)
--- NOTE | 2017-11-16 18:07 | RADIOLOGY REPORT (SQ) ---
EXAM DESCRIPTION: VENOUS BILATERAL LOWER COMPLETED DATE/TIME: 11/16/2017 5:59 pm REASON FOR STUDY: concern for dvt COMPARISON: None. TECHNIQUE: Dynamic and static hall scale and color images acquired of both lower extremity venous sy stems. Selected spectral images acquired with additional compression and augmentation maneuvers. Imag es stored on PACS. LIMITATIONS: None. FINDINGS: RIGHT LEG COMMON FEMORAL AND FEMORAL: Normal phasicity, compression and augmentation. No visualized echogenic m aterial on hall scale. No defects on color images. POPLITEAL: Normal compression and augmentation. No visualized echogenic material on hall scale. No de fects on color images. CALF VESSELS: Normal compression and augmentation. No visualized echogenic material on hall scale. No defects on color image. GSV AND SSV: Normal compression. No visualized echogenic material on hall scale. No defects on color images. ANY DEEP VENOUS INSUFFICIENCY: Not evaluated. ANY EVIDENCE OF POPLITEAL CYST: No. OTHER: No other significant finding. LEFT LEG COMMON FEMORAL AND FEMORAL: Normal phasicity, compression and augmentation. No visualized echogenic m aterial on hall scale. No defects on color images. POPLITEAL: Normal compression and augmentation. No visualized echogenic material on hall scale. No de fects on color images. CALF VESSELS: Normal compression and augmentation. No visualized echogenic material on hall scale. No defects on color images. GSV AND SSV: Normal compression. No visualized echogenic material on hall scale. No defects on color images. ANY DEEP VENOUS INSUFFICIENCY: Not evaluated. ANY EVIDENCE POPLITEAL CYST: No. OTHER: No other significant finding. IMPRESSION: NO EVIDENCE DVT OR SVT IN EITHER LEG. TECHNICAL DOCUMENTATION: JOB ID: [id number]- All Rights Reserved Reading location - IP/workstation name: [email or web address]
[2017-11-16 18:13] LABS: ALANINE AMINOTRANSFERASE 19 U/L (9-52); ALBUMIN 3.2 g/dL (3.5-5.0); ALKALINE PHOSPHATASE 82 U/L (38-126); ANION GAP 11 (5-19); ASPARTATE AMINO TRANSFERASE 18 U/L (14-36); BILIRUBIN,DIRECT 0.4 mg/dL (0.0-0.4); BILIRUBIN,TOTAL 0.8 mg/dL (0.2-1.3); BLOOD UREA NITROGEN 15 mg/dL (7-20); C-REACTIVE PROTEIN 31.7 mg/L (<10.0); CALCIUM 9.8 mg/dL (8.4-10.2); CARBON DIOXIDE 34 mmol/L (22-30); CHLORIDE 98 mmol/L (98-107); GLUCOSE 88 mg/dL (75-110); SODIUM 142.5 mmol/L (137-145); TOTAL PROTEIN 6.7 g/dL (6.3-8.2)
[2017-11-16] MEDS ORDERED: POTASSIUM CHLORIDE 10 MEQ CAPSULE.ER PO ONE (18:25)
[2017-11-16] MEDS ORDERED: MAGNESIUM OXIDE 400 MG TABLET PO ONE (18:26)
[2017-11-16 18:31] LABS: ERYTHROCYTE SEDIMENTATION RATE 75 mm/hr (0-30)
[2017-11-16] MEDS ORDERED: KETOROLAC TROMETHAMINE INJ/PF 30 MG/1 ML SDV IM ONE (18:55)
[2017-11-16] MEDS ORDERED: METHYLPREDNISOLONE INJ 125 MG/2 ML SDV IM ONE (18:55)
[2017-11-16 19:35] VITALS: BP 155/58
== END 2017-11-16 19:36 | disposition home or self-care (01) ==
LOC: ER 15:57
DX: M06.9 Rheumatoid arthritis, unspecified (principal); E87.6 Hypokalemia; R60.0 Localized edema; R26.89 Other abnormalities of gait and mobility; Z87.891 Personal history of nicotine dependence
CPT/HCPCS: 99284; 96372; 96374; 36415; 85025; 85652; 86140; 80053; 93970; A9270 ×2; J3010; J2930; J1885

== ENCOUNTER → 2017-11-19 | Outpatient (CLI) | payer MEDICARE ==
[2017-11-19 11:42] LABS: POTASSIUM 3.1 mmol/L (3.6-5.0)
== END ==
LOC: LAB 10:43
PROVIDERS: ATTEND Physician Assistant Medical
DX: E87.6 Hypokalemia (principal)
CPT/HCPCS: 36415; 83735; 84132

== ENCOUNTER 2017-12-29 16:15 | Emergency (ER) | payer MEDICARE ==
--- NOTE | 2017-12-29 17:32 | RADIOLOGY REPORT (SQ) ---
EXAM DESCRIPTION: WRIST RIGHT 3 VIEWS COMPLETED DATE/TIME: 12/29/2017 5:05 pm REASON FOR STUDY: fall, right wrist pain COMPARISON: None. NUMBER OF VIEWS: Three views. TECHNIQUE: AP, lateral, and oblique radiographic images acquired of the right wrist. LIMITATIONS: None. FINDINGS: MINERALIZATION: Osteopenic BONES: Acute comminuted nonangulated nondisplaced distal right radius fracture with intra-articular e xtension. Remainder of the right wrist is otherwise unremarkable SOFT TISSUES: Right wrist soft tissue swelling. No foreign body. OTHER: No other significant finding. IMPRESSION: Acute comminuted nonangulated nondisplaced distal right radius fracture with intra-artic ular extension TECHNICAL DOCUMENTATION: JOB ID: [id number] [employer] All Rights Reserved Reading location - IP/workstation name: [email or web address]
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
== END 2017-12-29 19:36 | disposition home or self-care (01) ==
LOC: ER 16:15
PROC: 2W3CX1Z Immobilization of Right Lower Arm using Splint (ICD-10-PCS; principal; 2017-12-29)
DX: S52.591A Other fractures of lower end of right radius, initial encounter for closed fracture (principal); M25.531 Pain in right wrist; W01.0XXA Fall on same level from slipping, tripping and stumbling without subsequent striking against object, initial encounter
CPT/HCPCS: 99283

== ENCOUNTER → 2018-06-13 | Outpatient (CLI) | payer MEDICARE ==
--- NOTE | 2018-06-13 13:00 | RADIOLOGY REPORT (SQ) ---
EXAM DESCRIPTION: ANKLE LEFT AP/LATERAL COMPLETED DATE/TIME: 06/13/2018 11:38 am REASON FOR STUDY: PAIN IN LEFT ANKLE AND JOINTS OF LEFT FOOT M25.562 PAIN IN LEFT KNEE M25.572 WILL N IN LEFT ANKLE AND JOINTS OF LEFT FOOT M25.552 PAIN IN LEFT HIP COMPARISON: None. NUMBER OF VIEWS: Two views. TECHNIQUE: AP and lateral radiographic images acquired of the left ankle. LIMITATIONS: None. FINDINGS: MINERALIZATION: Normal. BONES: No acute fracture or dislocation. No worrisome bone lesions. JOINTS: No effusions. Talotibial joint intact. SOFT TISSUES: Generalized soft tissue swelling OTHER: Large plantar heel spur. IMPRESSION: Soft tissue swelling. Large plantar heel spur. TECHNICAL DOCUMENTATION: JOB ID: [id number] [employer]- All Rights Reserved Reading location - IP/workstation name: [email or web address]
--- NOTE | 2018-06-13 13:02 | RADIOLOGY REPORT (SQ) ---
EXAM DESCRIPTION: KNEE LEFT 2 VIEWS COMPLETED DATE/TIME: 06/13/2018 11:38 am REASON FOR STUDY: PAIN IN LT KNEE M25.562 PAIN IN LEFT KNEE M25.572 PAIN IN LEFT ANKLE AND JOINTS OF LEFT FOOT M25.552 PAIN IN LEFT HIP COMPARISON: None. NUMBER OF VIEWS: Two views. TECHNIQUE: AP and lateral radiographic images acquired of the left knee. LIMITATIONS: None. FINDINGS: MINERALIZATION: Mild osteopenia BONES: No acute fracture or dislocation. No worrisome bone lesions. No significant osteophytes. JOINT: No effusion. Mild degenerative compromise of the knee joint compartments associated minimal h ypertrophic spurring. Moderate degenerative narrowing of the patellofemoral joint. OTHER: No other significant finding. IMPRESSION: Degenerative changes. See above discussion. TECHNICAL DOCUMENTATION: JOB ID: [id number] [employer]- All Rights Reserved Reading location - IP/workstation name: [email or web address]
--- NOTE | 2018-06-13 13:03 | RADIOLOGY REPORT (SQ) ---
EXAM DESCRIPTION: HIP LEFT AP/LATERAL COMPLETED DATE/TIME: 06/13/2018 11:38 am REASON FOR STUDY: PAIN IN LT HIP M25.562 PAIN IN LEFT KNEE M25.572 PAIN IN LEFT ANKLE AND JOINTS O F LEFT FOOT M25.552 PAIN IN LEFT HIP COMPARISON: None. NUMBER OF VIEWS: Two views. TECHNIQUE: AP pelvis and additional frog-leg view of the left hip. LIMITATIONS: None. FINDINGS: MINERALIZATION: Normal. LEFT HIP: No fracture or dislocation. No worrisome bone lesions. No contour deformity. No joint spa ce narrowing. RIGHT HIP: No fracture or dislocation. No worrisome bone lesions. PUBIS AND ISCHIUM: No fracture. PELVIS: No fracture. SACRUM: No fracture or dislocation. No worrisome bone lesions. LOWER LUMBAR SPINE: No fracture or dislocation. No worrisome bone lesions. No significant disc disea se. SOFT TISSUES: No findings. OTHER: No other significant finding. IMPRESSION: NEGATIVE STUDY OF THE LEFT HIP AND PELVIS. NO EXPLANATION FOR PAIN. TECHNICAL DOCUMENTATION: JOB ID: [id number] [employer] All Rights Reserved Reading location - IP/workstation name: [email or web address]
== END ==
LOC: OD 11:07
PROVIDERS: ATTEND Internal Medicine
DX: M25.562 Pain in left knee (principal); M25.572 Pain in left ankle and joints of left foot; M25.552 Pain in left hip

== ENCOUNTER 2019-05-24 00:19 | Inpatient (IN) | payer MEDICARE ==
[2019-05-24 01:26] LABS: ABSOLUTE LYMPHOCYTES (AUTO) 1.7 10^3/uL (0.5-4.7); ABSOLUTE MONOCYTES (AUTO) 0.4 10^3/uL (0.1-1.4); ABSOLUTE NEUT (AUTO) 4.4 10^3/uL (1.7-8.2); BASOPHILS % (AUTO) 0.4 % (0-2); EOSINOPHILS % (AUTO) 0.3 % (0-6); HEMATOCRIT 37.6 % (36.0-47.0); HEMOGLOBIN 12.7 g/dL (12.0-15.5); MEAN CORPUSCULAR HGB CONC 33.9 g/dL (32.0-36.0); MEAN CORPUSCULAR VOLUME 95 fl (80-97); MONOCYTES % (AUTO) 6.5 % (3-13); PLATELET COUNT 322 10^3/uL (150-450); RED BLOOD COUNT 3.97 10^6/uL (3.72-5.28); RED CELL DISTRIBUTION WIDTH 14.5 % (11.5-14.0); SEGMENTED NEUTROPHILS % (AUTO) 66.8 % (42-78); TOTAL CELLS COUNTED % (AUTO) 100 %; WHITE BLOOD COUNT 6.5 10^3/uL (4.0-10.5)
[2019-05-24 01:31] LABS: ALBUMIN 3.8 g/dL (3.5-5.0); ALKALINE PHOSPHATASE 103 U/L (38-126); ANION GAP 10 (5-19); ASPARTATE AMINO TRANSFERASE 30 U/L (14-36); BILIRUBIN,DIRECT 0.3 mg/dL (0.0-0.4); BILIRUBIN,TOTAL 0.6 mg/dL (0.2-1.3); BLOOD UREA NITROGEN 15 mg/dL (7-20); CALCIUM 9.5 mg/dL (8.4-10.2); CARBON DIOXIDE 29 mmol/L (22-30); CHLORIDE 103 mmol/L (98-107); GLUCOSE 181 mg/dL (75-110); TOTAL PROTEIN 7.4 g/dL (6.3-8.2)
[2019-05-24 01:34] LABS: POTASSIUM 2.9 mmol/L (3.6-5.0)
[2019-05-24] MEDS ORDERED: ONDANSETRON HCL INJ/PF 4 MG/2 ML SDV IV ONE (01:43)
[2019-05-24] MEDS ORDERED: RINGERS SOLUTION,LACTATED 1,000 ML IV ONE (01:43)
[2019-05-24] MEDS ORDERED: FENTANYL CITRATE INJ/PF 100 MCG/2 ML AMPUL IV ONE (01:43)
--- NOTE | 2019-05-24 03:26 | RADIOLOGY REPORT (SQ) ---
EXAM: CT Abdomen and Pelvis With Intravenous Contrast EXAM DATE/TIME: 05/24/2019 2:36 AM CLINICAL HISTORY: The patient is 84 years old and is Female; abd pain TECHNIQUE: Axial computed tomography images of the abdomen and pelvis with intravenous contrast. Sagittal and coronal reformatted images were created and reviewed. Delayed images were obtained. This CT exam was performed using one or more of the following dose reduction techniques: automated exposure control, adjustment of the mA and/or kV according to patient size, and/or use of iterative reconstruction technique. COMPARISON: CT abdomen pelvis from 03/09/2019 FINDINGS: LUNG BASES: Minimal bibasilar atelectasis or scarring. MEDIASTINUM: Small amount of fluid in the distal esophagus. ABDOMEN: LIVER: Unremarkable. No obvious mass. GALLBLADDER AND BILE DUCTS: Mild gallbladder distention. No calcified gallstones or gallbladder wall thickening. No biliary ductal dilatation. PANCREAS: Unremarkable. No ductal dilation. No obvious mass. SPLEEN: Unremarkable. No splenomegaly. ADRENALS: Unremarkable. No adrenal nodules or masses identified. KIDNEYS AND URETERS: Left renal cysts. No solid renal mass visualized. No hydronephrosis. STOMACH AND BOWEL: The proximal stomach is mildly distended with fluid. A duodenal diverticulum is noted. There is mild to moderate dilatation of multiple small bowel loops, most prominent distally. In the right hemiabdomen, there is an area of twisting mesenteric vessels as well as twisting and narrowing of several small bowel loops including the terminal ileum. There is evidence of associated small bowel obstruction related to the terminal ileum twisting. Possible additional areas of obstruction more anteriorly in the right hemiabdomen. Findings are likely related to internal hernia or small bowel volvulus. The colon is normal in caliber. There is sigmoid diverticulosis without evidence of diverticulitis. PELVIS: APPENDIX: No findings to suggest acute appendicitis. BLADDER: Unremarkable. No obvious mass. REPRODUCTIVE: Unremarkable as visualized. ABDOMEN and PELVIS: INTRAPERITONEAL SPACE: Trace free fluid in the upper abdomen and within the pelvis. This is slightly decreased compared to the prior study. There is no abscess. No free air visualized. BONES/JOINTS: No acute fracture. No dislocation. SOFT TISSUES: There is diffuse mesenteric edema. VASCULATURE: Atherosclerotic calcifications are noted. No aortic aneurysm. There is focal twisting of mesenteric vessels in the midabdomen as described above. Portion of the SMV is twisted (series 3, images 45 through 48), resulting in severe narrowing of the SMV at this level. A similar appearance is seen on the prior study. LYMPH NODES: No significant lymph node enlargement. IMPRESSION: 1. Small bowel obstruction with suggestion of underlying internal hernia or small bowel volvulus as described above. There is also associated twisting of the SMV, which demonstrates significant narrowing. 2. Trace free fluid in the abdomen and within the pelvis. This is slightly decreased compared to the prior study. 3. Small amount of fluid in the distal esophagus.
--- NOTE | 2019-05-24 03:43 | ER Document Report ---
ED GI/ - General Chief Complaint: Abdominal Swelling Stated Complaint: POSSIBLE INTESTINE BLOCKAGE Time Seen by Provider: 05/24/19 01:31 Mode of Arrival: Wheelchair Information source: Patient, Relative Notes: Patient presents stating that Sunday morning she had abdominal cramping with diarrhea. Patient states that gradually the pain worsened and she started to have nausea and vomiting x2 episodes. Patient denies any fever. Patient states that she felt like earlier in the week she had a stomach virus but the pain symptoms started to develop. Patient states that she has a history of bowel obstruction that has required previous bowel resections in the past and is concerned that she is having another bowel obstruction today. Patient reports abdominal distention and tenderness. TRAVEL OUTSIDE OF THE [place] IN LAST 30 DAYS: No - HPI Patient complains to provider of: Abdominal pain, Dysuria, Vomiting Onset: This afternoon Timing/Duration: Worse Quality of pain: Sharp Pain Level: 5 Location: Other - Generalized abdomen Associated symptoms: Diarrhea, Nausea, Vomiting. denies: Urinary hesitancy, Urinary frequency, Urinary retention, Vaginal discharge Exacerbated by: Movement Relieved by: Denies Similar symptoms previously: Yes Recently seen / treated by doctor: No - Related Data Allergies/Adverse Reactions: No Known Allergies Allergy (Verified 03/09/19 09:15) Home Medications: pt in too much pain Past Medical History - General Information source: Patient, Relative - Social History Smoking Status: Never Smoker Frequency of alcohol use: None Drug Abuse: None Lives with: Family Family History: CAD, CVA, DM, Malignancy Patient has suicidal ideation: No Patient has homicidal ideation: No - Past Medical History Cardiac Medical History: Reports: Hx Hypertension Renal/ Medical History: Denies: Hx Peritoneal Dialysis GI Medical History: Reports: Hx Gastroesophageal Reflux Disease Musculoskeletal Medical History: Reports Hx Arthritis - Rheumatoid arthritis Past Surgical History: Reports: Hx Abdominal Surgery - 3 feet of small intestine removed, impacted bowel, Hx Herniorrhaphy - Inguinal hernia repair, Hx Hysterectomy, Hx Orthopedic Surgery - Right Carpal tunnel surgery, Other - Patient reports having a colonoscopy 2 weeks ago with polypectomy 16; - Immunizations Hx Diphtheria, Pertussis, Tetanus Vaccination: Yes Hx Pneumococcal Vaccination: 01/10/16 Review of Systems - Review of Systems Constitutional: No symptoms reported. denies: Fever EENT: No symptoms reported Cardiovascular: No symptoms reported. denies: Chest pain Respiratory: No symptoms reported Gastrointestinal: Abdominal pain, Diarrhea, Nausea, Vomiting. denies: Rectal bleeding Genitourinary: No symptoms reported Female Genitourinary: No symptoms reported Musculoskeletal: No symptoms reported. denies: Back pain Skin: No symptoms reported Hematologic/Lymphatic: No symptoms reported Neurological/Psychological: No symptoms reported Physical Exam - Vital signs Vitals: Temp Pulse Resp BP Pulse Ox 97.7 F 88 28 H 168/105 H 99 05/24/19 00:24 05/24/19 00:24 05/24/19 00:24 05/24/19 00:24 05/24/19 00:24 - General General appearance: Alert In distress: Moderate - HEENT Head: Normocephalic Eyes: Normal Nasal: Normal Mouth/Lips: Normal Neck: Normal, Supple. No: Lymphadenopathy - Respiratory Respiratory status: No respiratory distress Chest status: Nontender Breath sounds: Normal. No: Rales, Rhonchi, Stridor, Wheezing Chest palpation: Normal - Cardiovascular Rhythm: Regular Heart sounds: S1 appreciated, S2 appreciated - Abdominal Distension: Distended Bowel sounds: Hypoactive Tenderness: Tender, Guarding Organomegaly: No organomegaly - Back Back: Normal, Nontender. No: CVA tenderness - Extremities General upper extremity: Normal inspection, Normal ROM General lower extremity: Normal inspection, Normal ROM - Neurological Neuro grossly intact: Yes Cognition: Normal Phillip Coma Scale Eye Opening: Spontaneous Phillip Coma Scale Verbal: Oriented [place] Coma Scale Motor: Obeys Commands Phillip Coma Scale Total: 15 - Psychological Associated symptoms: Normal affect, Normal mood - Skin Skin Temperature: Warm Skin Moisture: Dry Skin Color: Normal Course - Re-evaluation Re-evalutation: 05/24/19 03:[address] scan results, consulted with Dr. Sanchez who agrees to come and evaluate patient. Patient presently resting quietly with eyes closed. Oxygen saturation dipped to 89 while sleeping, oxygen applied at 2 L. Oxygen saturation then increased to 97%. 05/24/19 03:40 Dr. Sanchez to bedside for examination. Dr. Sanchez plans to take patient to the OR and admit her to the hospital. 05/24/19 03:47 Consulted with patient's primary doctor Dr. Martell advising him of patient's admission to the hospital and need for medical consultation. 05/24/19 07:37 - Vital Signs Vital signs: Temp Pulse Resp BP Pulse Ox 97.5 F 63 14 115/41 L 96 05/24/19 06:20 05/24/19 07:00 05/24/19 07:00 05/24/19 07:00 05/24/19 07:00 - Laboratory Result Diagrams: 05/24/19 00:55 05/24/19 00:55 Laboratory results interpreted by me: 05/24/19 05/24/19 05/24/19 00:55 00:55 00:55 RDW 14.5 H Potassium 2.9 L* Glucose 181 H Magnesium 0.9 L* - Diagnostic Test Radiology reviewed: Image reviewed, Reports reviewed Discharge - Discharge Clinical Impression: Small bowel obstruction, Hypokalemia, Hypomagnesemia Abdominal pain Qualifiers: Abdominal location: unspecified location Qualified Code(s): R10.9 - Unspecified abdominal pain Condition: Critical Disposition: ADMITTED INPATIENT Admitting Provider: Surgicalist Unit Admitted: Surgical Floor
[2019-05-24] MEDS ORDERED: CEFAZOLIN 1 GM/D5W RTU 1 GM/50 ML RTUPB IV ONE (03:52)
[2019-05-24] MEDS ORDERED: METRONIDAZOLE 500 MG/NS RTU 500 MG/100 ML RTUPB IV ONE (03:52)
--- NOTE | 2019-05-24 04:08 | PDOC H&P ---
History of Present Illness Admission Date/PCP: PIEDAD SMYTH MD Patient complains of: abdominal pain History of Present Illness: NARENDRA PAPPAS is a 84 year old femalePatient presents stating that Lucian morning she had abdominal cramping with diarrhea. Patient states that gradually the pain worsened and she started to have nausea and vomiting x2 episodes. Patient denies any fever. Patient states that she felt like earlier in the week she had a stomach virus but the pain symptoms started to develop. Patient states that she has a history of bowel obstruction that has required previous bowel resections in the past and is concerned that she is having another bowel obstruction today. Patient reports abdominal distention and tenderness. Past Medical History GI Medical History: Reports: Gastroesophageal Reflux Disease, Other - multiple previous sbo's and previous small bowel resection Musculoskeltal Medical History: Reports: Arthritis - Rheumatoid arthritis Psychiatric Medical History: Reports: None Past Surgical History Past Surgical History: Reports: Herniorrhaphy - Inguinal hernia repair, Hysterectomy, Orthopedic Surgery - Right Carpal tunnel surgery, Other - Patient reports having a colonoscopy 2 weeks ago with polypectomy 16;, sbo Social History Smoking Status: Never Smoker Frequency of Alcohol Use: None Hx Recreational Drug Use: No Drugs: None Hx Prescription Drug Abuse: No Family History Family History: CAD, CVA, DM, Malignancy Parental Family History Reviewed: No Children Family History Reviewed: NA Sibling(s) Family History Reviewed.: NA Medication/Allergy Home Medications: Cholecalciferol (Vitamin D3) [Vitamin D3 1000 Unit Tablet] 1,000 unit PO DAILY 02/25/17 Naproxen [Naprosyn] 500 mg PO BID 02/25/17 [place]-3 Fatty Acids/Fish Oil [Fish Oil 1,000 mg Capsule] 1 cap PO DAILY 02/25/17 Omeprazole 20 mg PO DAILY 02/25/17 Potassium Chloride 10 meq PO DAILY #5 capsule.er 11/16/17 Allergies/Adverse Reactions: No Known Allergies Allergy (Verified 03/09/19 09:15) Review of Systems Constitutional: PRESENT: weakness Eyes: ABSENT: as per HPI, visual disturbances, other Ears: ABSENT: as per HPI, hearing changes, other Nose, Mouth, and Throat: ABSENT: as per HPI, headache(s), mouth pain, sore throat, vertigo, other Breasts: ABSENT: as per HPI, other Cardiovascular: ABSENT: as per HPI, chest pain, dyspnea on exertion, edema, orthropnea, palpitations, other Respiratory: ABSENT: as per HPI, cough, dyspnea, hemoptysis, sputum, other Gastrointestinal: PRESENT: abdominal pain, nausea, vomiting Genitourinary: ABSENT: as per HPI, difficulty urinating, dysuria, hematuria, nocturia, other Musculoskeletal: ABSENT: as per HPI, back pain, deformity, joint swelling, muscle weakness, other Integumentary: ABSENT: as per HPI, diaphoresis, erythema, lesions, pruritus, r kaushik, wounds, other Neurological: ABSENT: as per HPI, abnormal gait, abnormal movements, abnormal speech, confusion, convulsions, dizziness, focal weakness, frequent falls, lack of coordination, memory loss, numbness, paresthesias, restless legs, syncope, tingling, tremor(s), vertigo, weakness, other Endocrine: ABSENT: as per HPI, cold intolerance, flushing, heat intolerance, menstrual abnormalities, polydipsia, polyphagia, polyuria, other Hematologic/Lymphatic: ABSENT: as per HPI, easy bleeding, easy bruising, lymphadenopathy, other Allergic/Immunologic: ABSENT: as per HPI, seasonal rhinorrhea, other Physical Exam Vital Signs: Temp Pulse Resp BP Pulse Ox 97.7 F 88 28 H 168/105 H 99 05/24/19 00:24 05/24/19 00:24 05/24/19 00:24 05/24/19 00:24 05/24/19 00:24 Intake & Output 05/22/19 05/23/19 05/24/19 06:59 06:59 06:59 Weight 52.163 kg General appearance: PRESENT: mild distress Head exam: PRESENT: normocephalic Eye exam: PRESENT: EOMI Ear exam: PRESENT: TM's normal bilaterally Mouth exam: PRESENT: dry mucosa Neck exam: PRESENT: full ROM Respiratory exam: PRESENT: clear to auscultation tonya Cardiovascular exam: PRESENT: RRR Pulses: PRESENT: normal radial pulses, normal femoral pulses Vascular exam: PRESENT: normal capillary refill GI/Abdominal exam: PRESENT: diminished bowel sounds, distended, firm, guarding Rectal exam: PRESENT: deferred Gentrourinary exam: PRESENT: other Extremities exam: PRESENT: full ROM Musculoskeletal exam: PRESENT: full ROM Neurological exam: PRESENT: alert, awake, oriented to person, oriented to place Psychiatric exam: PRESENT: appropriate affect Skin exam: PRESENT: dry Results Laboratory Results: 05/24/19 00:55 05/24/19 00:55 05/24/19 05/24/19 05/24/19 00:55 00:55 00:55 WBC 6.5 RBC 3.97 Hgb 12.7 Hct 37.6 MCV 95 MCH 32.0 MCHC 33.9 RDW 14.5 H Plt Count 322 Seg Neutrophils % 66.8 Sodium 142.3 Potassium 2.9 L* Chloride 103 Carbon Dioxide 29 Anion Gap 10 BUN 15 Creatinine 0.55 Est GFR ( Amer) > 60 Glucose 181 H Lactic Acid 1.7 Calcium 9.5 Magnesium Total Bilirubin 0.6 AST 30 Alkaline Phosphatase 103 Total Protein 7.4 Albumin 3.8 Lipase 68.0 05/24/19 00:55 WBC RBC Hgb Hct MCV MCH MCHC RDW Plt Count Seg Neutrophils % Sodium Potassium Chloride Carbon Dioxide Anion Gap BUN Creatinine Est GFR ( Amer) Glucose Lactic Acid Calcium Magnesium 0.9 L* Total Bilirubin AST Alkaline Phosphatase Total Protein Albumin Lipase Impressions: Abdomen/Pelvis CT 05/24/19 01:45 IMPRESSION: 1. Small bowel obstruction with suggestion of underlying internal hernia or small bowel volvulus as described above. There is also associated twisting of the SMV, which demonstrates significant narrowing. 2. Trace free fluid in the abdomen and within the pelvis. This is slightly decreased compared to the prior study. 3. Small amount of fluid in the distal esophagus. 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 the risk of injury to adjacent organs, bleeding, infection and possible has been discussed and agree to proceed.
[2019-05-24] MEDS ORDERED: FENTANYL CITRATE INJ/PF 100 MCG/2 ML AMPUL ONE (04:25)
[2019-05-24] MEDS ORDERED: MIDAZOLAM 2 MG/2 ML INJ ONE (04:25)
[2019-05-24] MEDS ORDERED: DEXAMETHASONE SOD PHOSPHATE INJ 4 MG/1 ML VIAL ONE (04:25)
[2019-05-24] MEDS ORDERED: ONDANSETRON HCL INJ/PF 4 MG/2 ML SDV ONE (04:25)
[2019-05-24] MEDS ORDERED: PROPOFOL INJ 200 MG/20 ML VIAL IV ONE (04:26)
[2019-05-24] MEDS ORDERED: BUPIVACAINE HCL 0.5%-EPI 1:200000 INJ/PF 30 ML VIAL ONE (04:42)
[2019-05-24] MEDS: POTASSI CL 20 MEQ/50 ML RIDER 20 MEQ/50 ML RTUPB IV SCH (04:58)
[2019-05-24] MEDS: MAGNESIUM SULFATE/D5W 1 GM/100 ML RTUPB IV SCH (04:58)
[2019-05-24] MEDS ORDERED: DEXTROSE 40% GEL 15 GM TUBE PO PRN ×2 (06:03)
[2019-05-24] MEDS ORDERED: DEXTROSE 50%-WATER 25 GM/50 ML DISP.SYRIN IV PRN ×2 (06:03)
[2019-05-24] MEDS ORDERED: ONDANSETRON HCL INJ/PF 4 MG/2 ML SDV IV PRN ×2 (06:03→06:21)
[2019-05-24] MEDS ORDERED: GLUCAGON,HUMAN RECOMB 1 MG INJ SUBCUT PRN (06:03)
[2019-05-24] MEDS ORDERED: FENTANYL CITRATE INJ/PF 100 MCG/2 ML AMPUL IV PRN ×3 (06:06)
[2019-05-24] MEDS ORDERED: MEPERIDINE HCL/PF INJ 25 MG/1 ML DISP.SYRIN IV PRN (06:06)
[2019-05-24] MEDS ORDERED: OXYCODONE-ACETAMINOPHEN 5-325 MG TABLET PO PRN ×2 (06:06)
[2019-05-24] MEDS ORDERED: MORPHINE SULFATE 10 MG/ML INJ IV PRN (06:06)
[2019-05-24] MEDS ORDERED: DIPHENHYDRAMINE HCL 50 MG/ML VIAL IV PRN (06:06)
[2019-05-24] MEDS ORDERED: PROMETHAZINE HCL INJ 25 MG/1 ML VIAL IV PRN ×2 (06:06)
--- NOTE | 2019-05-24 06:15 | Operative Report ---
Nonrecallable Operative Report DATE OF SURGERY: 05/24/19 PREOPERATIVE DIAGNOSIS: small bowel obstruction, mesenteric internal hernia POSTOPERATIVE DIAGNOSIS: small bowel obstruction, mesenteric ischemia OPERATION: Poor [place] laparotomy with lysis of adhesions SURGEON: ERNIE HEREDIA ANESTHESIA: GA TISSUE REMOVED OR ALTERED: Small bowel diverticulum COMPLICATIONS: None ESTIMATED BLOOD LOSS: 10 cc INTRAOPERATIVE FINDINGS: Small bowel obstruction with internal hernia secondary to adhesive band and inflamed mid jejunal diverticulum. PROCEDURE: Patient was brought to the operating room awake alert stable condition placed in the upper table supine position induced under general anesthesia intubated. After appropriate timeout site verification the procedure commenced. The abdomen was prepped and draped in usual sterile fashion. A midline incision was made from above the umbilicus to just below the umbilicus dissection was carried down through subtenons tissue with Bovie cautery. The midline fascia was then opened with Bovie cautery. There is a moderate amount of ascitic clear fluid in the abdominal cavity and the bowel was markedly dilated. Once we obtained access to the abdominal cavity we then eviscerated the small bowel as it appeared that the mid jejunum was ischemic with venous congestion and and dark coloration of the serosa. It appeared that it had twisted underneath a adhesive band that was running between a mid jejunal diverticulum in the posterior peritoneum this was divided between Jennifer clamps. Once it was divided we were able to eviscerate the small bowel. There was another number of adhesions that were taken down with sharp dissection. Once this was accomplished we identified the terminal ileum and the cecum. I then ran the small bowel back from the cecum to the ligament of Treitz noting that there was a number of thick adhesive bands between the small bowel and the peritoneum which were divided with Bovie cautery. However the main band was between a mid jejunal diverticulum in the posterior peritoneum. Because of this I excised that large pedunculated diverticulum with one firing the Endo CATIA stapler with a blue load. The staple line was examined and noted to be intact. I then milked the small bowel contents back from the terminal ileum all the way proximally to the NG tube which I could palpate in the stomach. The colon was decompressed as well. After decompressing the small bowel back to the stomach and removing it via NG tube I then returned the small bowel back to the abdominal cavity laid the omentum over it and then closed the midline fascia with a running double looped 0 PDS suture. Skin was then closed with standard skin clips. A sterile dressing was applied which completed the procedure. Sponge and needle counts were correct x2. Estimated blood loss was less than 10 cc.
[2019-05-24] MEDS ORDERED: ACETAMINOPHEN 1,000 MG/100 ML RTUPB IV ONE ×2 (06:24→07:15)
[2019-05-24 08:13] LABS: ABSOLUTE LYMPHOCYTES (AUTO) 0.8 10^3/uL (0.5-4.7); ABSOLUTE MONOCYTES (AUTO) 0.2 10^3/uL (0.1-1.4); ABSOLUTE NEUT (AUTO) 6.3 10^3/uL (1.7-8.2); BASOPHILS % (AUTO) 0.3 % (0-2); EOSINOPHILS % (AUTO) 0.1 % (0-6); HEMATOCRIT 36.4 % (36.0-47.0); HEMOGLOBIN 12.2 g/dL (12.0-15.5); LYMPHOCYTES % (AUTO) 10.5 % (13-45); MEAN CORPUSCULAR HEMOGLOBIN 31.6 pg (27.0-33.4); MEAN CORPUSCULAR HGB CONC 33.4 g/dL (32.0-36.0); MEAN CORPUSCULAR VOLUME 95 fl (80-97); MONOCYTES % (AUTO) 2.7 % (3-13); PLATELET COUNT 247 10^3/uL (150-450); RED BLOOD COUNT 3.85 10^6/uL (3.72-5.28); RED CELL DISTRIBUTION WIDTH 14.5 % (11.5-14.0); SEGMENTED NEUTROPHILS % (AUTO) 86.4 % (42-78); TOTAL CELLS COUNTED % (AUTO) 100 %; WHITE BLOOD COUNT 7.3 10^3/uL (4.0-10.5)
[2019-05-24 08:19] LABS: APPEARANCE,URINE SLIGHTLY-CLOUDY; BILIRUBIN,URINE NEGATIVE (NEGATIVE); COLOR,URINE YELLOW; GLUCOSE, URINE NEGATIVE (NEGATIVE); KETONES,URINE NEGATIVE (NEGATIVE); LEUKOCYTE ESTERASE,URINE NEGATIVE (NEGATIVE); NITRITE,URINE POSITIVE (NEGATIVE); PROTEIN,URINE 100 mg/dL (NEGATIVE); URINE SPECIFIC GRAVITY 1.046; UROBILINOGEN,URINE NEGATIVE mg/dL (<2.0)
[2019-05-24 09:07] LABS: ANION GAP 7 (5-19); BLOOD UREA NITROGEN 17 mg/dL (7-20); CALCIUM 8.2 mg/dL (8.4-10.2); CARBON DIOXIDE 28 mmol/L (22-30); CHLORIDE 105 mmol/L (98-107); GLUCOSE 148 mg/dL (75-110); POTASSIUM 3.1 mmol/L (3.6-5.0)
[2019-05-24] MEDS: POTASSI CL 20 MEQ/D5-1/2NS 1L 1,000 ML IV PRN (09:57)
[2019-05-24] MEDS: FAMOTIDINE INJ/PF 20 MG/2 ML SDV IV SCH ×2 (10:03→21:28)
[2019-05-24] MEDS ORDERED: NEOSTIGMINE METHYLSULFATE 10 MG/10 ML VIAL ONE (10:36)
[2019-05-24] MEDS ORDERED: GLYCOPYRROLATE 1 MG/5 ML VIAL ONE (10:36)
[2019-05-24] MEDS ORDERED: VECURONIUM BROMIDE INJ 10 MG VIAL IV ONE (10:36)
[2019-05-24] MEDS ORDERED: PHENYLEPHRINE HCL INJ/PF 10 MG/1 ML SDV ONE (10:36)
[2019-05-24] MEDS ORDERED: SUCCINYLCHOLINE CHLORIDE INJ 200 MG/10 ML VIAL ONE (10:36)
[2019-05-24] MEDS: MAGNESIUM SULFATE 1 GM/D5W 100 ML IV SCH ×2 (13:45→16:33)
[2019-05-24] MEDS ORDERED: POTASSI CL 20 MEQ/50 ML RIDER 20 MEQ/50 ML RTUPB IV ONE (15:30)
[2019-05-24] MEDS: CEFAZOLIN 1 GM/D5W RTU 1 GM/50 ML RTUPB IV SCH ×2 (15:47→21:28)
[2019-05-24] MEDS: MORPHINE SULFATE 10 MG/ML INJ IV PRN (16:02)
[2019-05-24] MEDS ORDERED: LABETALOL HCL INJ 20 MG/4 ML DISP.SYRIN IV PRN (16:25)
--- NOTE | 2019-05-24 16:25 | PDOC CONSULTATION ---
Consultation Consult Date: 05/24/19 Attending physician:: ERNIE HEREDIA Provider Consulted: PIEDAD SMYTH Consult reason:: Medical management of surgical patient History of Present Illness Admission Date/PCP: 05/24/19 04:33 PIEDAD SMYTH MD History of Present Illness: NARENDRA PAPPAS is a 84 year old female, patient is well-known to me from outpatient she has a history of hypertension, generalized osteoarthritis, history of small bowel obstruction she presented to the emergency room for evaluation of abdominal pain. A CAT scan of the abdomen and pelvis was done it demonstrated distention of the proximal stomach with fluid, duodenal diverticulum, there is mild to moderate dilatation of multiple small bowel loops most prominent distally in the right hemiabdomen, there is area of twisting mesenteric vessels as well as twisting and narrowing of several small bowel loops including the terminal ileum. There is evidence of associated small bowel obstruction related to the terminal ileum twisting colon was normal in caliber, she was seen by the surgeon Dr. Heredia she was taken to the OR earlier this morning for exploratory laparotomy. I was consulted for medical management of this surgical patient. She has a history of hypertension, she does not have any chest pain, no shortness of breath, she is presently n.p.o., NG tube in place. She has electrolyte derangement including hypomagnesemia, the blood pressure is reasonable at this time, I saw her by the bedside with family in the room, she has no more abdominal pain. Past Medical History Cardiac Medical History: Reports: Hypertension GI Medical History: Reports: Gastroesophageal Reflux Disease, Other - multiple previous sbo's and previous small bowel resection Musculoskeltal Medical History: Reports: Arthritis - Rheumatoid arthritis Psychiatric Medical History: Reports: None Past Surgical History Past Surgical History: Reports: Herniorrhaphy - Inguinal hernia repair, Hysterectomy, Orthopedic Surgery - Right Carpal tunnel surgery, Other - Patient reports having a colonoscopy 2 weeks ago with polypectomy 16; Social History Lives with: Family Smoking Status: Never Smoker Frequency of Alcohol Use: None Hx Recreational Drug Use: No Drugs: None Hx Prescription Drug Abuse: No Family History Family History: CAD, CVA, DM, Malignancy Parental Family History Reviewed: Yes Children Family History Reviewed: Yes Sibling(s) Family History Reviewed.: Yes Medication/Allergy Home Medications: Cholecalciferol (Vitamin D3) [Vitamin D3 1000 Unit Tablet] 1,000 unit PO DAILY 02/25/17 [place]-3 Fatty Acids/Fish Oil [Fish Oil 1,000 mg Capsule] 1 cap PO DAILY 02/25/17 Omeprazole 20 mg PO DAILY 02/25/17 Cyanocobalamin (Vitamin B-12) [Vitamin B-12 1000 Mcg Tablet] 1,000 mcg PO DAILY 05/24/19 Magnesium Oxide [Mag-Ox 400 mg Tablet] 400 mg PO DAILY 05/24/19 Potassium Gluconate [Potassium] 99 mg PO DAILY 05/24/19 Valsartan/Hydrochlorothiazide [Valsartan-Hctz 160-12.5 mg Tab] 1 each PO DAILY 05/24/19 Allergies/Adverse Reactions: No Known Allergies Allergy (Verified 03/09/19 09:15) Review of Systems Constitutional: ABSENT: chills, fever(s), headache(s), weight gain, weight loss Eyes: ABSENT: visual disturbances Ears: ABSENT: hearing changes Cardiovascular: ABSENT: chest pain, dyspnea on exertion, edema, orthropnea, palpitations Respiratory: ABSENT: cough, hemoptysis Gastrointestinal: ABSENT: abdominal pain, constipation, diarrhea, hematemesis, hematochezia, nausea, vomiting Genitourinary: ABSENT: dysuria, hematuria Musculoskeletal: ABSENT: joint swelling Integumentary: ABSENT: rash, wounds Neurological: ABSENT: abnormal gait, abnormal speech, confusion, dizziness, focal weakness, syncope Psychiatric: ABSENT: anxiety, depression, homidical ideation, suicidal ideation Endocrine: ABSENT: cold intolerance, heat intolerance, menstrual abnormalities, polydipsia, polyuria Hematologic/Lymphatic: ABSENT: easy bleeding, easy bruising, lymphadenopathy Physical Exam Vital Signs: Temp Pulse Resp BP Pulse Ox 97.7 F 85 16 130/50 H 96 05/24/19 12:09 05/24/19 12:09 05/24/19 12:09 05/24/19 12:09 05/24/19 12:09 Intake & Output 05/23/19 05/24/19 05/25/19 06:59 06:59 06:59 Intake Total 2150 600 Output Total 1300 250 Balance 850 350 Weight 52.163 kg 51.9 kg General appearance: PRESENT: no acute distress Head exam: PRESENT: atraumatic, normocephalic Eye exam: PRESENT: PERRLA Ear exam: PRESENT: normal external ear exam Mouth exam: PRESENT: moist, tongue midline Neck exam: PRESENT: full ROM Respiratory exam: PRESENT: clear to auscultation tonya Cardiovascular exam: PRESENT: RRR, +S1, +S2 Pulses: PRESENT: normal dorsalis pedis pul, +2 pedal pulses bilateral Vascular exam: PRESENT: normal capillary refill GI/Abdominal exam: PRESENT: normal bowel sounds, soft, other - There is dressing of the mid abdomen Rectal exam: PRESENT: deferred Neurological exam: PRESENT: alert, CN II-XII grossly intact Psychiatric exam: PRESENT: appropriate affect, normal mood Skin exam: PRESENT: dry, intact, warm Results Laboratory Results: 05/24/19 07:33 05/24/19 08:37 05/24/19 05/24/19 05/24/19 00:55 00:55 00:55 WBC 6.5 RBC 3.97 Hgb 12.7 Hct 37.6 MCV 95 MCH 32.0 MCHC 33.9 RDW 14.5 H Plt Count 322 Seg Neutrophils % 66.8 Sodium 142.3 Potassium 2.9 L* Chloride 103 Carbon Dioxide 29 Anion Gap 10 BUN 15 Creatinine 0.55 Est GFR ( Amer) > 60 Est GFR (Non-Af Amer) Glucose 181 H Lactic Acid 1.7 Calcium 9.5 Magnesium Total Bilirubin 0.6 AST 30 Alkaline Phosphatase 103 Total Protein 7.4 Albumin 3.8 Lipase 68.0 Urine Color Urine Appearance Urine pH Ur Specific [place] Urine Protein Urine Glucose (UA) Urine Ketones Urine Blood Urine Nitrite Ur Leukocyte Esterase Urine WBC (Auto) Urine RBC (Auto) 05/24/19 05/24/19 05/24/19 00:55 07:33 07:40 WBC 7.3 RBC 3.85 Hgb 12.2 Hct 36.4 MCV 95 MCH 31.6 MCHC 33.4 RDW 14.5 H Plt Count 247 Seg Neutrophils % 86.4 H Sodium Potassium Chloride Carbon Dioxide Anion Gap BUN Creatinine Est GFR ( Amer) Est GFR (Non-Af Amer) Glucose Lactic Acid Calcium Magnesium 0.9 L* Total Bilirubin AST Alkaline Phosphatase Total Protein Albumin Lipase Urine Color YELLOW Urine Appearance SLIGHTLY-CLOUDY Urine pH 5.0 Ur Specific [place] 1.046 Urine Protein 100 H Urine Glucose (UA) NEGATIVE Urine Ketones NEGATIVE Urine Blood SMALL H Urine Nitrite POSITIVE H Ur Leukocyte Esterase NEGATIVE Urine WBC (Auto) 5 Urine RBC (Auto) 8 02/29/20 02/29/20 02/29/20 07:46 08:37 08:37 WBC RBC Hgb Hct MCV MCH MCHC RDW Plt Count Seg Neutrophils % Sodium Cancelled 140.2 Potassium Cancelled 3.1 L Chloride Cancelled 105 Carbon Dioxide Cancelled 28 Anion Gap Cancelled 7 BUN Cancelled 17 Creatinine Cancelled 0.37 L Est GFR ( Amer) Cancelled > 60 Est GFR (Non-Af Amer) Cancelled Glucose Cancelled 148 H Lactic Acid Calcium Cancelled 8.2 L Magnesium 0.8 L* Total Bilirubin AST Alkaline Phosphatase Total Protein Albumin Lipase Urine Color Urine Appearance Urine pH Ur Specific [place] Urine Protein Urine Glucose (UA) Urine Ketones Urine Blood Urine Nitrite Ur Leukocyte Esterase Urine WBC (Auto) Urine RBC (Auto) Impressions: Abdomen/Pelvis CT 05/24/19 01:45 IMPRESSION: 1. Small bowel obstruction with suggestion of underlying internal hernia or small bowel volvulus as described above. There is also associated twisting of the SMV, which demonstrates significant narrowing. 2. Trace free fluid in the abdomen and within the pelvis. This is slightly decreased compared to the prior study. 3. Small amount of fluid in the distal esophagus. Assessment & Plan - Diagnosis (1) Small bowel obstruction Is this a current diagnosis for this admission?: Yes Plan: Patient underwent laparotomy earlier this morning, was stable at the moment ,management according to the surgeon (2) Essential (primary) hypertension Is this a current diagnosis for this admission?: Yes Plan: The blood pressure is reasonable at the moment, she normally uses ARB for the control blood pressure, she will be started on labetalol to be used as needed if blood pressure is more than 160 systolic, we will continue close monitoring, check cardiac enzymes every 8x3 (3) Hypokalemia Is this a current diagnosis for this admission?: Yes Plan: Replace potassium (4) Hypomagnesemia Is this a current diagnosis for this admission?: Yes Plan: Replace magnesium
[2019-05-24] MEDS: METRONIDAZOLE 500 MG/NS RTU 500 MG/100 ML RTUPB IV SCH ×2 (18:17→22:06)
[2019-05-24 18:30] LABS: CREATINE KINASE MB 2.28 ng/mL (<4.55)
[2019-05-24 18:33] LABS: TROPONIN I < 0.012 ng/mL
[2019-05-24 23:59] LABS: CREATINE KINASE MB 1.56 ng/mL (<4.55)
[2019-05-25] MEDS: POTASSI CL 20 MEQ/D5-1/2NS 1L 1,000 ML IV PRN ×3 (00:03→19:43)
[2019-05-25 00:05] LABS: TROPONIN I < 0.012 ng/mL
[2019-05-25] MEDS: MORPHINE SULFATE 10 MG/ML INJ IV PRN ×4 (00:08→17:17)
[2019-05-25] MEDS: CEFAZOLIN 1 GM/D5W RTU 1 GM/50 ML RTUPB IV SCH ×3 (05:18→21:14)
[2019-05-25 05:44] LABS: ABSOLUTE EOSINOPHILS # (AUTO) 0.1 10^3/uL (0.0-0.6); ABSOLUTE LYMPHOCYTES (AUTO) 1.4 10^3/uL (0.5-4.7); ABSOLUTE MONOCYTES (AUTO) 0.7 10^3/uL (0.1-1.4); ABSOLUTE NEUT (AUTO) 6.3 10^3/uL (1.7-8.2); BASOPHILS % (AUTO) 0.3 % (0-2); EOSINOPHILS % (AUTO) 0.7 % (0-6); HEMATOCRIT 31.2 % (36.0-47.0); HEMOGLOBIN 10.6 g/dL (12.0-15.5); LYMPHOCYTES % (AUTO) 16.9 % (13-45); MEAN CORPUSCULAR HEMOGLOBIN 31.9 pg (27.0-33.4); MEAN CORPUSCULAR HGB CONC 34.1 g/dL (32.0-36.0); MEAN CORPUSCULAR VOLUME 94 fl (80-97); MONOCYTES % (AUTO) 8.5 % (3-13); PLATELET COUNT 254 10^3/uL (150-450); RED BLOOD COUNT 3.33 10^6/uL (3.72-5.28); RED CELL DISTRIBUTION WIDTH 14.6 % (11.5-14.0); SEGMENTED NEUTROPHILS % (AUTO) 73.6 % (42-78); TOTAL CELLS COUNTED % (AUTO) 100 %; WHITE BLOOD COUNT 8.5 10^3/uL (4.0-10.5)
[2019-05-25] MEDS: METRONIDAZOLE 500 MG/NS RTU 500 MG/100 ML RTUPB IV SCH ×3 (05:58→21:46)
[2019-05-25 06:08] LABS: BLOOD UREA NITROGEN 14 mg/dL (7-20); CALCIUM 7.6 mg/dL (8.4-10.2); CREATINE KINASE 34 U/L (30-135); GLUCOSE 120 mg/dL (75-110)
[2019-05-25 06:27] LABS: ANION GAP 4 (5-19); CARBON DIOXIDE 30 mmol/L (22-30); CHLORIDE 105 mmol/L (98-107)
[2019-05-25 06:29] LABS: CREATINE KINASE MB 1.07 ng/mL (<4.55); TROPONIN I < 0.012 ng/mL
[2019-05-25] MEDS: POTASSIUM CHLORIDE 20 MEQ/50 ML RTU IV SCH ×2 (06:52→08:53)
--- NOTE | 2019-05-25 08:39 | PDOC PROGRESS REPORT ---
Subjective Progress Note for:: 05/25/19 Subjective:: sitting up in chair this moring, feels better Reason For Visit: SMALL BOWEL OBSTRUCTION,INTERNAL HERNIA Physical Exam Vital Signs: Temp Pulse Resp BP Pulse Ox 98.6 F 87 14 110/38 L 94 05/25/19 00:34 05/25/19 00:34 05/25/19 00:34 05/25/19 00:34 05/25/19 00:34 Intake & Output 05/24/19 05/25/19 05/26/19 06:59 06:59 06:59 Intake Total 2150 2100 Output Total 1300 1225 Balance 850 875 Weight 52.163 kg 55.2 kg General appearance: PRESENT: no acute distress Head exam: PRESENT: normocephalic Eye exam: PRESENT: EOMI Ear exam: PRESENT: normal external ear exam Mouth exam: PRESENT: moist Teeth exam: PRESENT: edentulous Neck exam: PRESENT: full ROM Respiratory exam: PRESENT: clear to auscultation tonya Cardiovascular exam: PRESENT: RRR Pulses: PRESENT: normal radial pulses, normal femoral pulses Breast: PRESENT: Normal GI/Abdominal exam: PRESENT: distended, soft Rectal exam: PRESENT: deferred Gentrourinary exam: PRESENT: indwelling catheter Extremities exam: PRESENT: full ROM Musculoskeletal exam: PRESENT: ambulatory Psychiatric exam: PRESENT: appropriate affect Skin exam: PRESENT: dry Results Laboratory Results: 05/25/19 05:35 05/25/19 05:35 05/24/19 05/24/19 05/25/19 08:37 08:37 05:35 WBC 8.5 RBC 3.33 L Hgb 10.6 L Hct 31.2 L MCV 94 MCH 31.9 MCHC 34.1 RDW 14.6 H Plt Count 254 Seg Neutrophils % 73.6 Sodium 140.2 Potassium 3.1 L Chloride 105 Carbon Dioxide 28 Anion Gap 7 BUN 17 Creatinine 0.37 L Est GFR ( Amer) > 60 Glucose 148 H Calcium 8.2 L Magnesium 0.8 L* 05/25/19 05:35 WBC RBC Hgb Hct MCV MCH MCHC RDW Plt Count Seg Neutrophils % Sodium 138.5 Potassium 3.0 L* Chloride 105 Carbon Dioxide 30 Anion Gap 4 L BUN 14 Creatinine 0.31 L Est GFR ( Amer) > 60 Glucose 120 H Calcium 7.6 L Magnesium 02/05/24/19 05/24/19 17:34 17:34 23:20 Creatine Kinase 46 36 CK-MB (CK-2) 2.28 Troponin I < 0.012 05/24/19 05/25/19 05/25/19 23:20 05:35 05:35 Creatine Kinase 34 CK-MB (CK-2) 1.56 1.07 Troponin I < 0.012 < 0.012 Impressions: Abdomen/Pelvis CT 05/24/19 01:45 IMPRESSION: 1. Small bowel obstruction with suggestion of underlying internal hernia or small bowel volvulus as described above. There is also associated twisting of the SMV, which demonstrates significant narrowing. 2. Trace free fluid in the abdomen and within the pelvis. This is slightly decreased compared to the prior study. 3. Small amount of fluid in the distal esophagus. Assessment & Plan - Plan Summary Plan Summary: pod 1 s/p exploratory laparotomy with reduction of internal hernia lysis of adhesions doing better this am initial abd pain resolved, now with incisional pain ng functioning no flatus yet plan correct k+ and Mag ambulate, awaiting return of bowel function.
[2019-05-25] MEDS: FAMOTIDINE INJ/PF 20 MG/2 ML SDV IV SCH ×2 (09:31→21:17)
--- NOTE | 2019-05-25 17:35 | PDOC PROGRESS REPORT ---
Subjective Progress Note for:: 05/25/19 Subjective:: Patient seen by the bedside, still n.p.o. #1 postoperative day Reason For Visit: SMALL BOWEL OBSTRUCTION,INTERNAL HERNIA Physical Exam Vital Signs: Temp Pulse Resp BP Pulse Ox 98.7 F 75 16 159/52 H 94 05/25/19 16:11 05/25/19 16:11 05/25/19 16:11 05/25/19 16:11 05/25/19 16:11 Intake & Output 05/24/19 05/25/19 05/26/19 06:59 06:59 06:59 Intake Total 2150 2100 1350 Output Total 1300 1225 600 Balance 850 875 750 Weight 52.163 kg 55.2 kg General appearance: PRESENT: no acute distress Eye exam: PRESENT: PERRLA Respiratory exam: PRESENT: clear to auscultation tonya Cardiovascular exam: PRESENT: +S1, +S2 GI/Abdominal exam: PRESENT: soft Neurological exam: PRESENT: alert Results Laboratory Results: 05/25/19 05:35 05/25/19 05:35 05/25/19 05/25/19 05:35 05:35 WBC 8.5 RBC 3.33 L Hgb 10.6 L Hct 31.2 L MCV 94 MCH 31.9 MCHC 34.1 RDW 14.6 H Plt Count 254 Seg Neutrophils % 73.6 Sodium 138.5 Potassium 3.0 L* Chloride 105 Carbon Dioxide 30 Anion Gap 4 L BUN 14 Creatinine 0.31 L Est GFR ( Amer) > 60 Glucose 120 H Calcium 7.6 L 05/24/19 05/24/19 05/24/19 17:34 17:34 23:20 Creatine Kinase 46 36 CK-MB (CK-2) 2.28 Troponin I < 0.012 05/24/19 05/25/19 05/25/19 23:20 05:35 05:35 Creatine Kinase 34 CK-MB (CK-2) 1.56 1.07 Troponin I < 0.012 < 0.012 Impressions: Abdomen/Pelvis CT 05/24/19 01:45 IMPRESSION: 1. Small bowel obstruction with suggestion of underlying internal hernia or small bowel volvulus as described above. There is also associated twisting of the SMV, which demonstrates significant narrowing. 2. Trace free fluid in the abdomen and within the pelvis. This is slightly decreased compared to the prior study. 3. Small amount of fluid in the distal esophagus. Assessment & Plan - Diagnosis (1) Small bowel obstruction Is this a current diagnosis for this admission?: Yes (2) Essential (primary) hypertension Is this a current diagnosis for this admission?: Yes Plan: Patient not presently requiring any medication for the control of blood pressure (3) Hypokalemia Is this a current diagnosis for this admission?: Yes (4) Hypomagnesemia Is this a current diagnosis for this admission?: Yes - Time Time Spent with patient: 25-34 minutes Level of Care: MEDICAL
[2019-05-26] MEDS: CEFAZOLIN 1 GM/D5W RTU 1 GM/50 ML RTUPB IV SCH (05:09)
[2019-05-26 05:29] LABS: BLOOD UREA NITROGEN 6 mg/dL (7-20); CALCIUM 7.6 mg/dL (8.4-10.2); CARBON DIOXIDE 29 mmol/L (22-30); CHLORIDE 104 mmol/L (98-107); GLUCOSE 118 mg/dL (75-110); POTASSIUM 3.4 mmol/L (3.6-5.0)
[2019-05-26] MEDS: MORPHINE SULFATE 10 MG/ML INJ IV PRN (05:37)
[2019-05-26 05:39] LABS: ANION GAP 4 (5-19)
[2019-05-26] MEDS: METRONIDAZOLE 500 MG/NS RTU 500 MG/100 ML RTUPB IV SCH (05:42)
[2019-05-26] MEDS: POTASSI CL 20 MEQ/D5-1/2NS 1L 1,000 ML IV PRN ×2 (07:13→15:19)
--- NOTE | 2019-05-26 07:40 | PDOC PROGRESS REPORT ---
Subjective Progress Note for:: 05/26/19 Subjective:: less abd pain no flatus Reason For Visit: SMALL BOWEL OBSTRUCTION,INTERNAL HERNIA Physical Exam Vital Signs: Temp Pulse Resp BP Pulse Ox 97.7 F 65 16 129/44 H 92 05/25/19 23:01 05/25/19 23:01 05/25/19 23:01 05/25/19 23:01 05/25/19 23:01 Intake & Output 05/25/19 05/26/19 05/27/19 06:59 06:59 06:59 Intake Total 2100 4750 Output Total 1225 2500 Balance 875 2250 Weight 55.2 kg 57.3 kg General appearance: PRESENT: no acute distress Head exam: PRESENT: normocephalic Eye exam: PRESENT: EOMI Ear exam: PRESENT: normal external ear exam Mouth exam: PRESENT: moist Teeth exam: PRESENT: edentulous Neck exam: PRESENT: full ROM Respiratory exam: PRESENT: clear to auscultation tonya Cardiovascular exam: PRESENT: RRR Pulses: PRESENT: normal radial pulses, normal femoral pulses Vascular exam: PRESENT: pallor Breast: PRESENT: Normal GI/Abdominal exam: PRESENT: distended, soft Rectal exam: PRESENT: deferred Gentrourinary exam: PRESENT: indwelling catheter Extremities exam: PRESENT: other - rt knee swelling, Neurological exam: PRESENT: alert, awake, oriented to person, oriented to place Psychiatric exam: PRESENT: appropriate affect Skin exam: PRESENT: dry Results Laboratory Results: 05/25/19 05:35 05/26/19 04:31 05/26/19 04:31 Sodium 136.9 L Potassium 3.4 L Chloride 104 Carbon Dioxide 29 Anion Gap 4 L BUN 6 L Creatinine 0.27 L Est GFR ( Amer) > 60 Glucose 118 H Calcium 7.6 L Magnesium 1.6 05/24/19 05/24/19 05/24/19 17:34 17:34 23:20 Creatine Kinase 46 36 CK-MB (CK-2) 2.28 Troponin I < 0.012 05/24/19 05/25/19 05/25/19 23:20 05:35 05:35 Creatine Kinase 34 CK-MB (CK-2) 1.56 1.07 Troponin I < 0.012 < 0.012 Impressions: Abdomen/Pelvis CT 05/24/19 01:45 IMPRESSION: 1. Small bowel obstruction with suggestion of underlying internal hernia or small bowel volvulus as described above. There is also associated twisting of the SMV, which demonstrates significant narrowing. 2. Trace free fluid in the abdomen and within the pelvis. This is slightly decreased compared to the prior study. 3. Small amount of fluid in the distal esophagus. Assessment & Plan - Plan Summary Plan Summary: doing better this am c/o rt knee pain :"from my arthritis" abd less distended, few bs plan toradol cont ng suction will dc hanson.
[2019-05-26] MEDS: KETOROLAC TROMETHAMINE INJ/PF 30 MG/1 ML SDV IV SCH ×4 (08:14→22:08)
[2019-05-26] MEDS: FAMOTIDINE INJ/PF 20 MG/2 ML SDV IV SCH ×2 (09:28→22:07)
[2019-05-27] MEDS: KETOROLAC TROMETHAMINE INJ/PF 30 MG/1 ML SDV IV SCH ×4 (03:09→21:24)
[2019-05-27] MEDS: POTASSI CL 20 MEQ/D5-1/2NS 1L 1,000 ML IV PRN ×3 (03:09→21:29)
--- NOTE | 2019-05-27 08:33 | PDOC PROGRESS REPORT ---
Subjective Progress Note for:: 05/27/19 Subjective:: feels better c/o some rt knee swelling comprimising ablity to walk Reason For Visit: SMALL BOWEL OBSTRUCTION,INTERNAL HERNIA Physical Exam Vital Signs: Temp Pulse Resp BP Pulse Ox 98.5 F 65 18 136/44 H 93 05/27/19 00:32 05/27/19 00:32 05/27/19 00:32 05/27/19 00:32 05/27/19 00:32 Intake & Output 05/26/19 05/27/19 05/28/19 06:59 06:59 06:59 Intake Total 4750 2360 Output Total 2500 650 Balance 2250 1710 Weight 57.3 kg 57.3 kg General appearance: PRESENT: no acute distress Head exam: PRESENT: normocephalic Eye exam: PRESENT: EOMI Ear exam: PRESENT: normal external ear exam Mouth exam: PRESENT: moist Teeth exam: PRESENT: edentulous Neck exam: PRESENT: full ROM Respiratory exam: PRESENT: clear to auscultation tonya Cardiovascular exam: PRESENT: RRR Pulses: PRESENT: normal radial pulses, normal femoral pulses Vascular exam: PRESENT: normal capillary refill Breast: PRESENT: Normal GI/Abdominal exam: PRESENT: soft Rectal exam: PRESENT: deferred Extremities exam: PRESENT: other - rt knee effusion, no warmth, no cellulitis bedside aspiration drained 90cc of clear serous fluid Neurological exam: PRESENT: alert, awake, oriented to person, oriented to place Psychiatric exam: PRESENT: appropriate affect Skin exam: PRESENT: dry Results Laboratory Results: 05/25/19 05:35 05/26/19 04:31 05/24/19 14:45 Catheterized Urine Urine Culture - Final 5,000 col/ml 05/24/19 05/24/19 05/24/19 17:34 17:34 23:20 Creatine Kinase 46 36 CK-MB (CK-2) 2.28 Troponin I < 0.012 05/24/19 05/25/19 05/25/19 23:20 05:35 05:35 Creatine Kinase 34 CK-MB (CK-2) 1.56 1.07 Troponin I < 0.012 < 0.012 Impressions: Abdomen/Pelvis CT 05/24/19 01:45 IMPRESSION: 1. Small bowel obstruction with suggestion of underlying internal hernia or small bowel volvulus as described above. There is also associated twisting of the SMV, which demonstrates significant narrowing. 2. Trace free fluid in the abdomen and within the pelvis. This is slightly decreased compared to the prior study. 3. Small amount of fluid in the distal esophagus. Assessment & Plan - Plan Summary Plan Summary: s/p exploratory lap ;for sbo doing better today now passing some flatus also with rt knee effusion drained at bedside pt raghu well p[aruna cont ng suction awaiting return of bowel function.
--- NOTE | 2019-05-27 08:35 | Operative Report ---
Bedside Procedure - History of Present Illness Indication for Procedure: right knee effusion Provider: ERNIE HEREDIA - Joint Aspiration Right Knee Time completed: 08:00 Consent obtained: Yes Joint aspiration pre-procedure: Chloraprep applied Anesthetic type: Other Needle size: 18 Amount/type of drainage: clear serous 90cc Number of attempts: 1 Complications: No Notes: flulid sent for c and s and gram stain and uric acid crystals pt obtained immediate relief.
[2019-05-27 08:57] LABS: CALCIUM PYROPHOSPHATE CRYSTALS NONE OBSERVED; MONOSODIUM URATE CRYSTALS NONE OBSERVED; OTHER CRYSTALS NONE OBSERVED
[2019-05-27] MEDS: FAMOTIDINE INJ/PF 20 MG/2 ML SDV IV SCH ×2 (09:36→21:24)
[2019-05-28] MEDS: POTASSI CL 20 MEQ/D5-1/2NS 1L 1,000 ML IV PRN ×2 (06:23→19:03)
--- NOTE | 2019-05-28 08:37 | PDOC PROGRESS REPORT ---
Subjective Progress Note for:: 05/28/19 Subjective:: feels better, now passing flatus and bm ng with min op Reason For Visit: SMALL BOWEL OBSTRUCTION,INTERNAL HERNIA Physical Exam Vital Signs: Temp Pulse Resp BP Pulse Ox 97.7 F 64 16 162/54 H 96 05/27/19 23:04 05/27/19 23:04 05/27/19 23:04 05/27/19 23:04 05/27/19 23:04 Intake & Output 05/27/19 05/28/19 05/29/19 06:59 06:59 06:59 Intake Total 2360 3000 Output Total 650 400 Balance 1710 2600 Weight 57.3 kg 51.5 kg General appearance: PRESENT: no acute distress Head exam: PRESENT: normocephalic Eye exam: PRESENT: EOMI Mouth exam: PRESENT: moist Neck exam: PRESENT: full ROM Respiratory exam: PRESENT: clear to auscultation tonya Cardiovascular exam: PRESENT: RRR Pulses: PRESENT: normal femoral pulses, normal dorsalis pedis pul Vascular exam: PRESENT: normal capillary refill GI/Abdominal exam: PRESENT: soft Rectal exam: PRESENT: deferred Extremities exam: PRESENT: full ROM Musculoskeletal exam: PRESENT: full ROM Neurological exam: PRESENT: alert, awake, oriented to person, oriented to place Psychiatric exam: PRESENT: appropriate affect Skin exam: PRESENT: dry Results Laboratory Results: 05/25/19 05:35 05/26/19 04:31 05/27/19 08:05 Fluid Type SYNOVIAL 05/24/19 05/24/19 05/24/19 17:34 17:34 23:20 Creatine Kinase 46 36 CK-MB (CK-2) 2.28 Troponin I < 0.012 05/24/19 05/25/19 05/25/19 23:20 05:35 05:35 Creatine Kinase 34 CK-MB (CK-2) 1.56 1.07 Troponin I < 0.012 < 0.012 Impressions: Abdomen/Pelvis CT 05/24/19 01:45 IMPRESSION: 1. Small bowel obstruction with suggestion of underlying internal hernia or small bowel volvulus as described above. There is also associated twisting of the SMV, which demonstrates significant narrowing. 2. Trace free fluid in the abdomen and within the pelvis. This is slightly decreased compared to the prior study. 3. Small amount of fluid in the distal esophagus. Assessment & Plan - Plan Summary Plan Summary: pt now passing stool and flatlus ng op markedly dedcreased will dc ng today 'start clears.
[2019-05-28] MEDS: FAMOTIDINE INJ/PF 20 MG/2 ML SDV IV SCH ×2 (09:18→21:09)
--- NOTE | 2019-05-29 07:07 | PDOC PROGRESS REPORT ---
Subjective Progress Note for:: 05/29/19 Subjective:: feels better, passing stool Reason For Visit: SMALL BOWEL OBSTRUCTION,INTERNAL HERNIA Physical Exam Vital Signs: Temp Pulse Resp BP Pulse Ox 98.1 F 64 16 141/42 H 95 05/28/19 23:01 05/28/19 23:01 05/28/19 23:01 05/28/19 23:01 05/28/19 23:01 Intake & Output 05/28/19 05/29/19 05/30/19 06:59 06:59 06:59 Intake Total 3000 2388 Output Total 400 Balance 2600 2388 Weight 51.5 kg 52.6 kg General appearance: PRESENT: no acute distress Head exam: PRESENT: normocephalic Eye exam: PRESENT: EOMI Mouth exam: PRESENT: moist Neck exam: PRESENT: full ROM Respiratory exam: PRESENT: clear to auscultation tonya Cardiovascular exam: PRESENT: RRR Pulses: PRESENT: normal radial pulses, normal femoral pulses Vascular exam: PRESENT: normal capillary refill GI/Abdominal exam: PRESENT: soft Rectal exam: PRESENT: deferred Extremities exam: PRESENT: full ROM Musculoskeletal exam: PRESENT: full ROM Neurological exam: PRESENT: alert, awake, oriented to person, oriented to place Psychiatric exam: PRESENT: appropriate affect Skin exam: PRESENT: dry Results Laboratory Results: 05/25/19 05:35 05/26/19 04:31 05/27/19 08:05 Fluid Uric Acid 1.8 05/24/19 05/24/19 05/24/19 17:34 17:34 23:20 Creatine Kinase 46 36 CK-MB (CK-2) 2.28 Troponin I < 0.012 05/24/19 05/25/19 05/25/19 23:20 05:35 05:35 Creatine Kinase 34 CK-MB (CK-2) 1.56 1.07 Troponin I < 0.012 < 0.012 Impressions: Abdomen/Pelvis CT 05/24/19 01:45 IMPRESSION: 1. Small bowel obstruction with suggestion of underlying internal hernia or small bowel volvulus as described above. There is also associated twisting of the SMV, which demonstrates significant narrowing. 2. Trace free fluid in the abdomen and within the pelvis. This is slightly decreased compared to the prior study. 3. Small amount of fluid in the distal esophagus. Assessment & Plan - Plan Summary Plan Summary: feels better passing stool abd soft will start full liquidls
[2019-05-29] MEDS: FAMOTIDINE INJ/PF 20 MG/2 ML SDV IV SCH ×2 (09:24→21:36)
[2019-05-29] MEDS: VALSARTAN 160 MG TABLET PO SCH (09:24)
[2019-05-29] MEDS: HYDROCHLOROTHIAZIDE 12.5 MG TABLET PO SCH (09:24)
[2019-05-29] MEDS: POTASSI CL 20 MEQ/D5-1/2NS 1L 1,000 ML IV PRN (17:38)
--- NOTE | 2019-05-30 07:50 | PDOC DISCHARGE SUMMARY ---
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 She has had had multiple previous small bowel obstructions and exploratory laparotomies for small bowel obstructions. On the night of admission she was taken directly to the operating room where she underwent exploratory laparotomy with reduction of a midgut volvulus and lysis of adhesions. Postoperatively she did well she was transferred to the floor postoperatively with NG tube in place for recovery. Over the course of the next 5 days she slowly improved throughout her hospital course her NG tube was eventually removed after she started having return of bowel function. She then was started on a clear liquid diet was slowly advanced to a soft diet. She now is tolerating a soft diet she is up ambulating and she is ready for discharge home this afternoon. She will resume her own medications at home. She would not be discharged with any specific medications that she is pain-free at this point. She will follow-up with me in 7 to 10 days in surgical clinic for staple removal. 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 - Additional Information Resuscitation Status: Full Code Discharge Diet: As Tolerated Discharge Activity: Balance Activity w/Rest, No Lifting Over 10 Pounds - Patient has an appointment to follow-up with me in surgery clinic in 7 to 10 days after discharge Referrals: ERNIE HEREDIA MD [ACTIVE STAFF] - 06/09/19 2:45 pm PIEDAD SMYTH MD [Primary Care Provider] - 06/06/19 10:00 am Home Medications: Cholecalciferol (Vitamin D3) [Vitamin D3 1000 Unit Tablet] 1,000 unit PO DAILY 02/25/17 [place]-3 Fatty Acids/Fish Oil [Fish Oil 1,000 mg Capsule] 1 cap PO DAILY 02/25/17 Omeprazole 20 mg PO DAILY 02/25/17 Cyanocobalamin (Vitamin B-12) [Vitamin B-12 1000 Mcg Tablet] 1,000 mcg PO DAILY 05/24/19 Magnesium Oxide [Mag-Ox 400 mg Tablet] 400 mg PO DAILY 05/24/19 Potassium Gluconate [Potassium] 99 mg PO DAILY 05/24/19 Valsartan/Hydrochlorothiazide [Valsartan-Hctz 160-12.5 mg Tab] 1 each PO DAILY 05/24/19 History of Present Illiness History of Present Illness: NARENDRA PAPPAS is a 84 year old femalePatient presents stating that Sunday morning she had abdominal cramping with diarrhea. Patient states that gradually the pain worsened and she started to have nausea and vomiting x2 episodes. Patient denies any fever. Patient states that she felt like earlier in the week she had a stomach virus but the pain symptoms started to develop. Patient states that she has a history of bowel obstruction that has required previous bowel resections in the past and is concerned that she is having another bowel obstruction today. Patient reports abdominal distention and tenderness. Physical Exam Vital Signs: Temp Pulse Resp BP Pulse Ox 97.6 F 66 16 130/54 H 96 05/29/19 23:25 05/29/19 23:25 05/29/19 23:25 05/29/19 23:25 05/29/19 23:25 Intake & Output 05/29/19 05/30/19 05/31/19 06:59 06:59 06:59 Intake Total 2388 3069 Balance 2388 3069 Weight 52.6 kg 51.7 kg Results Laboratory Results: WBC 8.5 10^3/uL (4.0-10.5) 05/25/19 05:35 RBC 3.33 10^6/uL (3.72-5.28) L 05/25/19 05:35 Hgb 10.6 g/dL (12.0-15.5) L 05/25/19 05:35 Hct 31.2 % (36.0-47.0) L 05/25/19 05:35 MCV 94 fl (80-97) 05/25/19 05:35 MCH 31.9 pg (27.0-33.4) 05/25/19 05:35 MCHC 34.1 g/dL (32.0-36.0) 05/25/19 05:35 RDW 14.6 % (11.5-14.0) H 05/25/19 05:35 Plt Count 254 10^3/uL (150-450) 05/25/19 05:35 Lymph % (Auto) 16.9 % (13-45) 05/25/19 05:35 [place] % (Auto) 8.5 % (3-13) 05/25/19 05:35 Eos % (Auto) 0.7 % (0-6) 05/25/19 05:35 Baso % (Auto) 0.3 % (0-2) 05/25/19 05:35 Absolute Neuts (auto) 6.3 10^3/uL (1.7-8.2) 05/25/19 05:35 Absolute Lymphs (auto) 1.4 10^3/uL (0.5-4.7) 05/25/19 05:35 Absolute Monos (auto) 0.7 10^3/uL (0.1-1.4) 05/25/19 05:35 Absolute Eos (auto) 0.1 10^3/uL (0.0-0.6) 05/25/19 05:35 Absolute Basos (auto) 0.0 10^3/uL (0.0-0.2) 05/25/19 05:35 Seg Neutrophils % 73.6 % (42-78) 05/25/19 05:35 Sodium 136.9 mmol/L (137-145) L 05/26/19 04:31 Potassium 3.4 mmol/L (3.6-5.0) L 05/26/19 04:31 Chloride 104 mmol/L (98-107) 05/26/19 04:31 Carbon Dioxide 29 mmol/L (22-30) 05/26/19 04:31 Anion Gap 4 (5-19) L 05/26/19 04:31 BUN 6 mg/dL (7-20) L 05/26/19 04:31 Creatinine 0.27 mg/dL (0.52-1.25) L 05/26/19 04:31 Est GFR ( Amer) > 60 (>60) 05/26/19 04:31 Est GFR (Non-Af Amer) Cancelled 05/24/19 07:46 Est GFR (MDRD) Non-Af > 60 (>60) 05/26/19 04:31 Glucose 118 mg/dL (75-110) H 05/26/19 04:31 Lactic Acid 1.7 mmol/L (0.7-2.1) 05/24/19 00:55 Calcium 7.6 mg/dL (8.4-10.2) L 05/26/19 04:31 Magnesium 1.6 mg/dL (1.6-2.3) 05/26/19 04:31 Total Bilirubin 0.6 mg/dL (0.2-1.3) 05/24/19 00:55 Direct Bilirubin 0.3 mg/dL (0.0-0.4) 05/24/19 00:55 Neonat Total Bilirubin Not Reportable 05/24/19 00:55 Neonat Direct Bilirubin Not Reportable 05/24/19 00:55 Neonat Indirect Bili Not Reportable 05/24/19 00:55 AST 30 U/L (14-36) 05/24/19 00:55 ALT 28 U/L (<35) 05/24/19 00:55 Alkaline Phosphatase 103 U/L (38-126) 05/24/19 00:55 Creatine Kinase 34 U/L (30-135) 05/25/19 05:35 CK-MB (CK-2) 1.07 ng/mL (<4.55) 05/25/19 05:35 Troponin I < 0.012 ng/mL 05/25/19 05:35 Total Protein 7.4 g/dL (6.3-8.2) 05/24/19 00:55 Albumin 3.8 g/dL (3.5-5.0) 05/24/19 00:55 Lipase 68.0 U/L (23-300) 05/24/19 00:55 EGFR Cancelled 05/24/19 07:46 Urine Color YELLOW 05/24/19 07:40 Urine Appearance SLIGHTLY-CLOUDY 05/24/19 07:40 Urine pH 5.0 (5.0-9.0) 05/24/19 07:40 Ur Specific [place] 1.046 05/24/19 07:40 Urine Protein 100 mg/dL (NEGATIVE) H 05/24/19 07:40 Urine Glucose (UA) NEGATIVE mg/dL (NEGATIVE) 05/24/19 07:40 Urine Ketones NEGATIVE mg/dL (NEGATIVE) 05/24/19 07:40 Urine Blood SMALL (NEGATIVE) H 05/24/19 07:40 Urine Nitrite POSITIVE (NEGATIVE) H 05/24/19 07:40 Urine Bilirubin NEGATIVE (NEGATIVE) 05/24/19 07:40 Urine Urobilinogen NEGATIVE mg/dL (<2.0) 05/24/19 07:40 Ur Leukocyte Esterase NEGATIVE (NEGATIVE) 05/24/19 07:40 Urine WBC (Auto) 5 /HPF 05/24/19 07:40 Urine RBC (Auto) 8 /HPF 05/24/19 07:40 Urine Bacteria (Auto) TRACE /HPF 05/24/19 07:40 Squamous Epi Cells Auto <1 /HPF 05/24/19 07:40 Urine Mucus (Auto) OCC /LPF 05/24/19 07:40 Urine Ascorbic Acid NEGATIVE (NEGATIVE) 05/24/19 07:40 Fluid Type SYNOVIAL 05/27/19 08:05 Fluid Crystals NONE OBSERVED 05/27/19 08:05 Fluid Crystal Source RIGHT KNEE 05/27/19 08:05 Ca Pyrophosphate Cryst NONE OBSERVED 05/27/19 08:05 Fluid Uric Acid 1.8 mg/dL (.) 05/27/19 08:05 Synov Monosodium Urate NONE OBSERVED 05/27/19 08:05 05/24/19 05/24/19 05/25/19 17:34 23:20 05:35 CK-MB (CK-2) 2.28 1.56 1.07 Troponin I < 0.012 < 0.012 < 0.012 Impressions: Abdomen/Pelvis CT 05/24/19 01:45 IMPRESSION: 1. Small bowel obstruction with suggestion of underlying internal hernia or small bowel volvulus as described above. There is also associated twisting of the SMV, which demonstrates significant narrowing. 2. Trace free fluid in the abdomen and within the pelvis. This is slightly decreased compared to the prior study. 3. Small amount of fluid in the distal esophagus.
[2019-05-30] MEDS: HYDROCHLOROTHIAZIDE 12.5 MG TABLET PO SCH (09:42)
[2019-05-30] MEDS: VALSARTAN 160 MG TABLET PO SCH (09:42)
[2019-05-30] MEDS: FAMOTIDINE INJ/PF 20 MG/2 ML SDV IV SCH (09:42)
[2019-05-30] MEDS: POTASSI CL 20 MEQ/D5-1/2NS 1L 1,000 ML IV PRN (09:43)
[2019-05-30 12:22] VITALS: BP 155/58
== END 2019-05-30 17:47 | disposition home or self-care (01) | DRG 331 ==
LOC: ER 00:19 → EH 04:33 → UNDOADMIN 04:34 → 4N 08:30
PROVIDERS: ADMIT Surgery; ATTEND Surgery
PROC: 0DNA0ZZ Release Jejunum, Open Approach (ICD-10-PCS; 2019-05-24)
PROC: 0DN80ZZ Release Small Intestine, Open Approach (ICD-10-PCS; 2019-05-24)
PROC: 0DBA0ZZ Excision of Jejunum, Open Approach (ICD-10-PCS; principal; 2019-05-24 05:30)
PROC: 0S9C3ZX Drainage of Right Knee Joint, Percutaneous Approach, Diagnostic (ICD-10-PCS; 2019-05-27)
DX: K56.51 Intestinal adhesions [bands], with partial obstruction (principal); K56.2 Volvulus; Q43.0 Meckel's diverticulum (displaced) (hypertrophic); M25.461 Effusion, right knee; K21.9 Gastro-esophageal reflux disease without esophagitis; M06.9 Rheumatoid arthritis, unspecified; Z90.49 Acquired absence of other specified parts of digestive tract
CPT/HCPCS: 36415; 74177; 790; 80048; 80053; 81001; 82550; 82553; 83605; 83690; 83735; 84484; 84560; 85025; 87040; 87070; 87075; 87086; 87205; 88305; 89060; 94799; 96365; 96368; 96375; 99285; J0131; J0330; J0690; J1100; J1885; J2250; J2270; J2370; J2405; J2704; J2710; J3010; J3475; J3480; J3490; J7120; S0028

== ENCOUNTER → 2019-09-08 | Outpatient (CLI) | payer MEDICARE ==
--- NOTE | 2019-09-08 09:06 | RADIOLOGY REPORT (SQ) ---
EXAM DESCRIPTION: MRI HEAD WITHOUT IMAGES COMPLETED DATE/TIME: 09/08/2019 8:39 am REASON FOR STUDY: (R41.1)ANTEROGRADE AMNESIA R41.1 ANTEROGRADE AMNESIA COMPARISON: None. TECHNIQUE: Multiplanar imaging includes non-contrasted T1, T2, FLAIR, and diffusion with ADC map seq uences. Images stored on PACS. LIMITATIONS: None. FINDINGS: ANATOMY: No anomalies. Normal vascular flow voids. Pituitary fossa normal. CSF SPACES: Age-appropriate. CEREBRUM: No hemorrhage or mass or shift. Minimal periventricular white matter signal consistent wit h small vessel disease. This is extremely mild. No focal lesions are detected. No hydrocephalus. No parenchymal hemorrhage. POSTERIOR FOSSA: Bilateral mastoid fluid. Posterior fossa structures are otherwise normal. DIFFUSION IMAGING: Negative for acute or sub-acute infarction. ORBITS: No masses. Globes normal. PARANASAL SINUSES: No fluid levels. Mild mucosal thickening in the right maxillary sinus. OTHER: No other significant finding. IMPRESSION: 1. No acute intracranial abnormality. 2. Bilateral mastoid effusions. 3. Other findings as above. EVIDENCE OF ACUTE STROKE: NO. TECHNICAL DOCUMENTATION: JOB ID: [id number] [employer]- All Rights Reserved Reading location - IP/workstation name: [email or web address]
== END ==
LOC: RAD 07:47
PROVIDERS: ATTEND Internal Medicine
DX: R41.1 Anterograde amnesia (principal); H74.8X3 Other specified disorders of middle ear and mastoid, bilateral
CPT/HCPCS: 70551

== ENCOUNTER 2019-12-05 10:33 | Inpatient (IN) | payer MEDICARE ==
--- NOTE | 2019-12-05 11:04 | ER Document Report ---
ED Medical Screen (RME) - General Chief Complaint: Direct Admit/Private MD Stated Complaint: CHEST PAIN/DIRECT ADMIT Time Seen by Provider: 12/05/19 10:59 Primary Care Provider: PIEDAD SMYTH MD [Primary Care Provider] - Follow up as needed Mode of Arrival: Wheelchair Information source: Patient Notes: 84-year-old female with presented to ED as a direct admit from Dr. Smyth. There are direct admit orders on the chart. She is here for chest pain and rib pain all the way around. She states when she takes a deep breath and feels like her lungs fill up but what really makes her pain better is moving around. She states she does have a history of high blood pressure and cholesterol according to [facility] records she also has history of bowel obstructions the last one was in April of this year when she had surgery. She is alert oriented answering all questions appropriately speaking in full sentences. I have greeted and performed a rapid initial assessment of this patient. A comprehensive ED assessment and evaluation of the patient, analysis of test results and completion of medical decision making process will be conducted by an additional ED providers. TRAVEL OUTSIDE OF THE [place] IN LAST 30 DAYS: No - Related Data Allergies/Adverse Reactions: No Known Allergies Allergy (Verified 03/09/19 09:15) Past Medical History - Past Medical History Cardiac Medical History: Reports: Hx Hypertension Renal/ Medical History: Denies: Hx Peritoneal Dialysis GI Medical History: Reports: Hx Gastroesophageal Reflux Disease Musculoskeltal Medical History: Reports Hx Arthritis - Rheumatoid arthritis Past Surgical History: Reports: Hx Abdominal Surgery - 3 feet of small intestine removed, impacted bowel, Hx Herniorrhaphy - Inguinal hernia repair, Hx Hysterectomy, Hx Orthopedic Surgery - Right Carpal tunnel surgery, Other - Patient reports having a colonoscopy 2 weeks ago with polypectomy 16; - Immunizations Hx Diphtheria, Pertussis, Tetanus Vaccination: Yes Physical Exam - Vital signs Vitals: Temp Pulse Resp BP Pulse Ox 98.1 F 73 18 172/56 H 95 12/05/19 10:59 12/05/19 10:59 12/05/19 10:59 12/05/19 10:59 12/05/19 10:59 Course - Vital Signs Vital signs: Temp Pulse Resp BP Pulse Ox 98.1 F 73 18 172/56 H 95 12/05/19 10:59 12/05/19 10:59 12/05/19 10:59 12/05/19 10:59 12/05/19 10:59 Doctor's Discharge - Discharge Referrals: PIEDAD SMYTH MD [Primary Care Provider] - Follow up as needed
[2019-12-05] MEDS ORDERED: ASPIRIN 81 MG TABLET, ENT COATED PO ONE (12:00)
[2019-12-05] MEDS ORDERED: CLOPIDOGREL BISULFATE 300 MG TABLET PO ONE (12:00)
[2019-12-05 12:07] LABS: ABSOLUTE BASOPHILS # (AUTO) 0.1 10^3/uL (0.0-0.2); ABSOLUTE EOSINOPHILS # (AUTO) 0.1 10^3/uL (0.0-0.6); ABSOLUTE LYMPHOCYTES (AUTO) 1.7 10^3/uL (0.5-4.7); ABSOLUTE MONOCYTES (AUTO) 0.6 10^3/uL (0.1-1.4); BASOPHILS % (AUTO) 0.9 % (0-2); EOSINOPHILS % (AUTO) 1.2 % (0-6); HEMATOCRIT 38.3 % (36.0-47.0); HEMOGLOBIN 13.3 g/dL (12.0-15.5); LYMPHOCYTES % (AUTO) 26.3 % (13-45); MEAN CORPUSCULAR HEMOGLOBIN 32.2 pg (27.0-33.4); MEAN CORPUSCULAR HGB CONC 34.7 g/dL (32.0-36.0); MEAN CORPUSCULAR VOLUME 93 fl (80-97); MONOCYTES % (AUTO) 9.6 % (3-13); PLATELET COUNT 345 10^3/uL (150-450); RED BLOOD COUNT 4.12 10^6/uL (3.72-5.28); RED CELL DISTRIBUTION WIDTH 14.7 % (11.5-14.0); TOTAL CELLS COUNTED % (AUTO) 100 %; WHITE BLOOD COUNT 6.5 10^3/uL (4.0-10.5)
[2019-12-05 12:25] LABS: ALBUMIN 3.6 g/dL (3.5-5.0); ALKALINE PHOSPHATASE 132 U/L (38-126); ANION GAP 9 (5-19); ASPARTATE AMINO TRANSFERASE 30 U/L (14-36); BILIRUBIN,DIRECT 0.4 mg/dL (0.0-0.4); BILIRUBIN,TOTAL 0.9 mg/dL (0.2-1.3); BLOOD UREA NITROGEN 14 mg/dL (7-20); CALCIUM 9.4 mg/dL (8.4-10.2); CARBON DIOXIDE 36 mmol/L (22-30); CHLORIDE 94 mmol/L (98-107); CREATINE KINASE 70 U/L (30-135); GLUCOSE 93 mg/dL (75-110); TOTAL PROTEIN 6.6 g/dL (6.3-8.2)
[2019-12-05 12:30] LABS: POTASSIUM 2.6 mmol/L (3.6-5.0)
[2019-12-05 12:40] LABS: TROPONIN I < 0.012 ng/mL
--- NOTE | 2019-12-05 12:40 | RADIOLOGY REPORT (SQ) ---
EXAM DESCRIPTION: CHEST 2 VIEWS IMAGES COMPLETED DATE/TIME: 12/05/2019 11:57 am REASON FOR STUDY: Chest pain COMPARISON: 06/11/2016 EXAM PARAMETERS: NUMBER OF VIEWS: two views TECHNIQUE: Digital Frontal and Lateral radiographic views of the chest acquired. RADIATION DOSE: NA LIMITATIONS: none FINDINGS: LUNGS AND PLEURA: No opacities, masses or pneumothorax. No pleural effusion. MEDIASTINUM AND HILAR STRUCTURES: No masses or contour abnormalities. HEART AND VASCULAR STRUCTURES: Heart normal size. No evidence for failure. BONES: No acute findings. HARDWARE: None in the chest. OTHER: No other significant finding. IMPRESSION: NO ACUTE RADIOGRAPHIC FINDING IN THE CHEST. TECHNICAL DOCUMENTATION: JOB ID: [id number] 2010 [employer]- All Rights Reserved Reading location - IP/workstation name: [email or web address]
[2019-12-05 12:41] LABS: FREE T4 (FREE THYROXINE) 1.05 ng/dL (0.78-2.19)
[2019-12-05 12:55] LABS: THYROID STIMULATING HORMONE 5.04 uIU/mL (0.47-4.68)
[2019-12-05] MEDS: METOPROLOL TARTRATE 25 MG TABLET PO SCH ×2 (13:06→21:37)
[2019-12-05] MEDS ORDERED: POTASSI CL 20 MEQ/50 ML RIDER 20 MEQ/50 ML RTUPB IV ONE (13:40)
[2019-12-05] MEDS ORDERED: NORMAL SALINE 1000 ML 1,000 ML IV PRN (19:56)
[2019-12-05 19:59] LABS: CREATINE KINASE MB 1.18 ng/mL (<4.55)
[2019-12-05 20:03] LABS: TROPONIN I < 0.012 ng/mL
--- NOTE | 2019-12-05 21:43 | RADIOLOGY REPORT (SQ) ---
CLINICAL INDICATION: chest pain ,elevated d-dimer. . TECHNIQUE: CT arteriography was obtained of the chest with multiplanar MIP and/or 3-D angiographic reconstructions. This exam was performed according to our departmental dose-optimization program, which includes automated exposure control, adjustment of the mA and/or kV according to patient size and/or use of iterative reconstruction techniques. COMPARISON: None. CORRELATION: None. FINDINGS: Adequate contrast bolus. Average Hounsfield unit measurement within main pulmonary artery segment of 307. Artifact from venous opacification. There is no evidence of pulmonary embolus. Thoracic aorta is of normal caliber. Vascular calcification The heart is prominent. No pericardial effusion. No bulky mediastinal adenopathy. Carotid calcification. Heterogeneity to the thyroid the dominant nodule lower pole left lobe measuring 1 cm The lungs are grossly clear. No consolidation or edema. No effusion or pneumothorax. Motion artifact. Chronic changes Visualized abdominal contents are unremarkable. Visualized bones are unremarkable. IMPRESSION: No evidence of pulmonary embolus. Lungs grossly clear. .
[2019-12-05] MEDS: ENOXAPARIN SODIUM INJ 40 MG/0.4 ML DISP.SYRIN SUBCUT SCH (21:46)
[2019-12-05] MEDS ORDERED: ATORVASTATIN CALCIUM 80 MG TABLET PO SCH (22:00)
[2019-12-06 01:00] LABS: APPEARANCE,URINE CLEAR; BILIRUBIN,URINE NEGATIVE (NEGATIVE); COLOR,URINE YELLOW; GLUCOSE, URINE NEGATIVE (NEGATIVE); KETONES,URINE NEGATIVE (NEGATIVE); LEUKOCYTE ESTERASE,URINE NEGATIVE (NEGATIVE); NITRITE,URINE NEGATIVE (NEGATIVE); PROTEIN,URINE NEGATIVE (NEGATIVE); URINE SPECIFIC GRAVITY 1.013; UROBILINOGEN,URINE NEGATIVE mg/dL (<2.0)
[2019-12-06 05:10] LABS: CREATINE KINASE MB 1.04 ng/mL (<4.55); TROPONIN I < 0.012 ng/mL
[2019-12-06 08:33] LABS: ALBUMIN 2.5 g/dL (3.5-5.0); ALKALINE PHOSPHATASE 87 U/L (38-126); ANION GAP 6 (5-19); ASPARTATE AMINO TRANSFERASE 24 U/L (14-36); BILIRUBIN,DIRECT 0.3 mg/dL (0.0-0.4); BILIRUBIN,TOTAL 0.7 mg/dL (0.2-1.3); BLOOD UREA NITROGEN 11 mg/dL (7-20); CARBON DIOXIDE 34 mmol/L (22-30); CHLORIDE 100 mmol/L (98-107); GLUCOSE 94 mg/dL (75-110); TOTAL PROTEIN 5.2 g/dL (6.3-8.2)
[2019-12-06 08:42] LABS: POTASSIUM 2.9 mmol/L (3.6-5.0)
[2019-12-06 09:54] VITALS: BP 168/49
[2019-12-06] MEDS: ENOXAPARIN SODIUM INJ 40 MG/0.4 ML DISP.SYRIN SUBCUT SCH (09:54)
[2019-12-06] MEDS: METOPROLOL TARTRATE 25 MG TABLET PO SCH (09:55)
[2019-12-06] MEDS ORDERED: POTASSIUM CHLORIDE 10 MEQ TABLET.ER PO SCH (10:00)
--- NOTE | 2019-12-06 12:47 | PDOC H&P ---
History of Present Illness Admission Date/PCP: 12/05/19 11:49 PIEDAD SMYTH MD History of Present Illness: NARENDRA PAPPAS is a 84 year old female, she came to the office for follow-up evaluation, she complained of chest pain, the pain is atypical in character it is subcostal pain, she describes the pain as a circumferential pain that involved the back, she feels the pain with movement, the pain is not provoked by activity or emotional outburst it is not relieved by rest it is not typical ischemic chest pain. In the office a 12-lead EKG was done, it demonstrated sinus rhythm, Q waves in V1 V2, because of patient's age and the fact that the EKG was abnormal, she was admitted directly to the hospital for further evaluation. The serum d-dimer was elevated CT angiogram of the chest was done, it was negative for pulmonary embolus there was no mass there was no pneumonia on the x-ray., 3 sets of cardiac enzymes were negative for acute NC. The chest pain does not represent acute coronary syndrome, the pretest probability for ischemic chest pain in this patient is extremely low. She be discharged home today she was brought in for observation. Past Medical History Cardiac Medical History: Reports: Hypertension GI Medical History: Reports: Gastroesophageal Reflux Disease Musculoskeltal Medical History: Reports: Arthritis - Rheumatoid arthritis Psychiatric Medical History: Denies: Depression Past Surgical History Past Surgical History: Reports: Herniorrhaphy - Inguinal hernia repair, Hysterectomy, Orthopedic Surgery - Right Carpal tunnel surgery, Other - Patient reports having a colonoscopy 2 weeks ago with polypectomy 16; Social History Smoking Status: Never Smoker Electronic Cigarette use?: No Frequency of Alcohol Use: None Hx Recreational Drug Use: No Drugs: None Hx Prescription Drug Abuse: No Family History Family History: CAD, CVA, DM, Malignancy Parental Family History Reviewed: Yes Children Family History Reviewed: Yes Sibling(s) Family History Reviewed.: Yes Medication/Allergy Home Medications: Cholecalciferol (Vitamin D3) [Vitamin D3 1000 Unit Tablet] 1,000 unit PO DAILY 02/25/17 [place]-3 Fatty Acids/Fish Oil [Fish Oil 1,000 mg Capsule] 1 cap PO DAILY 02/25/17 Omeprazole 20 mg PO DAILY 02/25/17 Cyanocobalamin (Vitamin B-12) [Vitamin B-12 1000 Mcg Tablet] 1,000 mcg PO DAILY 05/24/19 Magnesium Oxide [Mag-Ox 400 mg Tablet] 400 mg PO DAILY 05/24/19 Potassium Gluconate [Potassium] 99 mg PO DAILY 05/24/19 Valsartan/Hydrochlorothiazide [Valsartan-Hctz 320-12.5 mg Tab] 1 tab PO DAILY 12/05/19 Allergies/Adverse Reactions: No Known Allergies Allergy (Verified 03/09/19 09:15) Review of Systems Constitutional: ABSENT: chills, fever(s), headache(s), weight gain, weight loss Eyes: ABSENT: visual disturbances Ears: ABSENT: hearing changes Cardiovascular: PRESENT: chest pain. ABSENT: dyspnea on exertion, edema, orthropnea, palpitations Respiratory: ABSENT: cough, hemoptysis Gastrointestinal: ABSENT: abdominal pain, constipation, diarrhea, hematemesis, h ematochezia, nausea, vomiting Genitourinary: ABSENT: dysuria, hematuria Musculoskeletal: ABSENT: joint swelling Integumentary: ABSENT: rash, wounds Neurological: ABSENT: abnormal gait, abnormal speech, confusion, dizziness, focal weakness, syncope Psychiatric: ABSENT: anxiety, depression, homidical ideation, suicidal ideation Endocrine: ABSENT: cold intolerance, heat intolerance, menstrual abnormalities, polydipsia, polyuria Hematologic/Lymphatic: ABSENT: easy bleeding, easy bruising, lymphadenopathy Physical Exam Vital Signs: Temp Pulse Resp BP Pulse Ox 97.2 F 67 16 168/49 H 100 12/06/19 08:16 12/06/19 08:16 12/06/19 08:16 12/06/19 08:16 12/06/19 08:16 Intake & Output 12/05/19 12/06/19 12/07/19 06:59 06:59 06:59 Intake Total 707 Output Total 1000 Balance -293 Weight 41.6 kg General appearance: PRESENT: no acute distress, well-developed, well-nourished Head exam: PRESENT: atraumatic, normocephalic Eye exam: PRESENT: conjunctiva pink, EOMI, PERRLA. ABSENT: scleral icterus Ear exam: PRESENT: normal external ear exam Mouth exam: PRESENT: moist, tongue midline Neck exam: PRESENT: full ROM. ABSENT: carotid bruit, JVD, lymphadenopathy, thyromegaly Cardiovascular exam: PRESENT: RRR, +S1, +S2. ABSENT: diastolic murmur, rubs, systolic murmur Pulses: PRESENT: normal dorsalis pedis pul, +2 pedal pulses bilateral Vascular exam: PRESENT: normal capillary refill GI/Abdominal exam: PRESENT: normal bowel sounds, soft Rectal exam: PRESENT: deferred Neurological exam: PRESENT: alert, awake, oriented to person, oriented to place, oriented to time, oriented to situation, CN II-XII grossly intact Psychiatric exam: PRESENT: appropriate affect, normal mood Skin exam: PRESENT: dry, intact, warm Results Laboratory Results: 12/05/19 11:49 12/06/19 04:00 12/05/19 12/05/19 12/06/19 11:49 23:35 04:00 Sodium 139.5 Potassium 2.9 L* Chloride 100 Carbon Dioxide 34 H Anion Gap 6 BUN 11 Creatinine 0.41 L Est GFR ( Amer) > 60 Glucose 94 Calcium 9.0 Total Bilirubin 0.7 AST 24 Alkaline Phosphatase 87 Total Protein 5.2 L Albumin 2.5 L TSH 5.04 H Free T4 1.05 Urine Color YELLOW Urine Appearance CLEAR Urine pH 7.0 Ur Specific [place] 1.013 Urine Protein NEGATIVE Urine Glucose (UA) NEGATIVE Urine Ketones NEGATIVE Urine Blood NEGATIVE Urine Nitrite NEGATIVE Ur Leukocyte Esterase NEGATIVE Urine WBC (Auto) 0 Urine RBC (Auto) 0 12/05/19 12/05/19 12/05/19 11:49 11:49 19:14 Creatine Kinase 70 51 CK-MB (CK-2) 1.40 Troponin I < 0.012 12/05/19 12/06/19 12/06/19 19:14 04:00 04:00 Creatine Kinase 41 CK-MB (CK-2) 1.18 1.04 Troponin I < 0.012 < 0.012 Impressions: Chest X-Ray 12/05/19 00:00 IMPRESSION: NO ACUTE RADIOGRAPHIC FINDING IN THE CHEST. Chest/Abdomen CTA 12/05/19 00:00 IMPRESSION: No evidence of pulmonary embolus. Lungs grossly clear. . Assessment & Plan - Diagnosis (1) Chest pain Qualifiers: Chest pain type: intercostal pain Qualified Code(s): R07.82 - Intercostal pain Is this a current diagnosis for this admission?: Yes Plan: The chest pain is probably musculoskeletal chest pain, 3 sets of cardiac enzymes negative for acute NC, CT angiogram of the chest negative for pulmonary embolism, mass lesion or any consolidation to suggest pneumonia (2) Hypokalemia Is this a current diagnosis for this admission?: Yes Plan: She has hypokalemia this was replaced - Time Time Spent: Greater than 70 Minutes Medications reviewed and adjusted accordingly: Yes Anticipated Discharge Disposition: Home, Self Care Anticipated Discharge Timeframe: within 24 hours
--- NOTE | 2019-12-06 12:53 | PDOC DISCHARGE SUMMARY ---
Impression - Admit/DC Date/PCP Admission Date/Primary Care Provider: 12/05/19 11:49 PIEDAD SMYTH MD Discharge Date: 12/06/19 - Discharge Diagnosis (1) Chest pain Is this a current diagnosis for this admission?: Yes (2) Hypokalemia Is this a current diagnosis for this admission?: Yes (3) Essential (primary) hypertension Is this a current diagnosis for this admission?: Yes - Additional Information Referrals: PIEDAD SMYTH MD [Primary Care Provider] - Follow up as needed Prescriptions: Potassium Chloride [Klor-Con 10 Meq Tablet ER] 40 meq PO Q4 #3 tablet.er Home Medications: Cholecalciferol (Vitamin D3) [Vitamin D3 1000 Unit Tablet] 1,000 unit PO DAILY 02/25/17 Branscomb-3 Fatty Acids/Fish Oil [Fish Oil 1,000 mg Capsule] 1 cap PO DAILY 02/25/17 Omeprazole 20 mg PO DAILY 02/25/17 Cyanocobalamin (Vitamin B-12) [Vitamin B-12 1000 mcg Tablet] 1,000 mcg PO DAILY 05/24/19 Magnesium Oxide [Mag-Ox 400 mg Tablet] 400 mg PO DAILY 05/24/19 Potassium Gluconate [Potassium] 99 mg PO DAILY 05/24/19 Valsartan/Hydrochlorothiazide [Valsartan-Hctz 320-12.5 mg Tab] 1 tab PO DAILY 12/05/19 Potassium Chloride [Klor-Con 10 Meq Tablet ER] 40 meq PO Q4 #3 tablet.er 12/06/19 History of Present Illiness History of Present Illness: NARENDRA PAPPAS is a 84 year old female, she came to the office for follow-up evaluation, she complained of chest pain, the pain is atypical in character it is subcostal pain, she describes the pain as a circumferential pain that involved the back, she feels the pain with movement, the pain is not provoked by activity or emotional outburst it is not relieved by rest it is not typical ischemic chest pain. In the office a 12-lead EKG was done, it demonstrated sinus rhythm, Q waves in V1 V2, because of patient's age and the fact that the EKG was abnormal, she was admitted directly to the hospital for further evaluation. The serum d-dimer was elevated CT angiogram of the chest was done, it was negative for pulmonary embolus there was no mass there was no pneumonia on the x-ray., 3 sets of cardiac enzymes were negative for acute FL. The chest pain does not represent acute coronary syndrome, the pretest probability for ischemic chest pain in this patient is extremely low. She be discharged home today she was brought in for observation. Hospital Course Hospital Course: Patient was admitted for the management of chest pain, the chest pain is atypical, the pretest probability for ischemic heart disease is extremely low in this patient, 3 sets of cardiac enzymes were negative for acute FL. CT angiogram of the chest was done, there was no pulmonary embolism there was no mass there was no pneumonia the chest pain is more consistent with musculoskeletal chest pain. She was found to have hypokalemia this was replaced. Physical Exam Vital Signs: Temp Pulse Resp BP Pulse Ox 97.2 F 67 16 168/49 H 100 12/06/19 08:16 12/06/19 08:16 12/06/19 08:16 12/06/19 08:16 12/06/19 08:16 Intake & Output 12/05/19 12/06/19 12/07/19 06:59 06:59 06:59 Intake Total 707 Output Total 1000 Balance -293 Weight 41.6 kg General appearance: PRESENT: no acute distress Eye exam: PRESENT: PERRLA Respiratory exam: PRESENT: clear to auscultation tonya Cardiovascular exam: PRESENT: +S1, +S2 GI/Abdominal exam: PRESENT: soft Neurological exam: PRESENT: alert, CN II-XII grossly intact Results Laboratory Results: WBC 6.5 10^3/uL (4.0-10.5) 12/05/19 11:49 RBC 4.12 10^6/uL (3.72-5.28) 12/05/19 11:49 Hgb 13.3 g/dL (12.0-15.5) 12/05/19 11:49 Hct 38.3 % (36.0-47.0) 12/05/19 11:49 MCV 93 fl (80-97) 12/05/19 11:49 MCH 32.2 pg (27.0-33.4) 12/05/19 11:49 MCHC 34.7 g/dL (32.0-36.0) 12/05/19 11:49 RDW 14.7 % (11.5-14.0) H 12/05/19 11:49 Plt Count 345 10^3/uL (150-450) 12/05/19 11:49 Lymph % (Auto) 26.3 % (13-45) 12/05/19 11:49 [place] % (Auto) 9.6 % (3-13) 12/05/19 11:49 Eos % (Auto) 1.2 % (0-6) 12/05/19 11:49 Baso % (Auto) 0.9 % (0-2) 12/05/19 11:49 Absolute Neuts (auto) 4.0 10^3/uL (1.7-8.2) 12/05/19 11:49 Absolute Lymphs (auto) 1.7 10^3/uL (0.5-4.7) 12/05/19 11:49 Absolute Monos (auto) 0.6 10^3/uL (0.1-1.4) 12/05/19 11:49 Absolute Eos (auto) 0.1 10^3/uL (0.0-0.6) 12/05/19 11:49 Absolute Basos (auto) 0.1 10^3/uL (0.0-0.2) 12/05/19 11:49 Seg Neutrophils % 62.0 % (42-78) 12/05/19 11:49 D-Dimer 1.04 ug/mL (0.00-0.50) H 12/05/19 11:49 Sodium 139.5 mmol/L (137-145) 12/06/19 04:00 Potassium 2.9 mmol/L (3.6-5.0) L* 12/06/19 04:00 Chloride 100 mmol/L (98-107) 12/06/19 04:00 Carbon Dioxide 34 mmol/L (22-30) H 12/06/19 04:00 Anion Gap 6 (5-19) 12/06/19 04:00 BUN 11 mg/dL (7-20) 12/06/19 04:00 Creatinine 0.41 mg/dL (0.52-1.25) L 12/06/19 04:00 Est GFR ( Amer) > 60 (>60) 12/06/19 04:00 Est GFR (MDRD) Non-Af > 60 (>60) 12/06/19 04:00 Glucose 94 mg/dL (75-110) 12/06/19 04:00 Calcium 9.0 mg/dL (8.4-10.2) 12/06/19 04:00 Total Bilirubin 0.7 mg/dL (0.2-1.3) 12/06/19 04:00 Direct Bilirubin 0.3 mg/dL (0.0-0.4) 12/06/19 04:00 Neonat Total Bilirubin Not Reportable 12/06/19 04:00 Neonat Direct Bilirubin Not Reportable 12/06/19 04:00 Neonat Indirect Bili Not Reportable 12/06/19 04:00 AST 24 U/L (14-36) 12/06/19 04:00 ALT 18 U/L (<35) 12/06/19 04:00 Alkaline Phosphatase 87 U/L (38-126) 12/06/19 04:00 Creatine Kinase 41 U/L (30-135) 12/06/19 04:00 CK-MB (CK-2) 1.04 ng/mL (<4.55) 12/06/19 04:00 Troponin I < 0.012 ng/mL 12/06/19 04:00 Total Protein 5.2 g/dL (6.3-8.2) L 12/06/19 04:00 Albumin 2.5 g/dL (3.5-5.0) L 12/06/19 04:00 TSH 5.04 uIU/mL (0.47-4.68) H 12/05/19 11:49 Free T4 1.05 ng/dL (0.78-2.19) 12/05/19 11:49 Urine Color YELLOW 12/05/19 23:35 Urine Appearance CLEAR 12/05/19 23:35 Urine pH 7.0 (5.0-9.0) 12/05/19 23:35 Ur Specific [place] 1.013 12/05/19 23:35 Urine Protein NEGATIVE mg/dL (NEGATIVE) 12/05/19 23:35 Urine Glucose (UA) NEGATIVE mg/dL (NEGATIVE) 12/05/19 23:35 Urine Ketones NEGATIVE mg/dL (NEGATIVE) 12/05/19 23:35 Urine Blood NEGATIVE (NEGATIVE) 12/05/19 23:35 Urine Nitrite NEGATIVE (NEGATIVE) 12/05/19 23:35 Urine Bilirubin NEGATIVE (NEGATIVE) 12/05/19 23:35 Urine Urobilinogen NEGATIVE mg/dL (<2.0) 12/05/19 23:35 Ur Leukocyte Esterase NEGATIVE (NEGATIVE) 12/05/19 23:35 Urine WBC (Auto) 0 /HPF 12/05/19 23:35 Urine RBC (Auto) 0 /HPF 12/05/19 23:35 Urine Ascorbic Acid NEGATIVE (NEGATIVE) 12/05/19 23:35 12/05/19 12/05/19 12/06/19 11:49 19:14 04:00 CK-MB (CK-2) 1.40 1.18 1.04 Troponin I < 0.012 < 0.012 < 0.012 Impressions: Chest X-Ray 12/05/19 00:00 IMPRESSION: NO ACUTE RADIOGRAPHIC FINDING IN THE CHEST. Chest/Abdomen CTA 12/05/19 00:00 IMPRESSION: No evidence of pulmonary embolus. Lungs grossly clear. . Stroke Is this a Stroke Patient?: No Acute Heart Failure Is this a Heart Failure Patient?: No
--- NOTE | 2019-12-08 02:29 | EKG REPORT ---
SEVERITY:- ABNORMAL ECG - SINUS RHYTHM MINIMAL ST DEPRESSION, ANTEROLATERAL LEADS : Confirmed by: Efra Mahoney MD 08-Dec-2019 02:29:17
== END 2019-12-06 14:41 | disposition home or self-care (01) | DRG 313 ==
LOC: ER 10:33 → EH 11:49 → 3S 18:13
PROVIDERS: ADMIT Internal Medicine; ATTEND Internal Medicine
DX: R07.89 Other chest pain (principal); E87.6 Hypokalemia; I10 Essential (primary) hypertension; K21.9 Gastro-esophageal reflux disease without esophagitis; M06.9 Rheumatoid arthritis, unspecified; Z90.49 Acquired absence of other specified parts of digestive tract; Z90.710 Acquired absence of both cervix and uterus; Z86.010 Personal history of colon polyps; Z82.3 Family history of stroke; Z83.3 Family history of diabetes mellitus; Z82.49 Family history of ischemic heart disease and other diseases of the circulatory system; Z79.899 Other long term (current) drug therapy
CPT/HCPCS: 36415; 71046; 71275; 80053; 81001; 82550; 82553; 84439; 84443; 84484; 85025; 85379; 93005; 93010; J1650; J3480; J3490; J7030